=== PATIENT | female | born 1955 | race Caucasian/White ===

== ENCOUNTER 2016-09-29 22:37 | Emergency (ER) | payer BC ==
[~2016-09-29 22:37] MED LIST: ACYC1CAP8 PO; ALLE180T33 PO; ASPI81TA85 PO; BACTRIM PO; ESTR25TD TD; FLON1SPR; LOPE2CA PO; NAPR500T2 PO; PANT40TA2 PO; PENT10CA PO; PEPT262T2 PO; REST0.05 OU; TRAM50TA2 PO; VENL150C43 PO
[2016-09-29] MEDS ORDERED: ASPIRIN 81 MG CHEW TABLET As Ordered ONE (23:50)
[2016-09-29] MEDS ORDERED: NITROGLYCERIN 0.4 MG SUBL TABLET As Ordered ONE (23:50)
[2016-09-30 00:29] LABS: BASO % 1.1 % (0.0-1.0); EOS # 0.1 K/mm3 (0.0-0.50); LARGE UNSTAINED CELL # 0.1 K/mm3 (0.0-0.4); LARGE UNSTAINED CELL % 2.9 % (0.0-4.0); LYMPH # 1.6 K/mm3 (1.5-4.5); LYMPH % 34.3 % (24.0-44.0); MEAN CORPUSCULAR HEMOGLOBIN 30.3 pg (27.0-33.0); MEAN CORPUSCULAR HGB CONC 32.1 g/dl (32.0-36.5); MEAN CORPUSCULAR VOLUME 94.3 fl (80.0-96.0); MONO # 0.2 K/mm3 (0.0-0.8); MONO % 5.4 % (0.0-5.0); NEUTROPHILS # 2.3 K/mm3 (1.8-7.7); NEUTROPHILS % 53.3 % (36.0-66.0); PLATELET COUNT, AUTOMATED 149 k/mm3 (150-450); RED CELL DISTRIBUTION WIDTH 14.4 % (11.5-14.5); WHITE BLOOD COUNT 4.3 K/mm3 (4.0-10.0)
[2016-09-30 01:09] LABS: ANION GAP 10 MEQ/L (8-16); BLOOD UREA NITROGEN 16 MG/DL (7-18); CALCIUM LEVEL 8.7 MG/DL (8.8-10.2); CARBON DIOXIDE LEVEL 27 MEQ/L (21-32); CHLORIDE LEVEL 107 MEQ/L (98-107); CREATININE FOR GFR 1.31 MG/DL (0.55-1.02); GLOMERULAR FILTRATION RATE 44.1 (>45); GLUCOSE, FASTING 89 MG/DL (80-110); POTASSIUM SERUM 3.9 MEQ/L (3.5-5.1); SODIUM LEVEL 144 MEQ/L (136-145)
[2016-09-30] MEDS ORDERED: MORPHINE 2 MG/ML 1ML SYRINGE As Ordered ONE (03:41)
[2016-09-30] MEDS ORDERED: ONDANSETRON 4MG/2ML VIAL (J2405) As Ordered ONE (03:41)
[2016-09-30] MEDS ORDERED: GI COCKTAIL 50ML BTL(HYOSCYAMINE/MAALOX/LIDOCAINE VISCOUS)(1:3:1) As Ordered ONE (06:51)
--- NOTE | 2016-09-30 08:01 | EDDOCDS ---
Physician Documentation [facility] Name: Janie Field Age: 61 yrs Sex: Female : 1955 Arrival Date: 09/29/2016 Time: 22:37 Bed 17 Private MD: Disposition: 09/30/16 07:17 Discharged to Home/Self Care. Impression: Chest pain, unspecified. - Condition is Stable. - Discharge Instructions: Nonspecific Chest Pain, Gastroesophageal Reflux Disease, Adult, Nonspecific Chest Pain, [id number]. - Medication Reconciliation, Local Pharmacy Hours form. - Follow up: Ashley Menard; When: As previously arranged; Reason: Continuance of care. - Problem is an acute exacerbation. - Symptoms have improved. Historical: - Allergies: Dilaudid; Toradol; statins; metals; osteoprosis meds; - Home Meds: 1. aspirin 81 mg Oral chew 1 tab once daily 2. Elmiron 100 mg oral cap 1 cap 3 times per day 3. Dexilant 60 mg oral CpDB 1 cap once daily 4. Effexor XR 150 mg Oral cp24 1 cap once daily 5. pregabalin 25 mg Oral cap 1 caps nightly 6. Zofran (as hydrochloride) 4 mg Oral tab as needed 7. Bactrim DS Oral as needed 8. Pyridium 100 mg Oral tab as needed 9. Restasis 0.05 % ophthalmic dpet twice a day 10. Naprosyn 250 mg Oral tab 2 tabs daily 11. Fexofenadine HCl Oral once daily - PMHx: [place]; Stroke; sepsis; Chron's Disease; Interstitial Cystitis; Fibromyalgia; GERD; Hypertension; - PSHx: Ileostomy Construction; Hysterectomy; Carpal Tunnel Repair- Right; Carpal Tunnel Repair- Left; Cataract Surgery- Bilateral; - Social history: Smoking status: Patient states former smoker of tobacco. No barriers to communication noted, The patient speaks fluent Sudanese. - Family history: Not pertinent. - : The pt / caregiver states he / she is not on anticoagulants. Home medication list is obtained from the patient. - Exposure Risk Screening:: None identified. Vital Signs: 09/29 22:39 BP 155 / 80; Pulse 74; Resp 18; Temp 97.3(O); Pulse Ox 99% on R/A; Weight 64.86 kg / tadeo 142.99 lbs (R); Height 5 ft. 5 in. (165.10 cm) (R); Pain 4/10; 09/30 00:01 BP 152 / 98 (auto/); js15 00:01 Pulse 52 MON; Pulse Ox 97% ; js15 00:16 BP 141 / 78 (auto/); js15 00:16 Pulse 52 MON; Pulse Ox 96% ; js15 00:31 BP 131 / 65 (auto/); js15 00:31 Pulse 50 MON; Pulse Ox 97% ; js15 00:34 BP 141 / 78; Pain 4/10; kc3 00:35 BP 130 / 80; Pain 3/10; kc3 00:36 BP 131 / 65; Pain 2/10; kc3 01:01 Pulse 48 MON; Pulse Ox 98% ; js15 01:01 BP 109 / 57 (auto/); js15 01:31 BP 103 / 56 (auto/); js15 01:31 Pulse 50 MON; Pulse Ox 97% ; js15 02:01 Pulse 48 MON; Pulse Ox 97% ; js15 02:01 BP 112 / 56 (auto/); js15 02:31 BP 114 / 55 (auto/); js15 02:32 Pulse 50 MON; Pulse Ox 97% ; js15 03:01 BP 99 / 54 (auto/); js15 03:02 Pulse 46 MON; Pulse Ox 97% ; js15 04:43 Pulse 58 MON; Pulse Ox 96% ; js15 04:43 BP 123 / 73 (auto/); js15 04:58 BP 122 / 76 (auto/); js15 04:59 Pulse 50 MON; Pulse Ox 94% ; js15 05:13 BP 124 / 73 (auto/); js15 05:13 Pulse 50 MON; Pulse Ox 96% ; js15 05:28 BP 116 / 75 (auto/); js15 05:29 Pulse 58 MON; Pulse Ox 95% ; js15 05:42 Pulse 50 MON; Pulse Ox 96% ; js15 05:43 BP 124 / 61 (auto/); js15 05:57 Pulse 48 MON; Pulse Ox 96% ; js15 05:58 BP 120 / 75 (auto/); js15 06:13 BP 127 / 71 (auto/); js15 06:13 Pulse 46 MON; Pulse Ox 95% ; js15 06:43 BP 131 / 79 (auto/); bcj 06:43 Pulse 46 MON; Pulse Ox 96% ; bcj 06:58 BP 136 / 74 (auto/); bcj 06:58 Pulse 44 MON; Pulse Ox 95% ; bcj 09/29 22:39 Body Mass Index 23.80 (64.86 kg, 165.10 cm) tadeo MDM: 09/29 22:45 ECG WITH READING ER PHYS+CARDIAG ordered. EDMS 23:42 Aspirin Chewable Tablet 243 mg PO once ordered. mm11 23:42 Nitrostat 0.4 mg Sublingual every 5 minutes; hold if SBP<90mmHg.Document Pain Score mm11 Response to Each Dose x3 ordered. 23:42 Band Tumbler/Pulse Ox/q 30 min VS ordered. mm11 23:42 IV Saline Lock ordered. mm11 23:42 Rhythm Strip to chart ordered. mm11 23:42 Undress patient appropriately for examination ordered. mm11 23:43 Chest, 2 View (pa\E\lat) Ordered. EDMS 23:43 Basic Metabolic Profile Ordered. EDMS 23:43 CBC with Diff Ordered. EDMS 23:43 Cardiac Injury Profile Ordered. EDMS 23:43 Troponin Ordered. EDWY 09/30 00:23 Financial registration complete. [facility] 00:42 [facility] Agreement was scanned into [employer] and attached to record. [facility] 01:21 Basic Metabolic Profile Reviewed. 11 01:21 CBC with Diff Reviewed. mm11 01:21 Cardiac Injury Profile Reviewed. mm11 01:21 Troponin Reviewed. mm11 03:22 morphine 2 mg IVP once ordered. mm11 03:22 Ondansetron 4 mg IVP once ordered. mm11 04:10 Redraw CIP &Troponin (put time in details section) ordered. mm11 04:10 Repeat EKG (put time details section) ordered. mm11 04:13 Repeat EKG (put time details section) complete. kb5 04:13 Redraw CIP &Troponin (put time in details section) complete. kb5 04:14 CARDIAC INJURY PROFILE Ordered. EDMS 04:14 TROPONIN Ordered. EDMS 04:15 ELECTROCARDIOGRAM ADULT ordered. EDMS 06:42 CARDIAC INJURY PROFILE Reviewed. mm11 06:42 TROPONIN Reviewed. mm11 06:50 GI Cocktail - (Alum-Mag Hydroxide-Simeth 30 ml, Lidocaine 10 ml, Hyoscyamine 10 ml) PO mm11 once; Pre-mixed 50mL unit dose ordered. Administered Medications: 00:05 Drug: Aspirin 243 mg [aspirin 81 mg chewable tablet (3 tabs)] Route: PO; kc3 00:06 Drug: Nitrostat 0.4 mg [Nitrostat 0.4 mg sublingual tablet (1 tabs)] Route: Sublingual; kc3 00:17 Drug: Nitrostat 0.4 mg [Nitrostat 0.4 mg sublingual tablet (1 tabs)] Route: Sublingual; kc3 00:24 Drug: Nitrostat 0.4 mg [Nitrostat 0.4 mg sublingual tablet (1 tabs)] Route: Sublingual; kc3 00:34 Follow up: BP 141 / 78; Pain 4/10 Adult kc3 00:35 Follow up: BP 130 / 80; Pain 3/10 Adult; Pt's second dose delayed r/t pt c/o headache kc3 and wanted to delay time of second dose. 00:36 Follow up: BP 131 / 65; Pain 2/10 Adult kc3 03:48 Drug: morphine 2 mg [morphine 2 mg/mL intravenous cartridge (1 mL)] Route: IVP; Site: js15 left antecubital; 03:48 Drug: Ondansetron 4 mg [ondansetron HCl 2 mg/mL intravenous solution (2 mL)] Route: js15 IVP; Site: left antecubital; 06:54 Drug: GI Cocktail - (Alum-Mag Hydroxide-Simeth Suspension 225 mg-200 mg-25 mg/5 mL 30 js15 ml, Lidocaine Liquid 2 % 10 ml, Hyoscyamine Liquid 10 ml) Route: PO; Signatures: Dispatcher [employer] EDErasto Fields, RN RN Ranulfo Kuo, HORSE RACING MANAGER HORSE RACING MANAGER kb5 Cristóbal Rios DO DO mm11 Krista ShresthaRN RN ms18 Mesha Torres [facility] Alexandra Chu RN js15 Simona Chatterjee RN kc3 The chart was reviewed and I authenticate all verbal orders and agree with the evaluation and treatment provided.Attachments: 00:42 [facility] Payment Agreement [facility] MTDD
--- NOTE | 2016-09-30 08:01 | EDDOCDS ---
Nurse's Notes [facility] Name: Janie Field Age: 61 yrs Sex: Female : 1955 Arrival Date: 09/29/2016 Time: 22:37 Bed 17 Private MD: Diagnosis: Chest pain, unspecified Presentation: 09/29 22:45 Presenting complaint: Patient states: that all day long she has had chest pressure. Pt ms18 has had a nuclear stress test done in the past, showed angina. Pt reports being exhausted and have SOB, sleeping more, and worsening pressure this evening. Pt reports that the pain changed from pressure to stabbing. 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 pt took 1 81mg aspirin prior to coming to the ED. Adult Sepsis Screening: The patient does not have new or worsening altered mentation. Patient's respiratory rate is less than 22. Systolic blood pressure is greater than 100. Patient has a qSOFA score of 0- Negative Sepsis Screen. Suicide/Homicide risk assessment- the patient denies having any suicidal and/or homicidal ideations and does not present with any other emotional, behavioral or mental health complaints. Status: Patient is not a director of employer services or dependent. Transition of care: patient was not received from another setting of care. 22:45 Acuity: CHHAYA Level 2 ms18 22:45 Method Of Arrival: Walkin/Carried/Asstd ms18 Triage Assessment: 22:57 General: Appears in no apparent distress, comfortable, Behavior is appropriate for age, ms18 cooperative. Pain: Pain currently is 5 out of 10 on a pain scale. HIV screening NA for this visit Offered previously. Neurological: No deficits noted. Cardiovascular: Chest pain is described as mild, diffuse, quality is pressure, radiates Does not radiate. episodes are continuous began this morning. Respiratory: Airway is patent Respiratory effort is even, unlabored. Respiratory: Reports shortness of breath on exertion. Derm: Skin is pink, warm & dry. Historical: - Allergies: Dilaudid; Toradol; statins; metals; osteoprosis meds; - Home Meds: 1. aspirin 81 mg Oral chew 1 tab once daily 2. Elmiron 100 mg oral cap 1 cap 3 times per day 3. Dexilant 60 mg oral CpDB 1 cap once daily 4. Effexor XR 150 mg Oral cp24 1 cap once daily 5. pregabalin 25 mg Oral cap 1 caps nightly 6. Zofran (as hydrochloride) 4 mg Oral tab as needed 7. Bactrim DS Oral as needed 8. Pyridium 100 mg Oral tab as needed 9. Restasis 0.05 % ophthalmic dpet twice a day 10. Naprosyn 250 mg Oral tab 2 tabs daily 11. Fexofenadine HCl Oral once daily - PMHx: [place]; Stroke; sepsis; Chron's Disease; Interstitial Cystitis; Fibromyalgia; GERD; Hypertension; - PSHx: Ileostomy Construction; Hysterectomy; Carpal Tunnel Repair- Right; Carpal Tunnel Repair- Left; Cataract Surgery- Bilateral; - Social history: Smoking status: Patient states former smoker of tobacco. No barriers to communication noted, The patient speaks fluent Turkmen. - Family history: Not pertinent. - : The pt / caregiver states he / she is not on anticoagulants. Home medication list is obtained from the patient. - Exposure Risk Screening:: None identified. Screenin/30 00:21 Screening information is obtained from the patient. Fall risk: No risks identified. kc3 Assistance ADL's: requires no assistance with activities of daily living. Abuse/DV Screen: The patient / caregiver reports he/she is: not in a situation that causes fear, pain or injury. Nutritional screening: No deficits noted. home support is adequate. 07:39 Advance Directives: Currently, there is no health care proxy. [facility] Assessment: 09/29 23:30 General: Appears in no apparent distress, comfortable, Behavior is appropriate for age, kc3 cooperative. Pain: Location: chest Pain currently is 5 out of 10 on a pain scale. Neurological: Level of Consciousness is awake, alert, obeys commands, Oriented to person, place, time. Cardiovascular: Rhythm is sinus bradycardia Chest pain is described as Pain is 5 out of 10 on a pain scale. Respiratory: Airway is patent Respiratory effort is even, unlabored, Reports shortness of breath. Derm: Skin is pink, warm & dry. 09/30 00:21 General: Appears in no apparent distress, comfortable, Behavior is appropriate for age, kc3 cooperative. Pain: Location: chest. Neurological: Level of Consciousness is awake, alert, obeys commands, Oriented to person, place, time. Cardiovascular: Rhythm is sinus bradycardia Chest pain is described as Pain is 4 out of 10 on a pain scale. Respiratory: Airway is patent Respiratory effort is even, unlabored. Derm: Skin is pink, warm & dry. 01:21 General: Appears to be sleeping. Cardiovascular: Rhythm is sinus bradycardia. js15 Respiratory: Airway is patent Respiratory effort is even, unlabored, Respiratory pattern is regular, symmetrical. Derm: Skin is pink, warm & dry. 02:30 Reassessment: Patient appears in no apparent distress at this time. Pt appears to be js15 sleeping comfortably on stretcher with lights off; respirations even and unlabored; skin warm, dry; cardiac rhythm is regular, sinus lucretia; will continue to monitor. 03:45 Reassessment: Patient appears in no apparent distress at this time. Pt awake on js15 stretcher; reports chest pressure 4/10; respirations even and unlabored; cardiac rhythm is sinus lucretia; skin pink, warm, dry will continue to monitor. 05:00 General: Appears in no apparent distress, to be sleeping. Cardiovascular: Rhythm is js15 sinus bradycardia. Respiratory: Airway is patent Respiratory effort is even, unlabored, Respiratory pattern is regular, symmetrical. Derm: Skin is pink, warm & dry. 06:15 Reassessment: Patient appears in no apparent distress at this time. Pt resting on js15 stretcher with eyes closed; respirations even and unlabored; skin pink, warm, dry; cardiac rhythm is sinus lucretia; will continue to monitor. 07:37 General: Appears in no apparent distress, comfortable, Behavior is cooperative. Pain: bcj Location: chest Pain currently is 1 out of 10 on a pain scale. Cardiovascular: Rhythm is sinus bradycardia. Derm: Skin is pink, warm & dry. Vital Signs: 09/29 22:39 BP 155 / 80; Pulse 74; Resp 18; Temp 97.3(O); Pulse Ox 99% on R/A; Weight 64.86 kg (R); tadeo Height 5 ft. 5 in. (165.10 cm) (R); Pain 4/10; 09/30 00:01 BP 152 / 98 (auto/); js15 00:01 Pulse 52 MON; Pulse Ox 97% ; js15 00:16 BP 141 / 78 (auto/); js15 00:16 Pulse 52 MON; Pulse Ox 96% ; 15 00:31 BP 131 / 65 (auto/); 15 00:31 Pulse 50 MON; Pulse Ox 97% ; 15 00:34 BP 141 / 78; Pain 4/10; kc3 00:35 BP 130 / 80; Pain 3/10; kc3 00:36 BP 131 / 65; Pain 2/10; kc3 01:01 Pulse 48 MON; Pulse Ox 98% ; js15 01:01 BP 109 / 57 (auto/); js15 01:31 BP 103 / 56 (auto/); js15 01:31 Pulse 50 MON; Pulse Ox 97% ; js15 02:01 Pulse 48 MON; Pulse Ox 97% ; js15 02:01 BP 112 / 56 (auto/); js15 02:31 BP 114 / 55 (auto/); js15 02:32 Pulse 50 MON; Pulse Ox 97% ; js15 03:01 BP 99 / 54 (auto/); js15 03:02 Pulse 46 MON; Pulse Ox 97% ; js15 04:43 Pulse 58 MON; Pulse Ox 96% ; js15 04:43 BP 123 / 73 (auto/); js15 04:58 BP 122 / 76 (auto/); js15 04:59 Pulse 50 MON; Pulse Ox 94% ; js15 05:13 BP 124 / 73 (auto/); js15 05:13 Pulse 50 MON; Pulse Ox 96% ; js15 05:28 BP 116 / 75 (auto/); js15 05:29 Pulse 58 MON; Pulse Ox 95% ; js15 05:42 Pulse 50 MON; Pulse Ox 96% ; js15 05:43 BP 124 / 61 (auto/); js15 05:57 Pulse 48 MON; Pulse Ox 96% ; js15 05:58 BP 120 / 75 (auto/); js15 06:13 BP 127 / 71 (auto/); js15 06:13 Pulse 46 MON; Pulse Ox 95% ; js15 06:43 BP 131 / 79 (auto/); bcj 06:43 Pulse 46 MON; Pulse Ox 96% ; bcj 06:58 BP 136 / 74 (auto/); bcj 06:58 Pulse 44 MON; Pulse Ox 95% ; bcj 09/29 22:39 Body Mass Index 23.80 (64.86 kg, 165.10 cm) tadeo Vitals: 09/29 22:39 Log In Time: September 29, 2016 at 22:35. tadeo 22:40 RN notified that patient meets Red Flag criteria. tadeo ED Course: 22:39 Patient visited by Darlene Angela PCA. tadeo 22:39 Patient moved to Waiting tadeo 22:40 Patient visited by Darlene Angela PCA. tadeo 22:40 Patient moved to Pre RCE tadeo 22:41 Patient moved to 17 ms18 22:48 Triage Initiated ms18 22:59 Cristóbal Rios DO is Attending Physician. mm11 22:59 Patient visited by Cristóbal Rios DO. mm11 23:09 EKG done. (by ED staff). Reviewed by Cristóbal Rios DO. ms18 23:41 Patient visited by Cristóbal Rios DO. mm11 23:48 Patient moved to OBSERVATION mm11 23:55 Patient moved to Radiology ar 09/30 00:17 Patient moved to 17 kc3 00:21 Inserted saline lock: 20 gauge in left antecubital area and blood collected. The kc3 patient tolerated the procedure well. Labs drawn. (by ED staff). Sent per order to lab. 00:22 Basic Metabolic Profile Sent. kc3 00:22 CBC with Diff Sent. kc3 00:22 Cardiac Injury Profile Sent. kc3 00:22 Troponin Sent. kc3 00:23 Patient visited by Simona Chatterjee RN. kc3 00:42 [facility] Payment Agreement was scanned into [employer] and attached to record. slh 00:59 Patient visited by Alexandra Chu RN. js15 01:55 Patient visited by Cristóbal Rios DO. mm11 03:01 Patient visited by Darlene Angela PCA. tadeo 03:32 Patient visited by Cristóbal Rios DO. mm11 04:10 Patient visited by Cristóbal Rios DO. mm11 04:40 Patient visited by Cristóbal Rios DO. mm11 05:44 TROPONIN Sent. cln 05:44 CARDIAC INJURY PROFILE Sent. cln 05:44 EKG done. (by ED staff). Reviewed by Cristóbal Rios DO. cln 05:45 Patient visited by Paige Olivia PCA. cln 06:42 Patient visited by Alexandra Chu,ALIVIA. js15 07:17 Ashley Menard is Referral Physician. mm11 07:39 No apparent distress. Resting quietly. Awaiting disposition. bcj 07:39 The patient / caregiver is instructed regarding the plan of care and ED course. Cardiac bcj monitor on. Pulse ox on. NIBP on. 07:39 Discontinued lock intact. No procedures done that require assistance. [facility] 07:40 Patient visited by Erasto Ga RN. j Administered Medications: 00:05 Drug: Aspirin 243 mg [aspirin 81 mg chewable tablet (3 tabs)] Route: PO; kc3 00:06 Drug: Nitrostat 0.4 mg [Nitrostat 0.4 mg sublingual tablet (1 tabs)] Route: Sublingual; kc3 00:17 Drug: Nitrostat 0.4 mg [Nitrostat 0.4 mg sublingual tablet (1 tabs)] Route: Sublingual; kc3 00:24 Drug: Nitrostat 0.4 mg [Nitrostat 0.4 mg sublingual tablet (1 tabs)] Route: Sublingual; kc3 00:34 Follow up: BP 141 / 78; Pain 4/10 Adult kc3 00:35 Follow up: BP 130 / 80; Pain 3/10 Adult; Pt's second dose delayed r/t pt c/o headache kc3 and wanted to delay time of second dose. 00:36 Follow up: BP 131 / 65; Pain 2/10 Adult kc3 03:48 Drug: morphine 2 mg [morphine 2 mg/mL intravenous cartridge (1 mL)] Route: IVP; Site: js15 left antecubital; 03:48 Drug: Ondansetron 4 mg [ondansetron HCl 2 mg/mL intravenous solution (2 mL)] Route: js15 IVP; Site: left antecubital; 06:54 Drug: GI Cocktail - (Alum-Mag Hydroxide-Simeth Suspension 225 mg-200 mg-25 mg/5 mL 30 js15 ml, Lidocaine Liquid 2 % 10 ml, Hyoscyamine Liquid 10 ml) Route: PO; Intake: Order Results: Lab Order: Basic Metabolic Profile; SPEC09/30/16 00:17 Test: GLUCOSE, FASTING; Value: 89; Range: 80-110; Units: MG/DL; Status: F Test: BLOOD UREA NITROGEN; Value: 16; Range: 7-18; Units: MG/DL; Status: F Test: CREATININE FOR GFR; Value: 1.31; Range: 0.55-1.02; Abnormal: Above high normal; Units: MG/DL; Status: F Test: GLOMERULAR FILTRATION RATE; Value: 44.1; Range: >45; Abnormal: Below low normal; Status: F Test: SODIUM LEVEL; Value: 144; Range: 136-145; Units: MEQ/L; Status: F Test: POTASSIUM SERUM; Value: 3.9; Range: 3.5-5.1; Units: MEQ/L; Status: F Test: CHLORIDE LEVEL; Value: 107; Range: 98-107; Units: MEQ/L; Status: F Test: CARBON DIOXIDE LEVEL; Value: 27; Range: 21-32; Units: MEQ/L; Status: F Test: ANION GAP; Value: 10; Range: 8-16; Units: MEQ/L; Status: F Test: CALCIUM LEVEL; Value: 8.7; Range: 8.8-10.2; Abnormal: Below low normal; Units: MG/DL; Status: F Test Note: ; Units are mL/min/1.73 m2 Chronic Kidney Disease Staging per NKF: Stage I & II GFR >=60 Normal to Mildly Decreased Stage III GFR 30-59 Moderately Decreased Stage IV GFR 15-29 Severely Decreased Stage V GFR <15 Very Little GFR Left ESRD GFR <15 on BATTERY PARTS ASSEMBLER Lab Order: CBC with Diff; SPEC'M 09/30/16 00:17 Test: WHITE BLOOD COUNT; Value: 4.3; Range: 4.0-10.0; Units: K/mm3; Status: F Test: RED BLOOD COUNT; Value: 3.99; Range: 4.00-5.40; Abnormal: Below low normal; Units: M/mm3; Status: F Test: HEMOGLOBIN; Value: 12.1; Range: 12.0-16.0; Units: g/dl; Status: F Test: HEMATOCRIT; Value: 37.6; Range: 36.0-47.0; Units: %; Status: F Test: MEAN CORPUSCULAR VOLUME; Value: 94.3; Range: 80.0-96.0; Units: fl; Status: F Test: MEAN CORPUSCULAR HEMOGLOBIN; Value: 30.3; Range: 27.0-33.0; Units: pg; Status: F Test: MEAN CORPUSCULAR HGB CONC; Value: 32.1; Range: 32.0-36.5; Units: g/dl; Status: F Test: RED CELL DISTRIBUTION WIDTH; Value: 14.4; Range: 11.5-14.5; Units: %; Status: F Test: PLATELET COUNT, AUTOMATED; Value: 149; Range: 150-450; Abnormal: Below low normal; Units: k/mm3; Status: F Test: NEUTROPHILS %; Value: 53.3; Range: 36.0-66.0; Units: %; Status: F Test: LYMPH %; Value: 34.3; Range: 24.0-44.0; Units: %; Status: F Test: MONO %; Value: 5.4; Range: 0.0-5.0; Abnormal: Above high normal; Units: %; Status: F Test: EOS %; Value: 3.0; Range: 0.0-3.0; Units: %; Status: F Test: BASO %; Value: 1.1; Range: 0.0-1.0; Abnormal: Above high normal; Units: %; Status: F Test: LARGE UNSTAINED CELL %; Value: 2.9; Range: 0.0-4.0; Units: %; Status: F Test: NEUTROPHILS #; Value: 2.3; Range: 1.8-7.7; Units: K/mm3; Status: F Test: LYMPH #; Value: 1.6; Range: 1.5-4.5; Units: K/mm3; Status: F Test: MONO #; Value: 0.2; Range: 0.0-0.8; Units: K/mm3; Status: F Test: EOS #; Value: 0.1; Range: 0.0-0.50; Units: K/mm3; Status: F Test: BASO #; Value: 0.0; Range: 0.0-0.2; Units: K/mm3; Status: F Test: LARGE UNSTAINED CELL #; Value: 0.1; Range: 0.0-0.4; Units: K/mm3; Status: F Lab Order: Cardiac Injury Profile; SPEC'M 09/30/16 00:17 Test: CPK CREATINE PHOSPHOKINASE; Value: 96; Range: 26-192; Units: U/L; Status: F Test: CK-MB VALUE MASS; Value: 1.4; Range: 0.0-3.6; Units: NG/ML; Status: F Test: MB/CK RELATIVE INDEX; Value: 1.45; Range: < OR =4; Status: F Test Note: ; DIAGNOSIS CRITERIA MMB ng/ml Relative Index (RI) NON-AMI < or = 5 N/A CARMONA ZONE > 5 < or = 4 AMI > 5 > 4 Lab Order: Troponin; SPEC'M 09/30/16 00:17 Test: TROPONIN I; Value: < 0.02; Range: < 0.10; Units: NG/ML; Status: F Test Note: ; Troponin I Reference Interval for [employer]: 99th Percentile= 0.00-0.045 ng/ml Risk Stratification: <= 0.10 ng/ml Decreased Risk for Adverse Clinical Events. 0.10-1.50 ng/ml Increased Risk for Adverse Clinical Events. Evaluation of additional criterion and/or repeat testing in 2-6 hours is suggested to rule out myocardial damage. >= 1.50 ng/ml Indicative of Myocardial Injury. Lab Order: CARDIAC INJURY PROFILE; SPEC'M 09/30/16 05:39 Test: CPK CREATINE PHOSPHOKINASE; Value: 84; Range: 26-192; Units: U/L; Status: F Test: CK-MB VALUE MASS; Value: 1.6; Range: 0.0-3.6; Units: NG/ML; Status: F Test: MB/CK RELATIVE INDEX; Value: 1.90; Range: < OR =4; Status: F Test Note: ; DIAGNOSIS CRITERIA MMB ng/ml Relative Index (RI) NON-AMI < or = 5 N/A CARMONA ZONE > 5 < or = 4 AMI > 5 > 4 Lab Order: TROPONIN; SPEC'M 09/30/16 05:39 Test: TROPONIN I; Value: < 0.02; Range: < 0.10; Units: NG/ML; Status: F Test Note: ; Troponin I Reference Interval for [employer]: 99th Percentile= 0.00-0.045 ng/ml Risk Stratification: <= 0.10 ng/ml Decreased Risk for Adverse Clinical Events. 0.10-1.50 ng/ml Increased Risk for Adverse Clinical Events. Evaluation of additional criterion and/or repeat testing in 2-6 hours is suggested to rule out myocardial damage. >= 1.50 ng/ml Indicative of Myocardial Injury. Outcome: 07:17 Discharge ordered by Provider. mm11 07:39 Discharge Assessment: patient administered narcotics - no. The following High Risk [facility] Discharge criteria are identified: None. Discharged to home ambulatory, with family. Condition: stable. Discharge instructions given to patient, Instructed on discharge instructions, follow up and referral plans. medication usage. No special radiology studies were completed. Property :Personal belongings accompany Pt. 08:00 Patient left the ED. [facility] Signatures: Erasto Ga, RN RN bcJosh Kennedy Matthew, DO mm11 Darlene Angela, SURVEY RESEARCH TEACHER SURVEY RESEARCH TEACHER tadeo Krista Shrestha,RN RN ms18 Mesha Torres Julia,ALIVIA RN js15 Simona Chatterjee,RN RN kc3 Paige Olivia, SURVEY RESEARCH TEACHER SURVEY RESEARCH TEACHER cln MTDD
--- NOTE | 2016-09-30 11:24 | REP ---
Clinical: Acute chest pain . Comparison: None . Technique: PA and lateral. Findings: The mediastinum and cardiac silhouette are normal. The lung porter are clear and without acute consolidation, effusion, or pneumothorax. The skeletal structures are intact and normal. Impression: 1. No acute cardiopulmonary process. Signed by Neal Swain MD 09/30/2016 01:22 A
--- NOTE | 2016-09-30 19:21 | ECGEPIP ---
Stationary ECG Study 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
--- NOTE | 2016-09-30 20:52 | ECGEPIP ---
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
--- NOTE | 2016-10-02 09:01 | EDDOCDS ---
Nurse's Notes [facility] Name: Janie Bernstein Age: 61 yrs Sex: Female : 1955 Arrival Date: 09/29/2016 Time: 22:37 Bed 17 Private MD: Diagnosis: Chest pain, unspecified Presentation: 09/29 22:45 Presenting complaint: Patient states: that all day long she has had chest pressure. Pt ms18 has had a nuclear stress test done in the past, showed angina. Pt reports being exhausted and have SOB, sleeping more, and worsening pressure this evening. Pt reports that the pain changed from pressure to stabbing. 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 pt took 1 81mg aspirin prior to coming to the ED. Adult Sepsis Screening: The patient does not have new or worsening altered mentation. Patient's respiratory rate is less than 22. Systolic blood pressure is greater than 100. Patient has a qSOFA score of 0- Negative Sepsis Screen. Suicide/Homicide risk assessment- the patient denies having any suicidal and/or homicidal ideations and does not present with any other emotional, behavioral or mental health complaints. Status: Patient is not a client service representative or dependent. Transition of care: patient was not received from another setting of care. 22:45 Acuity: CHHAYA Level 2 ms18 22:45 Method Of Arrival: Walkin/Carried/Asstd ms18 Triage Assessment: 22:57 General: Appears in no apparent distress, comfortable, Behavior is appropriate for age, ms18 cooperative. Pain: Pain currently is 5 out of 10 on a pain scale. HIV screening NA for this visit Offered previously. Neurological: No deficits noted. Cardiovascular: Chest pain is described as mild, diffuse, quality is pressure, radiates Does not radiate. episodes are continuous began this morning. Respiratory: Airway is patent Respiratory effort is even, unlabored. Respiratory: Reports shortness of breath on exertion. Derm: Skin is pink, warm & dry. Historical: - Allergies: Dilaudid; Toradol; statins; metals; osteoprosis meds; - Home Meds: 1. aspirin 81 mg Oral chew 1 tab once daily 2. Elmiron 100 mg oral cap 1 cap 3 times per day 3. Dexilant 60 mg oral CpDB 1 cap once daily 4. Effexor XR 150 mg Oral cp24 1 cap once daily 5. pregabalin 25 mg Oral cap 1 caps nightly 6. Zofran (as hydrochloride) 4 mg Oral tab as needed 7. Bactrim DS Oral as needed 8. Pyridium 100 mg Oral tab as needed 9. Restasis 0.05 % ophthalmic dpet twice a day 10. Naprosyn 250 mg Oral tab 2 tabs daily 11. Fexofenadine HCl Oral once daily - PMHx: [place]; Stroke; sepsis; Chron's Disease; Interstitial Cystitis; Fibromyalgia; GERD; Hypertension; - PSHx: Ileostomy Construction; Hysterectomy; Carpal Tunnel Repair- Right; Carpal Tunnel Repair- Left; Cataract Surgery- Bilateral; - Social history: Smoking status: Patient states former smoker of tobacco. No barriers to communication noted, The patient speaks fluent [place]serratian. - Family history: Not pertinent. - : The pt / caregiver states he / she is not on anticoagulants. Home medication list is obtained from the patient. - Exposure Risk Screening:: None identified. Screenin/30 00:21 Screening information is obtained from the patient. Fall risk: No risks identified. kc3 Assistance ADL's: requires no assistance with activities of daily living. Abuse/DV Screen: The patient / caregiver reports he/she is: not in a situation that causes fear, pain or injury. Nutritional screening: No deficits noted. home support is adequate. 07:39 Advance Directives: Currently, there is no health care proxy. [facility] Assessment: 09/29 23:30 General: Appears in no apparent distress, comfortable, Behavior is appropriate for age, kc3 cooperative. Pain: Location: chest Pain currently is 5 out of 10 on a pain scale. Neurological: Level of Consciousness is awake, alert, obeys commands, Oriented to person, place, time. Cardiovascular: Rhythm is sinus bradycardia Chest pain is described as Pain is 5 out of 10 on a pain scale. Respiratory: Airway is patent Respiratory effort is even, unlabored, Reports shortness of breath. Derm: Skin is pink, warm & dry. 09/30 00:21 General: Appears in no apparent distress, comfortable, Behavior is appropriate for age, kc3 cooperative. Pain: Location: chest. Neurological: Level of Consciousness is awake, alert, obeys commands, Oriented to person, place, time. Cardiovascular: Rhythm is sinus bradycardia Chest pain is described as Pain is 4 out of 10 on a pain scale. Respiratory: Airway is patent Respiratory effort is even, unlabored. Derm: Skin is pink, warm & dry. 01:21 General: Appears to be sleeping. Cardiovascular: Rhythm is sinus bradycardia. js15 Respiratory: Airway is patent Respiratory effort is even, unlabored, Respiratory pattern is regular, symmetrical. Derm: Skin is pink, warm & dry. 02:30 Reassessment: Patient appears in no apparent distress at this time. Pt appears to be js15 sleeping comfortably on stretcher with lights off; respirations even and unlabored; skin warm, dry; cardiac rhythm is regular, sinus lucretia; will continue to monitor. 03:45 Reassessment: Patient appears in no apparent distress at this time. Pt awake on js15 stretcher; reports chest pressure 4/10; respirations even and unlabored; cardiac rhythm is sinus lucretia; skin pink, warm, dry will continue to monitor. 05:00 General: Appears in no apparent distress, to be sleeping. Cardiovascular: Rhythm is js15 sinus bradycardia. Respiratory: Airway is patent Respiratory effort is even, unlabored, Respiratory pattern is regular, symmetrical. Derm: Skin is pink, warm & dry. 06:15 Reassessment: Patient appears in no apparent distress at this time. Pt resting on js15 stretcher with eyes closed; respirations even and unlabored; skin pink, warm, dry; cardiac rhythm is sinus lucretia; will continue to monitor. 07:37 General: Appears in no apparent distress, comfortable, Behavior is cooperative. Pain: bcj Location: chest Pain currently is 1 out of 10 on a pain scale. Cardiovascular: Rhythm is sinus bradycardia. Derm: Skin is pink, warm & dry. Vital Signs: 09/29 22:39 BP 155 / 80; Pulse 74; Resp 18; Temp 97.3(O); Pulse Ox 99% on R/A; Weight 64.86 kg (R); tadeo Height 5 ft. 5 in. (165.10 cm) (R); Pain 4/10; 09/30 00:01 BP 152 / 98 (auto/); js15 00:01 Pulse 52 MON; Pulse Ox 97% ; js15 00:16 BP 141 / 78 (auto/); js15 00:16 Pulse 52 MON; Pulse Ox 96% ; 15 00:31 BP 131 / 65 (auto/); 15 00:31 Pulse 50 MON; Pulse Ox 97% ; 15 00:34 BP 141 / 78; Pain 4/10; kc3 00:35 BP 130 / 80; Pain 3/10; kc3 00:36 BP 131 / 65; Pain 2/10; kc3 01:01 Pulse 48 MON; Pulse Ox 98% ; js15 01:01 BP 109 / 57 (auto/); js15 01:31 BP 103 / 56 (auto/); js15 01:31 Pulse 50 MON; Pulse Ox 97% ; js15 02:01 Pulse 48 MON; Pulse Ox 97% ; js15 02:01 BP 112 / 56 (auto/); js15 02:31 BP 114 / 55 (auto/); js15 02:32 Pulse 50 MON; Pulse Ox 97% ; js15 03:01 BP 99 / 54 (auto/); js15 03:02 Pulse 46 MON; Pulse Ox 97% ; js15 04:43 Pulse 58 MON; Pulse Ox 96% ; js15 04:43 BP 123 / 73 (auto/); js15 04:58 BP 122 / 76 (auto/); js15 04:59 Pulse 50 MON; Pulse Ox 94% ; js15 05:13 BP 124 / 73 (auto/); js15 05:13 Pulse 50 MON; Pulse Ox 96% ; js15 05:28 BP 116 / 75 (auto/); js15 05:29 Pulse 58 MON; Pulse Ox 95% ; js15 05:42 Pulse 50 MON; Pulse Ox 96% ; js15 05:43 BP 124 / 61 (auto/); js15 05:57 Pulse 48 MON; Pulse Ox 96% ; js15 05:58 BP 120 / 75 (auto/); js15 06:13 BP 127 / 71 (auto/); js15 06:13 Pulse 46 MON; Pulse Ox 95% ; js15 06:43 BP 131 / 79 (auto/); bcj 06:43 Pulse 46 MON; Pulse Ox 96% ; bcj 06:58 BP 136 / 74 (auto/); bcj 06:58 Pulse 44 MON; Pulse Ox 95% ; bcj 09/29 22:39 Body Mass Index 23.80 (64.86 kg, 165.10 cm) tadeo Vitals: 09/29 22:39 Log In Time: September 29, 2016 at 22:35. tadeo 22:40 RN notified that patient meets Red Flag criteria. tadeo ED Course: 22:39 Patient visited by Darlene Angela PCA. tadeo 22:39 Patient moved to Waiting tadeo 22:40 Patient visited by Darlene Angela PCA. tadeo 22:40 Patient moved to Pre RCE tadeo 22:41 Patient moved to 17 ms18 22:48 Triage Initiated ms18 22:59 Janice Rios DO is Attending Physician. mm11 22:59 Patient visited by Janice Rios DO. mm11 23:09 EKG done. (by ED staff). Reviewed by Janice Rios DO. ms18 23:41 Patient visited by Janice Rios DO. mm11 23:48 Patient moved to OBSERVATION mm11 23:55 Patient moved to Radiology ar 09/30 00:17 Patient moved to 17 kc3 00:21 Inserted saline lock: 20 gauge in left antecubital area and blood collected. The kc3 patient tolerated the procedure well. Labs drawn. (by ED staff). Sent per order to lab. 00:22 Basic Metabolic Profile Sent. kc3 00:22 CBC with Diff Sent. kc3 00:22 Cardiac Injury Profile Sent. kc3 00:22 Troponin Sent. kc3 00:23 Patient visited by Simona Chatterjee RN. kc3 00:42 [facility] Payment Agreement was scanned into [employer] and attached to record. slh 00:59 Patient visited by Alexandra Chu RN. js15 01:55 Patient visited by Janice Rios DO. mm11 03:01 Patient visited by Darlene Angela PCA. tadeo 03:32 Patient visited by Janice Rios DO. mm11 04:10 Patient visited by Janice Rios DO. mm11 04:40 Patient visited by Janice Rios DO. mm11 05:44 TROPONIN Sent. cln 05:44 CARDIAC INJURY PROFILE Sent. cln 05:44 EKG done. (by ED staff). Reviewed by Janice Rios DO. cln 05:45 Patient visited by Paige Olivia PCA. cln 06:42 Patient visited by Alexandra Chu,ALIVIA. js15 07:17 Ashley Menard is Referral Physician. mm11 07:39 No apparent distress. Resting quietly. Awaiting disposition. bcj 07:39 The patient / caregiver is instructed regarding the plan of care and ED course. Cardiac bcj monitor on. Pulse ox on. NIBP on. 07:39 Discontinued lock intact. No procedures done that require assistance. j 07:40 Patient visited by Erasto Ga RN. j 11:53 Chest, 2 View (pa\E\lat) Returned. EDMS 15:02 T-Sheet-- Draft Copy was scanned into [employer] and attached to record. gb 15:02 ECG/EKG was scanned into [employer] and attached to record. gb 20:00 ELECTROCARDIOGRAM ADULT Returned. EDMS 21:37 EKG-ADULT Returned. EDMS Administered Medications: 00:05 Drug: Aspirin 243 mg [aspirin 81 mg chewable tablet (3 tabs)] Route: PO; kc3 00:06 Drug: Nitrostat 0.4 mg [Nitrostat 0.4 mg sublingual tablet (1 tabs)] Route: Sublingual; kc3 00:17 Drug: Nitrostat 0.4 mg [Nitrostat 0.4 mg sublingual tablet (1 tabs)] Route: Sublingual; kc3 00:24 Drug: Nitrostat 0.4 mg [Nitrostat 0.4 mg sublingual tablet (1 tabs)] Route: Sublingual; kc3 00:34 Follow up: BP 141 / 78; Pain 4/10 Adult kc3 00:35 Follow up: BP 130 / 80; Pain 3/10 Adult; Pt's second dose delayed r/t pt c/o headache kc3 and wanted to delay time of second dose. 00:36 Follow up: BP 131 / 65; Pain 2/10 Adult kc3 03:48 Drug: morphine 2 mg [morphine 2 mg/mL intravenous cartridge (1 mL)] Route: IVP; Site: js15 left antecubital; 03:48 Drug: Ondansetron 4 mg [ondansetron HCl 2 mg/mL intravenous solution (2 mL)] Route: js15 IVP; Site: left antecubital; 06:54 Drug: GI Cocktail - (Alum-Mag Hydroxide-Simeth Suspension 225 mg-200 mg-25 mg/5 mL 30 js15 ml, Lidocaine Liquid 2 % 10 ml, Hyoscyamine Liquid 10 ml) Route: PO; Intake: Order Results: Lab Order: Basic Metabolic Profile; SPEC'M 09/30/16 00:17 Test: GLUCOSE, FASTING; Value: 89; Range: 80-110; Units: MG/DL; Status: F Test: BLOOD UREA NITROGEN; Value: 16; Range: 7-18; Units: MG/DL; Status: F Test: CREATININE FOR GFR; Value: 1.31; Range: 0.55-1.02; Abnormal: Above high normal; Units: MG/DL; Status: F Test: GLOMERULAR FILTRATION RATE; Value: 44.1; Range: >45; Abnormal: Below low normal; Status: F Test: SODIUM LEVEL; Value: 144; Range: 136-145; Units: MEQ/L; Status: F Test: POTASSIUM SERUM; Value: 3.9; Range: 3.5-5.1; Units: MEQ/L; Status: F Test: CHLORIDE LEVEL; Value: 107; Range: 98-107; Units: MEQ/L; Status: F Test: CARBON DIOXIDE LEVEL; Value: 27; Range: 21-32; Units: MEQ/L; Status: F Test: ANION GAP; Value: 10; Range: 8-16; Units: MEQ/L; Status: F Test: CALCIUM LEVEL; Value: 8.7; Range: 8.8-10.2; Abnormal: Below low normal; Units: MG/DL; Status: F Test Note: ; Units are mL/min/1.73 m2 Chronic Kidney Disease Staging per NKF: Stage I & II GFR >=60 Normal to Mildly Decreased Stage III GFR 30-59 Moderately Decreased Stage IV GFR 15-29 Severely Decreased Stage V GFR <15 Very Little GFR Left ESRD GFR <15 on PHYSICAL METALLURGIST Lab Order: CBC with Diff; SPEC'M 09/30/16 00:17 Test: WHITE BLOOD COUNT; Value: 4.3; Range: 4.0-10.0; Units: K/mm3; Status: F Test: RED BLOOD COUNT; Value: 3.99; Range: 4.00-5.40; Abnormal: Below low normal; Units: M/mm3; Status: F Test: HEMOGLOBIN; Value: 12.1; Range: 12.0-16.0; Units: g/dl; Status: F Test: HEMATOCRIT; Value: 37.6; Range: 36.0-47.0; Units: %; Status: F Test: MEAN CORPUSCULAR VOLUME; Value: 94.3; Range: 80.0-96.0; Units: fl; Status: F Test: MEAN CORPUSCULAR HEMOGLOBIN; Value: 30.3; Range: 27.0-33.0; Units: pg; Status: F Test: MEAN CORPUSCULAR HGB CONC; Value: 32.1; Range: 32.0-36.5; Units: g/dl; Status: F Test: RED CELL DISTRIBUTION WIDTH; Value: 14.4; Range: 11.5-14.5; Units: %; Status: F Test: PLATELET COUNT, AUTOMATED; Value: 149; Range: 150-450; Abnormal: Below low normal; Units: k/mm3; Status: F Test: NEUTROPHILS %; Value: 53.3; Range: 36.0-66.0; Units: %; Status: F Test: LYMPH %; Value: 34.3; Range: 24.0-44.0; Units: %; Status: F Test: MONO %; Value: 5.4; Range: 0.0-5.0; Abnormal: Above high normal; Units: %; Status: F Test: EOS %; Value: 3.0; Range: 0.0-3.0; Units: %; Status: F Test: BASO %; Value: 1.1; Range: 0.0-1.0; Abnormal: Above high normal; Units: %; Status: F Test: LARGE UNSTAINED CELL %; Value: 2.9; Range: 0.0-4.0; Units: %; Status: F Test: NEUTROPHILS #; Value: 2.3; Range: 1.8-7.7; Units: K/mm3; Status: F Test: LYMPH #; Value: 1.6; Range: 1.5-4.5; Units: K/mm3; Status: F Test: MONO #; Value: 0.2; Range: 0.0-0.8; Units: K/mm3; Status: F Test: EOS #; Value: 0.1; Range: 0.0-0.50; Units: K/mm3; Status: F Test: BASO #; Value: 0.0; Range: 0.0-0.2; Units: K/mm3; Status: F Test: LARGE UNSTAINED CELL #; Value: 0.1; Range: 0.0-0.4; Units: K/mm3; Status: F Lab Order: Cardiac Injury Profile; [facility] 09/30/16 00:17 Test: CPK CREATINE PHOSPHOKINASE; Value: 96; Range: 26-192; Units: U/L; Status: F Test: CK-MB VALUE MASS; Value: 1.4; Range: 0.0-3.6; Units: NG/ML; Status: F Test: MB/CK RELATIVE INDEX; Value: 1.45; Range: < OR =4; Status: F Test Note: ; DIAGNOSIS CRITERIA MMB ng/ml Relative Index (RI) NON-AMI < or = 5 N/A [place]ONE > 5 < or = 4 AMI > 5 > 4 Lab Order: Troponin; [facility] 09/30/16 00:17 Test: TROPONIN I; Value: < 0.02; Range: < 0.10; Units: NG/ML; Status: F Test Note: ; Troponin I Reference Interval for [place] LOCI: 99th Percentile= 0.00-0.045 ng/ml Risk Stratification: <= 0.10 ng/ml Decreased Risk for Adverse Clinical Events. 0.10-1.50 ng/ml Increased Risk for Adverse Clinical Events. Evaluation of additional criterion and/or repeat testing in 2-6 hours is suggested to rule out myocardial damage. >= 1.50 ng/ml Indicative of Myocardial Injury. Lab Order: CARDIAC INJURY PROFILE; [facility] 09/30/16 05:39 Test: CPK CREATINE PHOSPHOKINASE; Value: 84; Range: 26-192; Units: U/L; Status: F Test: CK-MB VALUE MASS; Value: 1.6; Range: 0.0-3.6; Units: NG/ML; Status: F Test: MB/CK RELATIVE INDEX; Value: 1.90; Range: < OR =4; Status: F Test Note: ; DIAGNOSIS CRITERIA MMB ng/ml Relative Index (RI) NON-AMI < or = 5 N/A [place]MON[place] ZONE > 5 < or = 4 AMI > 5 > 4 Lab Order: TROPONIN; SPEC' 09/30/16 05:39 Test: TROPONIN I; Value: < 0.02; Range: < 0.10; Units: NG/ML; Status: F Test Note: ; Troponin I Reference Interval for [employer] [place] LOCI: 99th Percentile= 0.00-0.045 ng/ml Risk Stratification: <= 0.10 ng/ml Decreased Risk for Adverse Clinical Events. 0.10-1.50 ng/ml Increased Risk for Adverse Clinical Events. Evaluation of additional criterion and/or repeat testing in 2-6 hours is suggested to rule out myocardial damage. >= 1.50 ng/ml Indicative of Myocardial Injury. 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; : 1955 Requested By: JANICE York; Order Number: [id number] Reading MD: Jamila Yan; Measurements; Intervals [place]; Rate: 56 P: 64; [place]: 154 QRS: 2; QRSD: 102 T: 40; QT: 450; QTc: 435; Interpretive Statements; SINUS BRADYCARDIA WITH MARKED SINUS ARRHYTHMIA; POSSIBLE LEFT ATRIAL ENLARGEMENT; POSSIBLE RIGHT VENTRICULAR CONDUCTION DELAY; NO PRIOR FOR COMPARISON; Electronically Signed On 09-30-2016 20:51:52 EST by Jamila Yan; Radiology Order: Chest, 2 View (pa\E\lat) Test: Chest, 2 View (pa\E\lat) REASON FOR EXAMINATION: Chest Pain; Clinical: Acute chest pain .; ; Comparison: None .; ; Technique: PA and lateral.; ; Findings:; The mediastinum and cardiac silhouette are normal. The lung porter are clear and; without acute consolidation, effusion, or pneumothorax. The skeletal structures; are intact and normal.; ; Impression:; 1. 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 mm11 07:39 Discharge Assessment: patient administered narcotics - no. The following High Risk [facility] Discharge criteria are identified: None. Discharged to home ambulatory, with family. Condition: stable. Discharge instructions given to patient, Instructed on discharge instructions, follow up and referral plans. medication usage. No special radiology studies were completed. Property :Personal belongings accompany Pt. 08:00 Patient left the ED. [facility] Signatures: Dispatcher [employer] EDMS Erasto Ga, RN RN bcJosh Kennedy Gloria, Reg Reg gb Janice Rios, DO DO mm11 Darlene Angela, VISUAL EFFECTS EDITOR VISUAL EFFECTS EDITOR tadeo Krista Shrestha,RN RN ms18 Mesha Torres Julia,RN RN js15 Simona Chatterjee,ALIVIA RN kc3 Paige Olivia, VISUAL EFFECTS EDITOR VISUAL EFFECTS EDITOR cln Chart Complete MTDD
--- NOTE | 2016-10-02 09:01 | EDDOCDS ---
Physician Documentation [facility] Name: Janie Field Age: 61 yrs Sex: Female : 1955 Arrival Date: 09/29/2016 Time: 22:37 Bed 17 Private MD: Disposition: 09/30/16 07:17 Discharged to Home/Self Care. Impression: Chest pain, unspecified. - Condition is Stable. - Discharge Instructions: Nonspecific Chest Pain, Gastroesophageal Reflux Disease, Adult, Nonspecific Chest Pain, [id number]. - Medication Reconciliation, Local Pharmacy Hours form. - Follow up: Ashley Menard; When: As previously arranged; Reason: Continuance of care. - Problem is an acute exacerbation. - Symptoms have improved. Historical: - Allergies: Dilaudid; Toradol; statins; metals; osteoprosis meds; - Home Meds: 1. aspirin 81 mg Oral chew 1 tab once daily 2. Elmiron 100 mg oral cap 1 cap 3 times per day 3. Dexilant 60 mg oral CpDB 1 cap once daily 4. Effexor XR 150 mg Oral cp24 1 cap once daily 5. pregabalin 25 mg Oral cap 1 caps nightly 6. Zofran (as hydrochloride) 4 mg Oral tab as needed 7. Bactrim DS Oral as needed 8. Pyridium 100 mg Oral tab as needed 9. Restasis 0.05 % ophthalmic dpet twice a day 10. Naprosyn 250 mg Oral tab 2 tabs daily 11. Fexofenadine HCl Oral once daily - PMHx: [place]; Stroke; sepsis; Chron's Disease; Interstitial Cystitis; Fibromyalgia; GERD; Hypertension; - PSHx: Ileostomy Construction; Hysterectomy; Carpal Tunnel Repair- Right; Carpal Tunnel Repair- Left; Cataract Surgery- Bilateral; - Social history: Smoking status: Patient states former smoker of tobacco. No barriers to communication noted, The patient speaks fluent Niuean. - Family history: Not pertinent. - : The pt / caregiver states he / she is not on anticoagulants. Home medication list is obtained from the patient. - Exposure Risk Screening:: None identified. Vital Signs: 09/29 22:39 BP 155 / 80; Pulse 74; Resp 18; Temp 97.3(O); Pulse Ox 99% on R/A; Weight 64.86 kg / tadeo 142.99 lbs (R); Height 5 ft. 5 in. (165.10 cm) (R); Pain 4/10; 09/30 00:01 BP 152 / 98 (auto/); js15 00:01 Pulse 52 MON; Pulse Ox 97% ; js15 00:16 BP 141 / 78 (auto/); js15 00:16 Pulse 52 MON; Pulse Ox 96% ; js15 00:31 BP 131 / 65 (auto/); js15 00:31 Pulse 50 MON; Pulse Ox 97% ; js15 00:34 BP 141 / 78; Pain 4/10; kc3 00:35 BP 130 / 80; Pain 3/10; kc3 00:36 BP 131 / 65; Pain 2/10; kc3 01:01 Pulse 48 MON; Pulse Ox 98% ; js15 01:01 BP 109 / 57 (auto/); js15 01:31 BP 103 / 56 (auto/); js15 01:31 Pulse 50 MON; Pulse Ox 97% ; js15 02:01 Pulse 48 MON; Pulse Ox 97% ; js15 02:01 BP 112 / 56 (auto/); js15 02:31 BP 114 / 55 (auto/); js15 02:32 Pulse 50 MON; Pulse Ox 97% ; js15 03:01 BP 99 / 54 (auto/); js15 03:02 Pulse 46 MON; Pulse Ox 97% ; js15 04:43 Pulse 58 MON; Pulse Ox 96% ; js15 04:43 BP 123 / 73 (auto/); js15 04:58 BP 122 / 76 (auto/); js15 04:59 Pulse 50 MON; Pulse Ox 94% ; js15 05:13 BP 124 / 73 (auto/); js15 05:13 Pulse 50 MON; Pulse Ox 96% ; js15 05:28 BP 116 / 75 (auto/); js15 05:29 Pulse 58 MON; Pulse Ox 95% ; js15 05:42 Pulse 50 MON; Pulse Ox 96% ; js15 05:43 BP 124 / 61 (auto/); js15 05:57 Pulse 48 MON; Pulse Ox 96% ; js15 05:58 BP 120 / 75 (auto/); js15 06:13 BP 127 / 71 (auto/); js15 06:13 Pulse 46 MON; Pulse Ox 95% ; js15 06:43 BP 131 / 79 (auto/); bcj 06:43 Pulse 46 MON; Pulse Ox 96% ; bcj 06:58 BP 136 / 74 (auto/); bcj 06:58 Pulse 44 MON; Pulse Ox 95% ; bcj 09/29 22:39 Body Mass Index 23.80 (64.86 kg, 165.10 cm) tadeo MDM: 09/29 22:45 ECG WITH READING ER PHYS+CARDIAG ordered. EDMS 23:42 Aspirin Chewable Tablet 243 mg PO once ordered. mm11 23:42 Nitrostat 0.4 mg Sublingual every 5 minutes; hold if SBP<90mmHg.Document Pain Score mm11 Response to Each Dose x3 ordered. 23:42 Camp Boss/Pulse Ox/q 30 min VS ordered. mm11 23:42 IV Saline Lock ordered. mm11 23:42 Rhythm Strip to chart ordered. mm11 23:42 Undress patient appropriately for examination ordered. mm11 23:43 Chest, 2 View (pa\E\lat) Ordered. EDMS 23:43 Basic Metabolic Profile Ordered. EDMS 23:43 CBC with Diff Ordered. EDMS 23:43 Cardiac Injury Profile Ordered. EDMS 23:43 Troponin Ordered. EDHI 09/30 00:23 Financial registration complete. [facility] 00:42 [facility] Payment Agreement was scanned into [employer] and attached to record. [facility] 01:21 Basic Metabolic Profile Reviewed. 11 01:21 CBC with Diff Reviewed. mm11 01:21 Cardiac Injury Profile Reviewed. mm11 01:21 Troponin Reviewed. mm11 03:22 morphine 2 mg IVP once ordered. mm11 03:22 Ondansetron 4 mg IVP once ordered. mm11 04:10 Redraw CIP &Troponin (put time in details section) ordered. mm11 04:10 Repeat EKG (put time details section) ordered. mm11 04:13 Repeat EKG (put time details section) complete. kb5 04:13 Redraw CIP &Troponin (put time in details section) complete. kb5 04:14 CARDIAC INJURY PROFILE Ordered. EDMS 04:14 TROPONIN Ordered. EDMS 04:15 ELECTROCARDIOGRAM ADULT ordered. EDMS 06:42 CARDIAC INJURY PROFILE Reviewed. mm11 06:42 TROPONIN Reviewed. mm11 06:50 GI Cocktail - (Alum-Mag Hydroxide-Simeth 30 ml, Lidocaine 10 ml, Hyoscyamine 10 ml) PO mm11 once; Pre-mixed 50mL unit dose ordered. 15:02 T-Sheet-- Draft Copy was scanned into [employer] and attached to record. gb 15:02 ECG/EKG was scanned into [employer] and attached to record. gb Administered Medications: 00:05 Drug: Aspirin 243 mg [aspirin 81 mg chewable tablet (3 tabs)] Route: PO; kc3 00:06 Drug: Nitrostat 0.4 mg [Nitrostat 0.4 mg sublingual tablet (1 tabs)] Route: Sublingual; kc3 00:17 Drug: Nitrostat 0.4 mg [Nitrostat 0.4 mg sublingual tablet (1 tabs)] Route: Sublingual; kc3 00:24 Drug: Nitrostat 0.4 mg [Nitrostat 0.4 mg sublingual tablet (1 tabs)] Route: Sublingual; kc3 00:34 Follow up: BP 141 / 78; Pain 4/10 Adult kc3 00:35 Follow up: BP 130 / 80; Pain 3/10 Adult; Pt's second dose delayed r/t pt c/o headache kc3 and wanted to delay time of second dose. 00:36 Follow up: BP 131 / 65; Pain 2/10 Adult kc3 03:48 Drug: morphine 2 mg [morphine 2 mg/mL intravenous cartridge (1 mL)] Route: IVP; Site: js15 left antecubital; 03:48 Drug: Ondansetron 4 mg [ondansetron HCl 2 mg/mL intravenous solution (2 mL)] Route: js15 IVP; Site: left antecubital; 06:54 Drug: GI Cocktail - (Alum-Mag Hydroxide-Simeth Suspension 225 mg-200 mg-25 mg/5 mL 30 js15 ml, Lidocaine Liquid 2 % 10 ml, Hyoscyamine Liquid 10 ml) Route: PO; Signatures: Dispatcher [employer] EDErasto Fields RN RN Lanny Liu, Reg Reg Ranulfo Alejo, REMOTE PILOT OPERATOR REMOTE PILOT OPERATOR kb5 Cristóbal Rios DO DO mm11 Krista Shrestha RN RN ms18 Mesha Torres Julia RN js15 Simona Chatterjee RN kc3 The chart was reviewed and I authenticate all verbal orders and agree with the evaluation and treatment provided.Attachments: 00:42 [facility] Payment Agreement [facility] 15:02 T-Sheet-- Draft Copy gb 15:02 ECG/EKG gb Chart Complete MTDD
--- NOTE | 2016-10-02 09:01 | EDDOCDS ---
Physician Documentation [facility] Name: Janie Field Age: 61 yrs Sex: Female : 1955 Arrival Date: 09/29/2016 Time: 22:37 Bed 17 Private MD: Disposition: 09/30/16 07:17 Discharged to Home/Self Care. Impression: Chest pain, unspecified. - Condition is Stable. - Discharge Instructions: Nonspecific Chest Pain, Gastroesophageal Reflux Disease, Adult, Nonspecific Chest Pain, [id number]. - Medication Reconciliation, Local Pharmacy Hours form. - Follow up: Ashley Menard; When: As previously arranged; Reason: Continuance of care. - Problem is an acute exacerbation. - Symptoms have improved. Historical: - Allergies: Dilaudid; Toradol; statins; metals; osteoprosis meds; - Home Meds: 1. aspirin 81 mg Oral chew 1 tab once daily 2. Elmiron 100 mg oral cap 1 cap 3 times per day 3. Dexilant 60 mg oral CpDB 1 cap once daily 4. Effexor XR 150 mg Oral cp24 1 cap once daily 5. pregabalin 25 mg Oral cap 1 caps nightly 6. Zofran (as hydrochloride) 4 mg Oral tab as needed 7. Bactrim DS Oral as needed 8. Pyridium 100 mg Oral tab as needed 9. Restasis 0.05 % ophthalmic dpet twice a day 10. Naprosyn 250 mg Oral tab 2 tabs daily 11. Fexofenadine HCl Oral once daily - PMHx: [place]; Stroke; sepsis; Chron's Disease; Interstitial Cystitis; Fibromyalgia; GERD; Hypertension; - PSHx: Ileostomy Construction; Hysterectomy; Carpal Tunnel Repair- Right; Carpal Tunnel Repair- Left; Cataract Surgery- Bilateral; - Social history: Smoking status: Patient states former smoker of tobacco. No barriers to communication noted, The patient speaks fluent Tristanian. - Family history: Not pertinent. - : The pt / caregiver states he / she is not on anticoagulants. Home medication list is obtained from the patient. - Exposure Risk Screening:: None identified. Vital Signs: 09/29 22:39 BP 155 / 80; Pulse 74; Resp 18; Temp 97.3(O); Pulse Ox 99% on R/A; Weight 64.86 kg / tadeo 142.99 lbs (R); Height 5 ft. 5 in. (165.10 cm) (R); Pain 4/10; 09/30 00:01 BP 152 / 98 (auto/); js15 00:01 Pulse 52 MON; Pulse Ox 97% ; js15 00:16 BP 141 / 78 (auto/); js15 00:16 Pulse 52 MON; Pulse Ox 96% ; js15 00:31 BP 131 / 65 (auto/); js15 00:31 Pulse 50 MON; Pulse Ox 97% ; js15 00:34 BP 141 / 78; Pain 4/10; kc3 00:35 BP 130 / 80; Pain 3/10; kc3 00:36 BP 131 / 65; Pain 2/10; kc3 01:01 Pulse 48 MON; Pulse Ox 98% ; js15 01:01 BP 109 / 57 (auto/); js15 01:31 BP 103 / 56 (auto/); js15 01:31 Pulse 50 MON; Pulse Ox 97% ; js15 02:01 Pulse 48 MON; Pulse Ox 97% ; js15 02:01 BP 112 / 56 (auto/); js15 02:31 BP 114 / 55 (auto/); js15 02:32 Pulse 50 MON; Pulse Ox 97% ; js15 03:01 BP 99 / 54 (auto/); js15 03:02 Pulse 46 MON; Pulse Ox 97% ; js15 04:43 Pulse 58 MON; Pulse Ox 96% ; js15 04:43 BP 123 / 73 (auto/); js15 04:58 BP 122 / 76 (auto/); js15 04:59 Pulse 50 MON; Pulse Ox 94% ; js15 05:13 BP 124 / 73 (auto/); js15 05:13 Pulse 50 MON; Pulse Ox 96% ; js15 05:28 BP 116 / 75 (auto/); js15 05:29 Pulse 58 MON; Pulse Ox 95% ; js15 05:42 Pulse 50 MON; Pulse Ox 96% ; js15 05:43 BP 124 / 61 (auto/); js15 05:57 Pulse 48 MON; Pulse Ox 96% ; js15 05:58 BP 120 / 75 (auto/); js15 06:13 BP 127 / 71 (auto/); js15 06:13 Pulse 46 MON; Pulse Ox 95% ; js15 06:43 BP 131 / 79 (auto/); bcj 06:43 Pulse 46 MON; Pulse Ox 96% ; bcj 06:58 BP 136 / 74 (auto/); bcj 06:58 Pulse 44 MON; Pulse Ox 95% ; bcj 09/29 22:39 Body Mass Index 23.80 (64.86 kg, 165.10 cm) tadeo MDM: 09/29 22:45 ECG WITH READING ER PHYS+CARDIAG ordered. EDMS 23:42 Aspirin Chewable Tablet 243 mg PO once ordered. mm11 23:42 Nitrostat 0.4 mg Sublingual every 5 minutes; hold if SBP<90mmHg.Document Pain Score mm11 Response to Each Dose x3 ordered. 23:42 Geothermal Heat Pump Machinist/Pulse Ox/q 30 min VS ordered. mm11 23:42 IV Saline Lock ordered. mm11 23:42 Rhythm Strip to chart ordered. mm11 23:42 Undress patient appropriately for examination ordered. mm11 23:43 Chest, 2 View (pa\E\lat) Ordered. EDMS 23:43 Basic Metabolic Profile Ordered. EDMS 23:43 CBC with Diff Ordered. EDMS 23:43 Cardiac Injury Profile Ordered. EDMS 23:43 Troponin Ordered. EDKY 09/30 00:23 Financial registration complete. [facility] 00:42 [facility] Payment Agreement was scanned into [employer] and attached to record. [facility] 01:21 Basic Metabolic Profile Reviewed. 11 01:21 CBC with Diff Reviewed. mm11 01:21 Cardiac Injury Profile Reviewed. mm11 01:21 Troponin Reviewed. mm11 03:22 morphine 2 mg IVP once ordered. mm11 03:22 Ondansetron 4 mg IVP once ordered. mm11 04:10 Redraw CIP &Troponin (put time in details section) ordered. mm11 04:10 Repeat EKG (put time details section) ordered. mm11 04:13 Repeat EKG (put time details section) complete. kb5 04:13 Redraw CIP &Troponin (put time in details section) complete. kb5 04:14 CARDIAC INJURY PROFILE Ordered. EDMS 04:14 TROPONIN Ordered. EDMS 04:15 ELECTROCARDIOGRAM ADULT ordered. EDMS 06:42 CARDIAC INJURY PROFILE Reviewed. mm11 06:42 TROPONIN Reviewed. mm11 06:50 GI Cocktail - (Alum-Mag Hydroxide-Simeth 30 ml, Lidocaine 10 ml, Hyoscyamine 10 ml) PO mm11 once; Pre-mixed 50mL unit dose ordered. 15:02 T-Sheet-- Draft Copy was scanned into [employer] and attached to record. gb 15:02 ECG/EKG was scanned into [employer] and attached to record. gb Administered Medications: 00:05 Drug: Aspirin 243 mg [aspirin 81 mg chewable tablet (3 tabs)] Route: PO; kc3 00:06 Drug: Nitrostat 0.4 mg [Nitrostat 0.4 mg sublingual tablet (1 tabs)] Route: Sublingual; kc3 00:17 Drug: Nitrostat 0.4 mg [Nitrostat 0.4 mg sublingual tablet (1 tabs)] Route: Sublingual; kc3 00:24 Drug: Nitrostat 0.4 mg [Nitrostat 0.4 mg sublingual tablet (1 tabs)] Route: Sublingual; kc3 00:34 Follow up: BP 141 / 78; Pain 4/10 Adult kc3 00:35 Follow up: BP 130 / 80; Pain 3/10 Adult; Pt's second dose delayed r/t pt c/o headache kc3 and wanted to delay time of second dose. 00:36 Follow up: BP 131 / 65; Pain 2/10 Adult kc3 03:48 Drug: morphine 2 mg [morphine 2 mg/mL intravenous cartridge (1 mL)] Route: IVP; Site: js15 left antecubital; 03:48 Drug: Ondansetron 4 mg [ondansetron HCl 2 mg/mL intravenous solution (2 mL)] Route: js15 IVP; Site: left antecubital; 06:54 Drug: GI Cocktail - (Alum-Mag Hydroxide-Simeth Suspension 225 mg-200 mg-25 mg/5 mL 30 js15 ml, Lidocaine Liquid 2 % 10 ml, Hyoscyamine Liquid 10 ml) Route: PO; Signatures: Dispatcher [employer] EDErasto Fields RN RN Lanny Liu, Reg Reg Ranulfo Alejo, AUTOCLAVE OPERATOR AUTOCLAVE OPERATOR kb5 Cristóbal Rios DO DO mm11 Krista Shrestha RN RN ms18 Mesha Torres Julia RN js15 Simona Chatterjee RN kc3 The chart was reviewed and I authenticate all verbal orders and agree with the evaluation and treatment provided.Attachments: 00:42 [facility] Payment Agreement [facility] 15:02 T-Sheet-- Draft Copy gb 15:02 ECG/EKG gb Chart Complete MTDD
== END 2016-09-30 08:00 | disposition home or self-care (01) ==
LOC: M ED 22:37
DX: R07.9 Chest pain, unspecified (principal); R06.02 Shortness of breath; I10 Essential (primary) hypertension; I25.10 Atherosclerotic heart disease of native coronary artery without angina pectoris; I25.2 Old myocardial infarction; K21.9 Gastro-esophageal reflux disease without esophagitis; Z86.73 Personal history of transient ischemic attack (TIA), and cerebral infarction without residual deficits; K50.90 Crohn's disease, unspecified, without complications; M79.7 Fibromyalgia; Z79.899 Other long term (current) drug therapy; Z79.82 Long term (current) use of aspirin; Z79.1 Long term (current) use of non-steroidal anti-inflammatories (NSAID); Z88.5 Allergy status to narcotic agent; Z88.8 Allergy status to other drugs, medicaments and biological substances; Z91.09 Other allergy status, other than to drugs and biological substances
CPT/HCPCS: 36415; 71020; 80048; 82550; 82553; 85025; 93005; 93041; 96374; 96375; 99285; J2405

== ENCOUNTER → 2016-10-04 | Outpatient (REF) | payer BC ==
[2016-10-04 20:53] LABS: CALCIUM LEVEL 9.4 MG/DL (8.8-10.2); CREATININE FOR GFR 1.07 MG/DL (0.55-1.02); GLOMERULAR FILTRATION RATE 55.7 (>45); POTASSIUM SERUM 4.9 MEQ/L (3.5-5.1)
== END ==
LOC: M LABWUC 20:19
PROVIDERS: ATTEND Internal Medicine Cardiovascular Disease
DX: I25.10 Atherosclerotic heart disease of native coronary artery without angina pectoris (principal); I10 Essential (primary) hypertension; N28.9 Disorder of kidney and ureter, unspecified

== ENCOUNTER → 2016-10-09 | Outpatient (CLI) | payer BC ==
--- NOTE | 2016-10-09 14:41 | REPMRS ---
Patient History The patient states she had a clinical breast exam in 09/2016. Patient is postmenopausal and had first child at age 33. Benign US guided breast biopsy of the right breast, 2008. Taking estrogen for 11 years. Digital Woman Screen Mammo: October 09, 2016 - Exam #: [id number] Bilateral CC and MLO view(s) were taken. Technologist: Rossi Garza, Technologist Prior study comparison: September 28, 2015, bilateral digital mammo screening bilat, performed at [facility]. 2014, digital bilateral screening mammo, performed at [facility]. April 16, 2013, digital bilateral screening mammo, performed at [facility]. FINDINGS: There are scattered fibroglandular densities. There has been no change in the appearance of the mammogram from the prior studies. There is a needle biopsy marker clip in the right breast. There is a mild amount of scattered fibroglandular density which is fairly symmetric. There is no interval development of dominant mass, architectural distortion, or clustered microcalcification suggestive of malignancy. ASSESSMENT: BI-RADS/ACR category 2 mammogram. Benign finding(s). Recommendation Routine screening mammogram in 1 year (for women over age 40). This mammogram was interpreted with the aid of an FDA-approved computer-aided dectection system. Electronically Signed By: Naren Archer MD 10/09/16 [id number]
--- NOTE | 2016-10-11 08:11 | DEXA ---
AP SPINE L1 - L4 0.999 -1.6 -0.4 LT FEMUR TOTAL 0.743 -2.1 -1.2 RT FEMUR TOTAL 0.746 -2.1 -1.2 TOTAL BODY TOTAL OTHER DUAL FEMUR FRAX* ASSESSMENT Risk factors: None. 10 year probability of fracture Major osteoporotic fracture 12.2 % Hip fracture 2.5 % COMMENTS: There is low bone density of the spine. There is low bone density of the left hip. There is osteoporosis of the right hip. The density of the spine has increased 4.3% since 04/19/2014. The density of the left hip has decreased 3.5% since 04/19/2014. FOLLOW-UP: Recommendation for the next bone density exam: 2 years. GARRY
== END ==
LOC: M WHC 13:17
PROVIDERS: ATTEND Obstetrics & Gynecology
DX: M81.0 Age-related osteoporosis without current pathological fracture (principal); Z12.31 Encounter for screening mammogram for malignant neoplasm of breast
CPT/HCPCS: 77080; G0202

== ENCOUNTER → 2017-02-06 | Outpatient (CLI) | payer BC ==
--- NOTE | 2017-02-06 17:02 | REP ---
Lumbar spine series: Five views: History: Low back pain. Findings: An enterostomy device is visible projecting in the right lower quadrant. Lumbar vertebral body heights are preserved. Pedicles and posterior elements are intact. There is no evidence of spondylolysis or spondylolisthesis. Disc spaces are maintained. There is mild facet hypertrophy and joint space narrowing at L5-S1. Sacrum and SI joints are unremarkable. Impression: Mild osteoarthritic facet disease at L5-S1 bilaterally. Otherwise negative lumbar spine series.. Signed by Bradley Archer MD 02/07/2017 09:36 A
== END ==
LOC: M ADAMS 16:22
PROVIDERS: ATTEND Physician Assistant
DX: M54.5 Low back pain (principal)

== ENCOUNTER → 2017-04-02 | Outpatient (CLI) | payer BC ==
[~2017-04-02] MED LIST changes: -ACYC1CAP8 PO; +ACYC200C8 PO; -NAPR500T2 PO; +NAPR500T3 PO
--- NOTE | 2017-04-10 07:20 | SLEEPMSLT ---
DATE OF STUDY: 04/02/2017 REFERRING PHYSICIAN: Octavio Nazario MD INTERPRETATION: An overnight polysomnography was performed for evaluation of excessive daytime sleepiness and documentation of appropriate sleep time before multiple sleep latency test. A total of 8 hours and 11 minutes of data was reviewed with total sleep time 334.5 minutes and reduced sleep efficiency with prolonged sleep onset latency. EEG remained normal throughout. EKG revealed sinus bradycardia. Oxygen saturation remained 88% and above throughout the study. Moderate snoring was observed. There were no significant respiratory arousals, respiratory events or periodic limb movements of sleep during this study. CONCLUSION: Primary snoring, no polysomnographic evidence of obstructive sleep apnea or periodic limb movements of sleep. MULTIPLE SLEEP LATENCY TEST DATE OF STUDY: 04/03/2017 INTERPRETATION: After overnight polysomnography, a multiple sleep latency test was performed. The patient was given five nap opportunities. The patient achieved sleep in only 3 of the naps. Sleep onset latencies were 8.5, 16.5, 20, 4.5, 20 minutes. The mean sleep latency was 12.4 minutes. The patient achieved REM sleep in two of these naps. INTERPRETATION: Borderline multiple sleep latency test. Even though two sleep onset REM periods are suspicious for narcolepsy, mean sleep latency of 12.4 minutes, is less likely to be consistent with narcolepsy. Clinical correlation is recommended. MTDD
[2017-04-14 09:13] LABS: SUMMARY SEE SEPARATE REPORT
== END ==
LOC: M SLEEP 19:52
PROVIDERS: ATTEND Psychiatry & Neurology Neurology
DX: G47.10 Hypersomnia, unspecified (principal); G47.411 Narcolepsy with cataplexy

== ENCOUNTER → 2017-05-01 | Outpatient (REF) | payer BC | LOC: M LAB REF 13:56 | PROVIDERS: ATTEND Nurse Practitioner Family | DX: M79.643 Pain in unspecified hand (principal) ==

== ENCOUNTER → 2017-08-29 | Outpatient (REF) | payer BC ==
[2017-08-29 20:23] LABS: ERYTHROCYTE SEDIMENTATION RATE 30 mm/hr (0-30)
== END ==
LOC: M LABDRWAD 14:43
DX: M35.9 Systemic involvement of connective tissue, unspecified (principal)
CPT/HCPCS: 86140

== ENCOUNTER 2017-09-26 07:57 | Day surgery (SDC) | payer BC ==
[2017-09-26] MEDS: NS 1,000 ML IV (08:26)
[2017-09-26] MEDS ORDERED: fentaNYL 100 MCG/2 ML INJECTION (J3010) As Ordered (09:39)
[2017-09-26] MEDS ORDERED: LIDOCAINE 2% INJ 100 MG/5 ML SDV (FOR ANES.) As Ordered (09:40)
[2017-09-26] MEDS ORDERED: PROPOFOL 200 MG/20 ML VIAL As Ordered (09:40)
[2017-09-26] MEDS ORDERED: ONDANSETRON 4MG/2ML VIAL (J2405) As Ordered (09:48)
== END 2017-09-26 10:53 | disposition home or self-care (01) ==
LOC: M OPP 07:57
DX: R13.12 Dysphagia, oropharyngeal phase (principal); K31.89 Other diseases of stomach and duodenum; K29.70 Gastritis, unspecified, without bleeding; I10 Essential (primary) hypertension; I25.2 Old myocardial infarction; I25.10 Atherosclerotic heart disease of native coronary artery without angina pectoris; R07.89 Other chest pain; K50.90 Crohn's disease, unspecified, without complications; R12 Heartburn; K21.9 Gastro-esophageal reflux disease without esophagitis; Z86.718 Personal history of other venous thrombosis and embolism; Z87.19 Personal history of other diseases of the digestive system; Z87.01 Personal history of pneumonia (recurrent); R06.02 Shortness of breath; M19.90 Unspecified osteoarthritis, unspecified site; M79.7 Fibromyalgia; I63.9 Cerebral infarction, unspecified; Z78.0 Asymptomatic menopausal state; G47.8 Other sleep disorders; G47.419 Narcolepsy without cataplexy; N30.10 Interstitial cystitis (chronic) without hematuria; H40.9 Unspecified glaucoma; H35.30 Unspecified macular degeneration; Z88.0 Allergy status to penicillin; Z88.3 Allergy status to other anti-infective agents; Z88.8 Allergy status to other drugs, medicaments and biological substances; Z88.5 Allergy status to narcotic agent; Z91.048 Other nonmedicinal substance allergy status; Z79.82 Long term (current) use of aspirin; Z79.899 Other long term (current) drug therapy; Z79.52 Long term (current) use of systemic steroids
CPT/HCPCS: 43249

== ENCOUNTER → 2017-10-10 | Outpatient (CLI) | payer BC | LOC: M WHC 08:23 | DX: Z12.31 Encounter for screening mammogram for malignant neoplasm of breast (principal); Z78.0 Asymptomatic menopausal state; Z92.23 Personal history of estrogen therapy ==

== ENCOUNTER 2017-10-24 17:57 | Emergency (ER) | payer OTHER, BC ==
[2017-10-24] MEDS: traMADol 50 MG TAB PO (19:45)
== END 2017-10-24 21:45 | disposition home or self-care (01) ==
LOC: M ED 17:57
DX: S30.0XXA Contusion of lower back and pelvis, initial encounter (principal); W19.XXXA Unspecified fall, initial encounter; Y92.89 Other specified places as the place of occurrence of the external cause; M79.7 Fibromyalgia; K21.9 Gastro-esophageal reflux disease without esophagitis; M32.9 Systemic lupus erythematosus, unspecified; Z87.891 Personal history of nicotine dependence; Z88.8 Allergy status to other drugs, medicaments and biological substances; Z88.0 Allergy status to penicillin; Z88.5 Allergy status to narcotic agent; Z91.048 Other nonmedicinal substance allergy status; Z79.899 Other long term (current) drug therapy; Z79.82 Long term (current) use of aspirin; Z79.52 Long term (current) use of systemic steroids; Z79.2 Long term (current) use of antibiotics
CPT/HCPCS: 72110

== ENCOUNTER → 2017-10-28 | Outpatient (REF) | payer BC ==
[2017-10-28 20:52] LABS: C REACTIVE PROTEIN QUANTITATIV 0.45 MG/DL (0.00-0.30)
== END ==
LOC: M LAB REF 18:08
DX: M35.9 Systemic involvement of connective tissue, unspecified (principal)
CPT/HCPCS: 86140

== ENCOUNTER → 2018-01-30 | Outpatient (CLI) | payer BC ==
[~2018-01-30] MED LIST changes: -ACYC200C8 PO; -ALLE180T33 PO; -ASPI81TA85 PO; -BACTRIM PO; -ESTR25TD TD; -FLON1SPR; +GLUCAGON FOR INJ 1 MG VIAL (J1610) As Ordered; +ISOVUE-370 76% 100ML VIAL (Q9967) As Ordered; -LOPE2CA PO; -NAPR500T3 PO; -PANT40TA2 PO; -PENT10CA PO; -PEPT262T2 PO; -REST0.05 OU; -TRAM50TA2 PO; -VENL150C43 PO; +VoLumen 0.1% SUSPENSION 450ML BOTTLE As Ordered
== END ==
LOC: M RAD 14:47
DX: K50.90 Crohn's disease, unspecified, without complications (principal)

== ENCOUNTER → 2018-05-15 | Outpatient (REF) | payer BC ==
[2018-05-15 18:40] LABS: ANION GAP 9 MEQ/L (8-16); BLOOD UREA NITROGEN 19 MG/DL (7-18); CALCIUM LEVEL 8.8 MG/DL (8.8-10.2); CARBON DIOXIDE LEVEL 23 MEQ/L (21-32); CHLORIDE LEVEL 108 MEQ/L (98-107); CREATININE FOR GFR 1.03 MG/DL (0.55-1.30); GLOMERULAR FILTRATION RATE 57.8 (>45); GLUCOSE, FASTING 86 MG/DL (70-100); POTASSIUM SERUM 4.3 MEQ/L (3.5-5.1); SODIUM LEVEL 140 MEQ/L (136-145)
== END ==
LOC: M LABDRWAD 18:01
DX: R91.8 Other nonspecific abnormal finding of lung field (principal)
CPT/HCPCS: 80048

== ENCOUNTER → 2018-07-30 | Outpatient (CLI) | payer BC | LOC: M RAD 14:20 | DX: Z79.52 Long term (current) use of systemic steroids (principal); I51.7 Cardiomegaly | CPT/HCPCS: 71250 ==

== ENCOUNTER → 2018-08-05 | Outpatient (REF) | payer BC ==
[2018-08-05 19:11] LABS: ANION GAP 12 MEQ/L (8-16); BLOOD UREA NITROGEN 22 MG/DL (7-18); CALCIUM LEVEL 9.1 MG/DL (8.8-10.2); CARBON DIOXIDE LEVEL 26 MEQ/L (21-32); CHLORIDE LEVEL 103 MEQ/L (98-107); CREATININE FOR GFR 1.27 MG/DL (0.55-1.30); GLOMERULAR FILTRATION RATE 45.4 (>45); GLUCOSE, FASTING 95 MG/DL (70-100); POTASSIUM SERUM 4.6 MEQ/L (3.5-5.1); SODIUM LEVEL 141 MEQ/L (136-145)
== END ==
LOC: M LAB REF 17:15
DX: R91.8 Other nonspecific abnormal finding of lung field (principal)
CPT/HCPCS: 80048

== ENCOUNTER → 2018-12-01 | Outpatient (REF) | payer BC ==
[~2018-12-01] MED LIST changes: +ACYC200C8 PO; +ACYC5OIN EX; +ADDE1TAB14 PO; +ALLE180T33 PO; +ASPI81TA85 PO; +BACTRIM PO; +CALC500T21 PO; +CLEO300C2 PO; +DEXI60CA2 PO; +ESTR25TD TD; +FISH1CHW2 PO; +FISH500C PO; +FLON1SPR; -GLUCAGON FOR INJ 1 MG VIAL (J1610) As Ordered; -ISOVUE-370 76% 100ML VIAL (Q9967) As Ordered; +LOPE2CA PO; +LOSA25TA14 PO; +LYRI150C PO; +NAPR-885 PO; +PANT40TA3 PO; +PENT10CA PO; +PEPT262T2 PO; +PRED1TABL PO; +PROV100T25 PO; +RANI1TAB38 PO; +REST0.05 OU; +RETA0.5E OU; +TRAM1CAP15 PO; +TRAM50TA2 PO; +ULTR50TA8 PO; +VENL150C43 PO; +VENTAER IN; -VoLumen 0.1% SUSPENSION 450ML BOTTLE As Ordered; +ZOFR4TAB16 PO; +areds 2 PO
== END ==
LOC: M LAB REF 17:04
PROVIDERS: ATTEND Internal Medicine Pulmonary Disease
DX: R05 Cough (principal)

== ENCOUNTER → 2018-12-04 | Outpatient (CLI) | payer BC ==
--- NOTE | 2018-12-04 12:43 | REP ---
Chest x-ray: Two views. History: Acute bronchitis. Comparison study: November 11. Findings: The lungs are slightly hyperinflated as before but clear. Pleural angles are sharp. Heart is not enlarged. Pulmonary vasculature is not increased. No significant bony abnormality is seen. Impression: No active disease. Electronically Signed by Bradley Archer MD 12/04/2018 12:34 P
== END ==
LOC: M ADAMS 10:22
PROVIDERS: ATTEND Physician Assistant Medical
DX: Z87.09 Personal history of other diseases of the respiratory system (principal)

== ENCOUNTER → 2018-12-08 | Outpatient (CLI) | payer BC | LOC: M LAB 13:57 | PROVIDERS: ATTEND Internal Medicine Endocrinology, Diabetes & Metabolism | DX: M81.0 Age-related osteoporosis without current pathological fracture (principal) ==

== ENCOUNTER → 2019-01-07 | Outpatient (CLI) | payer BC ==
--- NOTE | 2019-01-08 04:07 | REP ---
Clinical: Dyspnea. Technique: Axial high-resolution inspiration and expiration noncontrast images from the thoracic inlet to the upper abdomen with coronal and sagittal re-formations. Comparison: 07/30/2018, 11/11/2017. Findings: Mild/moderate right middle lobe, lingular, and bibasilar fibroatelectatic changes are noted on both inspiration and expiration sequences. Current examination demonstrates a small focal area of opacity in the subpleural posterior right lower lobe (images 178 - 185) which may represent focal atelectasis. No further areas of acute consolidation, significant interstitial disease or air trapping/ground-glass opacities appreciated. Previously noted 6 mm round nodule in the deep left sulcus has essentially resolved. No effusion. No pneumothorax. Tracheobronchial tree is patent. No obvious adenopathy. The mediastinum demonstrates normal thoracic aorta and pulmonary vasculature. Atherosclerotic changes to the coronary arteries noted with mild cardiomegaly. No pericardial effusion. Musculoskeletal structures intact. Old healed left rib fractures noted. Impression: 1. Mild/moderate chronic appearing fibroatelectatic changes. 2. Previously noted 6 mm noncalcified density in the deep posterior left sulcus resolved. 3. Small area of opacity in the subpleural right lower lobe likely transient atelectasis. Consider follow-up examination in 3-6 months. Electronically Signed by Neal Swain MD 01/08/2019 04:00 A
== END ==
LOC: M RAD 13:56
PROVIDERS: ATTEND Internal Medicine Pulmonary Disease
DX: R06.00 Dyspnea, unspecified (principal); M36.8 Systemic disorders of connective tissue in other diseases classified elsewhere; R94.2 Abnormal results of pulmonary function studies

== ENCOUNTER → 2019-02-24 | Outpatient (REF) | payer BC ==
[2019-02-24 18:10] LABS: PERCENT SATURATION 6.2 % (13.2-45.0)
== END ==
LOC: M LAB REF 17:08
PROVIDERS: ATTEND Nurse Practitioner Adult Health
DX: D50.9 Iron deficiency anemia, unspecified (principal)

== ENCOUNTER 2019-03-11 09:58 | Outpatient (CLI) | payer BC ==
[~2019-03-11] VITALS: Ht 165.1 cm; Wt 69.0 kg
[2019-03-11 10:30] VITALS: BP 114/58
[2019-03-11] MEDS ORDERED: IRON SUCROSE 475 MG in NS 250 ML IV ONE (11:00)
[2019-03-11] MEDS ORDERED: IRON SUCROSE 25 MG in NS 50 ML IV ONE (11:00)
[2019-03-11 11:15] VITALS: BP 121/60
[2019-03-11 12:00] VITALS: BP 113/63
[2019-03-11 13:09] VITALS: BP 132/83
[2019-03-11 14:11] VITALS: BP 121/70
[2019-03-11 15:40] VITALS: BP 119/83
== END 2019-03-11 16:00 | disposition home or self-care (01) ==
LOC: M INFU 09:58
PROVIDERS: ATTEND Nurse Practitioner Adult Health
DX: D50.9 Iron deficiency anemia, unspecified (principal)
CPT/HCPCS: 96365; 96366; 96376; J1756

== ENCOUNTER → 2019-03-17 | Outpatient (REF) | payer BC ==
[2019-03-17 18:00] LABS: TOTAL PROTEIN,RANDOM URINE 42.2 MG/DL (0.0-12.0)
[2019-03-17 18:06] LABS: TOTAL PROTEIN 7.2 GM/DL (6.4-8.2)
[2019-03-23 11:43] LABS: ALBUMIN 4.41 GM/DL (3.29-5.55); ALBUMIN % 61.3 % (55.8-66.1); ALPHA-1-GLOBULIN % 6.9 % (2.9-4.9); ALPHA-2-GLOBULINS 1.03 GM/DL (0.42-0.99); ALPHA-2-GLOBULINS % 14.3 % (7.1-11.8); BETA-1-GLOBULINS 0.51 GM/DL (0.28-0.60); BETA-1-GLOBULINS % 7.1 % (4.7-7.2); BETA-2-GLOBULINS 0.34 GM/DL (0.19-0.55); BETA-2-GLOBULINS % 4.7 % (3.2-6.5); GAMMA GLOBULIN % 5.7 % (11.1-18.8); GAMMA GLOBULINS 0.41 GM/DL (0.65-1.58)
== END ==
LOC: M LAB REF 16:52
PROVIDERS: ATTEND Nurse Practitioner Adult Health
DX: S22.42XA Multiple fractures of ribs, left side, initial encounter for closed fracture (principal)

== ENCOUNTER → 2019-04-26 | Outpatient (CLI) | payer BC ==
[~2019-04-26] MED LIST changes: +CALC600T3 PO; +OLOP0.2S OP
--- NOTE | 2019-04-27 04:03 | REP ---
Clinical: Possible metastatic disease. Technique: Adult bone survey (14 total views). Findings: Generalized osteopenia is appreciated along with age-related degenerative changes. Lateral view of the thoracic spine demonstrates vertebra plan at T5 along with anterior wedge compression deformity at T6 with associated exaggerated kyphosis centered at the T5-6 level. These findings require further investigation but appear essentially nonacute. No lytic, blastic, or sclerotic lesions are appreciated to suggest osseous malignancy or metastatic disease by current radiographic evaluation. Rib fractures are suggested based on the AP view of the cervical spine and bilateral shoulders including displaced posterolateral right fifth and sixth rib fractures. Right superior and inferior pubic rami fractures along with left inferior pubic ramus fracture are identified on the AP views of the right and left hip respectively. Impression: 1. Rib fractures and pelvic fractures as noted above suggest both old and acute injuries requiring correlation and follow up. No prior examinations available for comparison. 2. Findings involving the T5 and T6 vertebral bodies as noted above appear relatively new when compared to chest x-ray dated 12/04/2018 and require correlation to exclude acute/subacute injuries. 3. Generalized age-related osteopenia and degenerative changes. No evidence for osseous malignancy or metastatic disease. Electronically Signed by Neal Swain MD 04/27/2019 03:54 A
== END ==
LOC: M ADAMS 08:25
PROVIDERS: ATTEND Internal Medicine
DX: D50.9 Iron deficiency anemia, unspecified (principal); M81.0 Age-related osteoporosis without current pathological fracture

== ENCOUNTER → 2019-04-26 | Outpatient (REF) | payer BC ==
[2019-04-26 13:28] LABS: BASO % 0.3 % (0.0-1.0); EOS # 0.1 10^3/uL (0.0-0.50); EOS % 0.8 % (0.0-3.0); HEMATOCRIT 39.6 % (36.0-47.0); HEMOGLOBIN 11.9 g/dl (12.0-15.5); LYMPH # 0.4 10^3/uL (1.5-4.5); LYMPH % 4.8 % (24.0-44.0); MEAN CORPUSCULAR HEMOGLOBIN 28.2 pg (27.0-33.0); MEAN CORPUSCULAR HGB CONC 30.1 g/dl (32.0-36.5); MEAN CORPUSCULAR VOLUME 93.8 fl (80.0-96.0); MONO # 0.7 10^3/uL (0.0-0.8); MONO % 7.9 % (0.0-5.0); NEUTROPHILS # 7.3 10^3/uL (1.8-7.7); NEUTROPHILS % 84.4 % (36.0-66.0); PLATELET COUNT, AUTOMATED 249 10^3/uL (150-450); RED BLOOD COUNT 4.22 10^6/uL (4.00-5.40); WHITE BLOOD COUNT 8.7 10^3/uL (4.0-10.0)
[2019-04-26 13:35] LABS: ALBUMIN 4.5 GM/DL (3.2-5.2); ALT/SGPT 53 U/L (12-78); BILIRUBIN,TOTAL 0.6 MG/DL (0.2-1.0); BLOOD UREA NITROGEN 21 MG/DL (7-18); CALCIUM LEVEL 9.4 MG/DL (8.8-10.2); CARBON DIOXIDE LEVEL 31 MEQ/L (21-32); CHLORIDE LEVEL 103 MEQ/L (98-107); CREATININE FOR GFR 0.97 MG/DL (0.55-1.30); FERRITIN 116 NG/ML (8-252); GLOMERULAR FILTRATION RATE > 60.0 (>45); GLUCOSE, FASTING 95 MG/DL (70-100); IRON (FE) 87 UG/DL (50-170); LDH LACTATE DEHYDROGENASE 703 U/L (84-246); SODIUM LEVEL 143 MEQ/L (136-145); TOTAL IRON BINDING CAPACITY 434 UG/DL (250-450); TOTAL PROTEIN 7.1 GM/DL (6.4-8.2)
[2019-04-27 13:46] LABS: ALBUMIN 4.53 GM/DL (3.29-5.55); ALBUMIN % 63.8 % (55.8-66.1); ALPHA-1-GLOBULIN % 5.7 % (2.9-4.9); ALPHA-2-GLOBULINS 0.93 GM/DL (0.42-0.99); ALPHA-2-GLOBULINS % 13.1 % (7.1-11.8); BETA-1-GLOBULINS 0.46 GM/DL (0.28-0.60); BETA-1-GLOBULINS % 6.5 % (4.7-7.2); BETA-2-GLOBULINS 0.34 GM/DL (0.19-0.55); BETA-2-GLOBULINS % 4.8 % (3.2-6.5); GAMMA GLOBULIN % 6.1 % (11.1-18.8); GAMMA GLOBULINS 0.43 GM/DL (0.65-1.58)
[2019-04-28 00:06] LABS: BETA 2 MICROGLOBULIN 1.6 mg/L (0.6-2.4); FREE LAMBDA LIGHT CHAINS SERUM 11.5 mg/L (5.7-26.3); KAPPA/LAMBDA RATIO SERUM 0.87 (0.26-1.65)
== END ==
LOC: M LAB REF 12:08 → M LABDRWAD 12:08
PROVIDERS: ATTEND Internal Medicine
DX: D50.9 Iron deficiency anemia, unspecified (principal)

== ENCOUNTER → 2019-04-29 | Outpatient (REF) | payer BC ==
[~2019-04-29] MED LIST changes: +BENL200I SC; +BIOT1CAP2 PO; +CELL500T PO; +D-101000 PO; +HM V5000 PO; +NO ITAB PO; +PLAQ200T4 PO; +TORS10TA3 PO; +TUMETAB PO
[2019-04-29 12:29] LABS: BASO % 0.3 % (0.0-1.0); EOS % 0.6 % (0.0-3.0); HEMOGLOBIN 12.7 g/dl (12.0-15.5); LYMPH # 0.4 10^3/uL (1.5-4.5); LYMPH % 6.2 % (24.0-44.0); MEAN CORPUSCULAR HEMOGLOBIN 28.9 pg (27.0-33.0); MEAN CORPUSCULAR VOLUME 93.2 fl (80.0-96.0); MONO # 0.5 10^3/uL (0.0-0.8); MONO % 7.9 % (0.0-5.0); NEUTROPHILS # 5.4 10^3/uL (1.8-7.7); NEUTROPHILS % 83.4 % (36.0-66.0); PLATELET COUNT, AUTOMATED 266 10^3/uL (150-450); WHITE BLOOD COUNT 6.4 10^3/uL (4.0-10.0)
== END ==
LOC: M LABDRWAD 12:01
PROVIDERS: ATTEND Internal Medicine
DX: D50.9 Iron deficiency anemia, unspecified (principal)

== ENCOUNTER → 2019-04-30 | Outpatient (REF) | payer BC ==
[2019-04-30 13:19] LABS: TOTAL VOLUME, URINE 1525 ML
[2019-04-30 13:26] LABS: APPEARANCE, URINE CLEAR (CLEAR); BACTERIA, URINE AUTO NEGATIVE (NEGATIVE); BILIRUBIN, URINE AUTO NEGATIVE (NEGATIVE); BLOOD, URINE BLOOD NEGATIVE (NEGATIVE); COLOR, URINE YELLOW (YELLOW); GLUCOSE, URINE (UA) AUTO NEGATIVE (NEGATIVE); KETONE, URINE AUTO NEGATIVE (NEGATIVE); LEUKOCYTE ESTERASE, URINE AUTO 2+ (NEGATIVE); MUCUS, URINE SMALL (NEGATIVE); NITRITE, URINE AUTO NEGATIVE (NEGATIVE); PROTEIN, URINE AUTO NEGATIVE (NEGATIVE); RBC, URINE AUTO 2 /HPF (0-3); SPECIFIC GRAVITY URINE AUTO 1.012 (1.002-1.035); SQUAMOUS EPITHELIAL CELL UR AU 1 /HPF (0-6); UROBILINOGEN, URINE AUTO 0.2 mg/dL (0.0-2.0); WBC, URINE AUTO 19 /HPF (0-3)
[2019-04-30 13:42] LABS: TOTAL PROTEIN 24 HOUR URINE 240.9 MG/24HR (50-150); TOTAL PROTEIN,RANDOM URINE 15.8 MG/DL (0.0-12.0); URINE TOTAL PROTEIN 15.8 MG/DL (0-12)
[2019-05-05 10:05] LABS: URINE VOLUME 1525 ML
[2019-05-05 10:10] LABS: URINE TOTAL PROTEIN 15.8 MG/DL (0-12)
[2019-05-06 15:02] LABS: UPEP INTERPRETATION NO M-SPIKE NOTED
== END ==
LOC: M LAB REF 12:01
PROVIDERS: ATTEND Internal Medicine
DX: D50.9 Iron deficiency anemia, unspecified (principal)

== ENCOUNTER 2019-05-07 12:59 | Day surgery (SDC) | payer BC ==
[~2019-05-07] VITALS: Ht 165.1 cm; Wt 74.8 kg
[~2019-05-07 12:59] MED LIST changes: +LIDOCAINE 2% INJ 100 MG/5 ML SDV (FOR ANES.) As Ordered ONE; +PROPOFOL 200 MG/20 ML VIAL As Ordered ONE
[2019-05-07] MEDS ORDERED: ONDANSETRON 4MG/2ML VIAL (J2405) As Ordered ONE (13:47)
[2019-05-07] MEDS ORDERED: NS 1,000 ML IV ONE (14:00)
--- NOTE | 2019-05-07 14:03 | ROOR ---
Patient Name: Janie Field Procedure Date: 05/07/2019 1:45 PM Date of : 1955 Age: 64 Room: [facility] Gender: Female Note Status: Finalized Procedure: Upper GI endoscopy Indications: Dysphagia, Odynophagia Providers: Chris CARLSON MD Referring MD: Aria Rosenberg NP Requesting Provider: Medicines: Monitored Anesthesia Care Complications: No immediate complications. Procedure: Pre-Anesthesia Assessment: - The heart rate, respiratory rate, oxygen saturations, blood pressure, adequacy of pulmonary ventilation, and response to care were monitored throughout the procedure. The Endoscope was introduced through the mouth, and advanced to the second part of duodenum. The upper GI endoscopy was accomplished without difficulty. The patient tolerated the procedure well. Findings: Mildly severe esophagitis was found in the mid esophagus. Biopsies were taken with a cold forceps for histology. The exam of the esophagus was otherwise normal. A small amount of food (residue) was found in the gastric body. The entire examined stomach was normal. The examined duodenum was normal. Impression: - Mildly severe esophagitis (two small areas of esophagitis in mid esophagus only). Biopsied. - Esophagus is otherwise normal. - Normal stomach. A small amount of food (residue) in the stomach, suggestive of delayed emptying/gastroparesis - Normal examined duodenum. Recommendation: - Await pathology results. Telephone endoscopist for pathology results in 2 weeks. - Use sucralfate suspension 1 gram PO QID for 2 weeks. (script sent to pharmacy) - Gastroparesis diet: - Eat smaller, more frequent meals throughout the day. - Low fat diet. - Liquid/soft foods are tolerated better than solid foods. - Low fiber/well cooked vegetables are tolerated better than high fiber/fibrous foods/raw vegetables. - Avoid medications that inhibit gastric/intestinal motility such as narcotic medications. Chris Carlson MD Chris CARLSON MD 05/07/2019 2:02:37 PM Electronically signed by Chris CARLSON MD Number of Addenda: 0 Note Initiated On: 05/07/2019 1:45 PM Estimated Blood Loss: Estimated blood loss: none.
[2019-05-07 14:25] VITALS: BP 160/92
== END 2019-05-07 14:37 | disposition home or self-care (01) ==
LOC: M OPP 12:59
PROVIDERS: ATTEND Internal Medicine Gastroenterology
DX: K20.9 Esophagitis, unspecified (principal); R13.10 Dysphagia, unspecified; Z79.82 Long term (current) use of aspirin; Z88.0 Allergy status to penicillin; Z88.8 Allergy status to other drugs, medicaments and biological substances; Z88.5 Allergy status to narcotic agent; Z91.048 Other nonmedicinal substance allergy status
CPT/HCPCS: 43239; 88305; J2405

== ENCOUNTER → 2019-06-21 | Outpatient (CLI) | payer BC ==
[~2019-06-21] MED LIST changes: -LIDOCAINE 2% INJ 100 MG/5 ML SDV (FOR ANES.) As Ordered ONE; -PROPOFOL 200 MG/20 ML VIAL As Ordered ONE
--- NOTE | 2019-06-21 20:05 | REP ---
Clinical: Dyspnea. Technique: Axial noncontrast images from the thoracic inlet to the upper abdomen with coronal and sagittal re-formations. Comparison: 01/07/2019. Findings: Diffuse scattered chronic fibroatelectatic changes are again appreciated and similar to prior examination. Superimposed scattered mild/moderate bibasilar atelectasis (right greater than left) currently identified. No focal consolidation, nodule or mass. No effusion. No pneumothorax. Tracheobronchial tree is patent. Mediastinum demonstrates stable appearance to the thoracic aorta, pulmonary vasculature and heart/pericardium. No pericardial effusion. Limited upper abdomen demonstrates normal bilateral adrenal glands. Impression: Bibasilar mild/moderate atelectasis. Electronically Signed by Neal Swain MD 06/21/2019 07:57 P
== END ==
LOC: M RAD 12:26
PROVIDERS: ATTEND Physician Assistant
DX: R06.00 Dyspnea, unspecified (principal); J98.11 Atelectasis

== ENCOUNTER → 2019-10-07 | Outpatient (REF) | payer BC ==
[2019-10-07 12:35] LABS: BASO % 0.9 % (0.0-1.0); EOS # 0.1 10^3/uL (0.0-0.5); EOS % 2.7 % (0.0-3.0); HEMATOCRIT 32.4 % (36.0-47.0); HEMOGLOBIN 9.4 g/dl (12.0-15.5); LYMPH # 0.3 10^3/uL (1.5-5.0); LYMPH % 12.9 % (24.0-44.0); MEAN CORPUSCULAR HEMOGLOBIN 29.9 pg (27.0-33.0); MEAN CORPUSCULAR VOLUME 103.2 fl (80.0-96.0); MONO # 0.4 10^3/uL (0.0-0.8); MONO % 18.3 % (0.0-5.0); NEUTROPHILS # 1.4 10^3/uL (1.5-8.5); NEUTROPHILS % 63.9 % (36.0-66.0); PLATELET COUNT, AUTOMATED 222 10^3/uL (150-450); RED BLOOD COUNT 3.14 10^6/uL (4.00-5.40); WHITE BLOOD COUNT 2.2 10^3/uL (4.0-10.0)
[2019-10-07 12:59] LABS: ALBUMIN 3.3 GM/DL (3.2-5.2); BILIRUBIN,TOTAL 0.4 MG/DL (0.2-1.0); CREATININE FOR GFR 1.91 MG/DL (0.55-1.30); GLOMERULAR FILTRATION RATE 28.3 (>45); POTASSIUM SERUM 4.3 MEQ/L (3.5-5.1); TOTAL PROTEIN 5.7 GM/DL (6.4-8.2)
== END ==
LOC: M SHH 11:40
PROVIDERS: ATTEND Internal Medicine
DX: B45.9 Cryptococcosis, unspecified (principal); Z79.2 Long term (current) use of antibiotics

== ENCOUNTER → 2019-10-11 | Outpatient (REF) | payer BC ==
[2019-10-11 14:33] LABS: BASO % 2.2 % (0.0-1.0); EOS % 2.2 % (0.0-3.0); HEMATOCRIT 32.2 % (36.0-47.0); HEMOGLOBIN 9.7 g/dl (12.0-15.5); LYMPH % 11.2 % (24.0-44.0); MEAN CORPUSCULAR HEMOGLOBIN 29.8 pg (27.0-33.0); MEAN CORPUSCULAR HGB CONC 30.1 g/dl (32.0-36.5); MEAN CORPUSCULAR VOLUME 99.1 fl (80.0-96.0); MONO # 0.5 10^3/uL (0.0-0.8); MONO % 33.6 % (0.0-5.0); NEUTROPHILS % 44.8 % (36.0-66.0); PLATELET COUNT, AUTOMATED 276 10^3/uL (150-450); RED BLOOD COUNT 3.25 10^6/uL (4.00-5.40)
[2019-10-11 14:51] LABS: ALBUMIN 3.6 GM/DL (3.2-5.2); BILIRUBIN,TOTAL 0.4 MG/DL (0.2-1.0); CALCIUM LEVEL 9.8 MG/DL (8.8-10.2); CREATININE FOR GFR 1.54 MG/DL (0.55-1.30); GLOMERULAR FILTRATION RATE 36.2 (>45); MAGNESIUM LEVEL 3.1 MG/DL (1.8-2.4); POTASSIUM SERUM 3.1 MEQ/L (3.5-5.1); TOTAL PROTEIN 6.4 GM/DL (6.4-8.2)
[2019-10-11 15:31] LABS: LYMPH # 0.2 10^3/uL (1.5-5.0); NEUTROPHILS # 0.6 10^3/uL (1.5-8.5); WHITE BLOOD COUNT 1.3 10^3/uL (4.0-10.0)
== END ==
LOC: M SHH 13:14
PROVIDERS: ATTEND Internal Medicine
DX: Z79.2 Long term (current) use of antibiotics (principal)

== ENCOUNTER 2019-10-16 08:46 | Inpatient (IN) | payer BC ==
[~2019-10-16] VITALS: Ht 165.1 cm; Wt 63.6 kg
[~2019-10-16 08:46] MED LIST changes: -ACYC5OIN EX; +ACYC5OIN TOP
[2019-10-16] MEDS ORDERED: [UNRECOGNIZED DRUG - CODE] PO (09:10)
[2019-10-16] MEDS ORDERED: PENT10CA PO (09:10)
[2019-10-16] MEDS ORDERED: AMLO10TA5 PO (09:10)
[2019-10-16] MEDS ORDERED: MEPR750S PO (09:10)
[2019-10-16] MEDS ORDERED: RITU10VLL IV (09:10)
[2019-10-16] MEDS ORDERED: POLYOPD OU (09:10)
[2019-10-16] MEDS ORDERED: DIFL200T PO (09:10)
[2019-10-16] MEDS ORDERED: LIDO1PAD TD (09:10)
[2019-10-16] MEDS ORDERED: TIZA4TAB4 PO (09:10)
[2019-10-16] MEDS ORDERED: FAMO1TAB25 PO (09:10)
[2019-10-16] MEDS ORDERED: VIMP100T PO (09:10)
[2019-10-16] MEDS ORDERED: TRAZ-252 PO (09:10)
[2019-10-16] MEDS ORDERED: NS 1,000 ML IV ONE (09:30)
[2019-10-16] MEDS ORDERED: PRED20TA PO (10:15)
[2019-10-16] MEDS ORDERED: TUMS750C22 PO (10:15)
[2019-10-16] MEDS ORDERED: FAMO1TAB11 PO (10:15)
[2019-10-16] MEDS ORDERED: CALCCHW4 PO (10:15)
[2019-10-16] MEDS ORDERED: TORS20TA2 PO (10:15)
[2019-10-16] MEDS ORDERED: ICAPCAP3 PO (10:15)
[2019-10-16] MEDS ORDERED: [UNRECOGNIZED DRUG - CODE] SL (10:15)
[2019-10-16 10:57] LABS: HEMATOCRIT 32.3 % (36.0-47.0); HEMOGLOBIN 9.9 g/dl (12.0-15.5); MEAN CORPUSCULAR HEMOGLOBIN 29.6 pg (27.0-33.0); MEAN CORPUSCULAR HGB CONC 30.7 g/dl (32.0-36.5); MEAN CORPUSCULAR VOLUME 96.7 fl (80.0-96.0); PLATELET COUNT, AUTOMATED 244 10^3/uL (150-450); RED BLOOD COUNT 3.34 10^6/uL (4.00-5.40); VENOUS BASE EXCESS -2.4 (-2.0-2.0); VENOUS HCO3 22.1 MEQ/L (23.0-27.0); VENOUS PARTIAL PRESSURE O2 93.2 mmHg (30.0-50.0); VENOUS PH 7.394 UNITS (7.330-7.430); VENOUS STANDARD HCO3 22.4 MEQ/L; VENOUS TOTAL CO2 23.2 MEQ/L (24.0-28.0); WHITE BLOOD COUNT 4.5 10^3/uL (4.0-10.0)
[2019-10-16 11:29] LABS: CALCIUM LEVEL 7.9 MG/DL (8.8-10.2); CREATININE FOR GFR 2.41 MG/DL (0.55-1.30); GLOMERULAR FILTRATION RATE 21.6 (>45); POTASSIUM SERUM 3.9 MEQ/L (3.5-5.1)
[2019-10-16 11:40] LABS: ANISOCYTOSIS 1+; EOSINOPHILS 3 % (0-3); LYMPHOCYTES 3 % (16-44); METAMYELOCYTES 2 % (0-0); MONOCYTES 10 % (0-5); MYELOCYTES 2 % (0-0); NEUTROPHILS 79 % (28-66); PLATELET ESTIMATE NORMAL (NORMAL)
[2019-10-16 11:41] LABS: POLYCHROMASIA 1+
[2019-10-16] MEDS ORDERED: traMADol 50 MG TAB PO PRN (13:00)
[2019-10-16] MEDS ORDERED: CALCIUM CARBONATE 500 MG CHEW U/D PO PRN (13:30)
[2019-10-16] MEDS: NS 1,000 ML IV SCH ×2 (13:31→21:05)
--- NOTE | 2019-10-16 14:48 | HPEPDOC ---
General Date of Admission Oct 16, 2019 at 12:51 Date of Service: Oct 16, 2019 Chief Complaint The patient is a 64-year-old female admitted with a reason for visit of Acute Kidney Injury Sle Exacerbation. Source: Patient, Family, RN/MD, Old records History of Present Illness 64 year old female with complicated PMH most significant for Crohns's disease treatment resistant needing total colectomy in [address], SLE with lupus nephritis and ckd 3, most recently had a severe Lupus flare in jul 2019 presenting with acute neuropyschiatric symptoms and signs and seizure precipitated by decreasing of immunosuppresants in june 2019 when she had a viral infection with echo virus and possible pneumonia. 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 Hospital Course was complicated by pancytopenia due to SLE worsened due to rapid tapering of steroids improved with increase in steroid dose, seizures, psychiatric manifestations. She was discharged to rehab on aug 31. She was doing weel in rehab when she developed skin ulcers in her legs whch came back as crytococcosis. She was readmitted to [facility] for disseminated crytococcosis and treated with amphotericin B. As per ID Dr Fan there was no UX RESEARCH ASSOCIATE or lung involvement. She was discharged home on 10/04/19 with PICC line to finish the course of amphotericin. Last dose was on 10/06/19 which was not completed as patient was called to stop the treatment due to worsening renal function ad hypokalemia from blood work done on 10/05/19. Patient was started on fluconazole, PICC line was taken out. Patient comes in to the ED today at the advice of Dr Fan whom they saw yesterday and blood work was done at his office. They were called yesterday night and instructed to come to ED as her creatinine had worsened and she need IVF. As per Dr Field patient has been very weak and tired since friday10/11/19, with decreasing oral intake, increased sleepiness, no interest in anything. It seemed that her depression has worsened. He had also noticed decreased urine output. Work up in the ED showed a creatinine of 2.4, lactate of 2.8, hb 9.9. She was admitted for JUSTO. Home Medications Scheduled Amlodipine Besylate (Amlodipine Besylate) 10 Mg Tablet, 10 MG PO DAILY, (Reported) Antiox.mv No.10/Omeg3s/Lut/Dixie (I-Caps with Lutein-Dike 3 Sfg) 1 Each Capsule, 2 CAP PO DAILY, (Reported) Aspirin (Aspir 81) 81 Mg Tab, 81 MG PO DAILY, (Reported) Atovaquone (Mepron) 750 Mg/5 Ml Oral.susp, 1,500 MG PO DAILY, (Reported) Biotin (Biotin) 1 Mg Capsule, 1 MG PO DAILY, (Reported) Calcium Carbonate/Vitamin D3 (Calcium 600 with Vit D Chew Tb) 1 Each Tab.chew, 1 CHW PO DAILY, (Reported) Cyanocobalamin (Vitamin B-12) (B-12) 500 Mcg Tab.rapdis, 500 MCG SL DAILY, (Reported) Famotidine (Famotidine) 20 Mg Tablet, 20 MG PO DAILY, (Reported) Fluconazole (Diflucan) 200 Mg Tablet, 400 MG PO DAILY, (Reported) Lacosamide (Vimpat) 100 Mg Tablet, 100 MG PO BID, (Reported) Multivitamin with Minerals (Multiple Vitamin) 1 Each Tablet, 1 TAB PO DAILY, (Reported) Dike-3/Dha/Epa/Fish Oil (Fish Oil Gummies) 1 Chw Chw, 2 CHW PO DAILY, (Reported) Pentosan Polysulfate Sodium (Elmiron) 100 Mg Capsule, 200 MG PO BID, (Reported) Prednisone (Prednisone) 20 Mg Tablet, 20 MG PO DAILY, (Reported) Rituximab (Rituxan) 10 Mg/1 Ml Vial, 100 MG IV ASDIRECTED, (Reported) Every 6 months Thiothixene (Thiothixene) 2 Mg Capsule, 2 MG PO TID, (Reported) Torsemide (Torsemide) 20 Mg Tablet, 10 MG PO DAILY, (Reported) Trazodone HCl (Trazodone HCl) 50 Mg Tablet, 50 MG PO QHS, (Reported) Scheduled PRN Acyclovir (Acyclovir) 5 % Oin, 1 APLCT TOP BID PRN for vulvar lesions, (Reported) Bismuth Subsalicylate (Pepto-Bismol) 262 Mg Tab, 262 MG PO for INDIGESTION, (Reported) Calcium Carbonate (Tums) 300 Mg Tab.chew, 750 MG PO DAILY PRN for INDIGESTION, (Reported) Lidocaine (Lidocaine) 5% Adh..patch, 1 PATCH TD DAILY PRN for PAIN, (Reported) On 12 hours, off 12 hours Ondansetron HCl (Zofran) 4 Mg Tab, 4 MG PO PRN PRN for NAUSEA, (Reported) Polyvinyl Alcohol (Artificial Tears) 15 Ml Drops, 1 DROP OU QID PRN for DRY EYES, (Reported) Tizanidine HCl (Tizanidine HCl) 4 Mg Tablet, 4 MG PO Q6H PRN for MUSCLE SPASMS, (Reported) Tramadol HCl (Tramadol HCl) 50 Mg Tab, 50 MG PO DAILY PRN for PAIN, (Reported) Allergies Coded Allergies: Echinacea (Verified Allergy, Intermediate, RASH, 05/06/19) amoxicillin (Verified Allergy, Intermediate, WHEEZING, 05/06/19) clavulanic acid (Verified Allergy, Intermediate, WHEEZING, 05/06/19) hydromorphone (Verified Allergy, Intermediate, HIVES, 05/06/19) methotrexate (Verified Allergy, Intermediate, PNEUMONIA, 05/06/19) METALS (Verified Allergy, Unknown, RASH, 09/18/17) SEASONAL ALLERGIES (Verified Allergy, Unknown, 09/18/17) infliximab (Verified Allergy, Unknown, SYSTEMIC LUPUS, 05/06/19) ketorolac (Verified Adverse Reaction, Intermediate, BURNING, 05/06/19) Bnbyftp-Mvm-Xvu Reductase Inhibitor (Verified Adverse Reaction, Mild, MUSCLE PAIN, 10/16/19) Uncoded Allergies: LYSINE (Allergy, Intermediate, RASH, 05/06/19) Past Medical History Medical History Inflammatory bowel disease--Crohn's disease from 1999 s/p colectomy now with ileostomy since 2007, SLE diagnosed in 2017, ? 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, Lupus nephritis, osteoporosis, pubic rami fractures ont he right in 2018, multiple rib fractures, Serositis from Lupus, Recent SLE flare in Jul 2019 in the form of UX RESEARCH ASSOCIATE lupus treated with methyl pred, plasmapharesis x 5 and rituximab x 4 doses from Jul to august2019 at [facility], disseminated cryptococcal infection with skin ulceration ( sparing of lungs and UX RESEARCH ASSOCIATE) in Sep 2019 treated with Amphotericin B last dose was on 10/06/19, developed complications --JUSTO and hypokalemia, depression, Seizures due to UX RESEARCH ASSOCIATE lupus started in jul 2019, h/o dysphagia s/p esophageal dilatation in 2019, esophageal ulcer in 2019 , esophagitis, Sjogren's disease, Blood clots, Herpes simplex 2, Best syndrome including macular degeneration, glaucoma Surgical History Hysterectomy. total colectomy due to intractable crohns disease Surgical insertion of feeding tube and removal of large intestine. Internal hernia around the stoma Bilateral carpal tunnel surgery. Bilateral cataract removal. Wrist and right thumb CMP joint removal Family History Patient was adapted at so does not know about any family history. Social History * Smoker: non-smoker Alcohol: Denies Drugs: denies A-FIB/CHADSVASC A-FIB History Current/History of A-Fib/PAF?: No Review of Systems Constitutional: Reports: Malaise, Weakness, Fatigue, Lethargy; Denies: Chills, Fever, Night Sweats Eyes: Denies: Pain, Vision change ENT: Denies: Head Aches, Ear Pain, Dysphagia Skin: Reports: Rash, Breakdown; Denies: Lesions Pulmonary: Denies: Dyspnea, Cough Cardiovascular: Denies: Chest Pain, Palpitations, Orthopnea, Paroxysmal Noc. Dyspnea, Lt Headedness Gastrointestinal: Denies: Nausea, Vomiting, Abdominal Pain, Diarrhea Genitourinary: Denies: Dysuria, Frequency, Incontinence, Retention Hematologic: Denies: Bruising, Bleeding Excessively Musculoskeletal: Reports: Neck Pain, Back Pain, Joint Pain, Muscle Pain Physical Examination General Exam: Positive: Cooperative, No Acute Distress, Other (somnolent but easily arousable) Eye Exam: Positive: PERRLA, Conjunctiva & lids normal, EOMI; Negative: Sclera icteric ENT Exam: Positive: Atraumatic, Mucous membr. moist/pink, Pharynx Normal Neck Exam: Positive: Supple; Negative: JVD, thyromegaly Chest Exam: Positive: Clear to auscultation, Normal air movement Heart Exam: Positive: Rate Normal, Regular Rhythm, Normal S1, Normal S2; Negative: Murmurs, Rubs Abdomen Exam: Positive: Normal bowel sounds, Soft, Other (stoma present); Negative: Tenderness, Hepatospenomegaly Extremity Exam: Negative: Clubbing, Cyanosis, Edema Skin Exam: Positive: Other skin issue (skin ulcers on amgdi inner aspect of left thigh, outer aspect of right thigh and left popliteal fossa) Psych Exam: Positive: Memory Intact, Oriented x 3 Vital Signs Vital Signs Date Time Temp Pulse Resp B/P (MAP) Pulse Ox O2 Delivery O2 Flow Rate FiO2 10/16/19 13:16 66 98 Room Air 10/16/19 13:15 105/63 (77) 10/16/19 11:45 16 10/16/19 08:46 96.9 Laboratory Data Labs 24H Laboratory Tests 2 10/16/19 10:45: Anion Gap 11, Glomerular Filtration Rate 21.6L, Calcium Level 7.9L 10/16/19 10:46: Immature Granulocyte % (Auto) , Lymphocytes # (Auto) , Nucleated Red Blood Cells % (auto) 2.0H, Neutrophils 79H, Band Neutrophils 1, Lymphocytes (Manual) 3L, M onocytes (Manual) 10H, Eosinophils (Manual) 3, Metamyelocytes 2H, Myelocytes 2H, Polychromasia 1+, Anisocytosis 1+, Macrocytosis 1+, Platelet Estimate NORMAL, Blood Gas Bicarbonate Standard 22.4, Venous Blood pH 7.394, Venous Blood Partial Pressure CO2 37.0L, Venous Blood Partial Pressure O2 93.2H, Venous Blood Total Carbon Dioxide 23.2L, Venous Blood HCO3 22.1L, Venous Blood Oxygen Saturation 97.0H, Venous Blood Base Excess -2.4L, Lactic Acid Level 2.8*H CBC/BMP Laboratory Tests 10/16/19 10:45 10/16/19 10:46 Assessment/Plan 64 year old female with complicated PMH most significant for Crohns's disease treatment resistant needing total colectomy in [address], SLE with lupus nephritis and ckd 3, most recently had a severe Lupus flare in jul 2019 presenting with acute neuropyschiatric symptoms and signs and seizure precipitated by decreasing of immunosuppresants in june 2019 when she had a viral infection with echo virus and possible pneumonia. 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 Hospital Course was complicated by pancytopenia due to SLE worsened due to rapid tapering of steroids improved with increase in steroid dose, seizures, psychiatric manifestations. She was discharged to rehab on aug 31. She was doing weel in rehab when she developed skin ulcers in her legs whch came back as cry tococcosis. She was readmitted to [facility] for disseminated crytococcosis and treated with amphotericin B. As per ID Dr Fan there was no UX RESEARCH ASSOCIATE or lung involvement. She was discharged home on 10/04/19 with PICC line to finish the course of amphotericin. Last dose was on 10/06/19 which was not completed as patient was called to stop the treatment due to worsening renal function ad hypokalemia from blood work done on 10/05/19. Patient was started on fluconazole, PICC line was taken out. Patient comes in to the ED today at the advice of Dr Fan whom they saw yesterday and blood work was done at his office. They were called yesterday night and instructed to come to ED as her creatinine had worsened and she need IVF. As per Dr Field patient has been very weak and tired since friday10/11/19, with decreasing oral intake, increased sleepiness, no interest in anything. It seemed that her depression has worsened. He had also noticed decreased urine output. Work up in the ED showed a creatinine of 2.4, lactate of 2.8, hb 99. She was admitted for JUSTO. JUSTO on CKD 3 due to nephrotoxicity from amphotericin and dehydration from poor oral intake. 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 will give NS. Check Mag and phos monitor K Lethargy and weakness due to dehydration, depression, medications will hold trazodone, tizanidine SLE continue home medications. prednisone, atovaquone also on rituximab every 6 months Cryptococca infection continue fluconazole daily dressing of skin ulcers. Seizures due to UX RESEARCH ASSOCIATE Lupus continue vimpat Code status: discussed with patient wants to be DNR/DNI. Plan / VTE VTE Prophylaxis Ordered?: Yes THA SANCHES MD Oct 16, 2019 14:47
[2019-10-16] MEDS: THIOTHIXENE 2 MG PO SCH (16:00)
[2019-10-16 16:03] LABS: ALBUMIN 3.3 GM/DL (3.2-5.2); BILIRUBIN,DIRECT 0.2 MG/DL (0.0-0.2); BILIRUBIN,TOTAL 0.3 MG/DL (0.2-1.0); MAGNESIUM LEVEL 2.2 MG/DL (1.8-2.4); PHOSPHORUS LEVEL 4.3 MG/DL (2.5-4.9); TOTAL PROTEIN 5.9 GM/DL (6.4-8.2)
[2019-10-16] MEDS ORDERED: diphenhydrAMINE 25 MG CAP PO PRN (20:15)
[2019-10-16] MEDS: traZODone 50 MG TAB PO SCH (20:57)
[2019-10-16] MEDS: LACOSAMIDE 50 MG TAB (VIMPAT) PO SCH (20:58)
[2019-10-16] MEDS: ACETAMINOPHEN TAB 650MG DOSE (2X325MG) PO PRN (20:58)
[2019-10-16] MEDS: PENTOSAN POLYSULFATE SODIUM 100 MG CAP (ELMIRON) PO SCH (20:58)
[2019-10-16] MEDS: HEPARIN SOD (PORCINE) 5000 UNITS/ML VIAL (J1644 PER 1000UNITS) SQ SCH (20:59)
[2019-10-16 22:00] VITALS: BP 108/66
--- NOTE | 2019-10-17 05:36 | ECGEPIP ---
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
[2019-10-17 06:00] VITALS: BP 102/58
[2019-10-17 06:17] LABS: HEMATOCRIT 29.7 % (36.0-47.0); MEAN CORPUSCULAR HEMOGLOBIN 29.7 pg (27.0-33.0); MEAN CORPUSCULAR HGB CONC 30.3 g/dl (32.0-36.5); PLATELET COUNT, AUTOMATED 193 10^3/uL (150-450); RED BLOOD COUNT 3.03 10^6/uL (4.00-5.40); WHITE BLOOD COUNT 3.3 10^3/uL (4.0-10.0)
[2019-10-17 06:47] LABS: CREATININE FOR GFR 1.43 MG/DL (0.55-1.30); GLOMERULAR FILTRATION RATE 39.5 (>45); MAGNESIUM LEVEL 2.1 MG/DL (1.8-2.4); POTASSIUM SERUM 2.8 MEQ/L (3.5-5.1)
[2019-10-17 06:58] LABS: EOSINOPHILS 1 % (0-3); LYMPHOCYTES 8 % (16-44); METAMYELOCYTES 2 % (0-0); MONOCYTES 10 % (0-5); NEUTROPHILS 78 % (28-66)
[2019-10-17 06:59] LABS: ANISOCYTOSIS 1+; PLATELET ESTIMATE NORMAL (NORMAL)
[2019-10-17] MEDS ORDERED: POTASSIUM CHLORIDE 10 MEQ SR TABLET PO ONE ×2 (07:00→10:00)
[2019-10-17] MEDS: ASPIRIN 81 MG ENTERIC TAB PO SCH (09:41)
[2019-10-17] MEDS: predniSONE 20 MG TAB PO SCH (09:42)
[2019-10-17] MEDS: LACOSAMIDE 50 MG TAB (VIMPAT) PO SCH ×2 (09:42→20:36)
[2019-10-17] MEDS: CALCIUM/VITAMIN D 500 MG TAB PO SCH (09:42)
[2019-10-17] MEDS: CYANOCOBALAMIN 500 MCG TAB PO SCH (09:42)
[2019-10-17] MEDS: MULTIVITAMINS/MINERALS THERAP 1 TAB PO SCH (09:42)
[2019-10-17] MEDS: FAMOTIDINE 20 MG TAB PO SCH (09:42)
[2019-10-17] MEDS: PENTOSAN POLYSULFATE SODIUM 100 MG CAP (ELMIRON) PO SCH ×2 (09:42→20:35)
[2019-10-17] MEDS: FLUCONAZOLE 100 MG TAB PO SCH (09:43)
[2019-10-17] MEDS: ATOVAQUONE SUSP 750MG/5ML 210 ML BTL PO SCH (09:44)
[2019-10-17] MEDS: HEPARIN SOD (PORCINE) 5000 UNITS/ML VIAL (J1644 PER 1000UNITS) SQ SCH ×2 (09:44→20:35)
[2019-10-17] MEDS: NS 1,000 ML IV SCH (09:44)
--- NOTE | 2019-10-17 10:02 | IPNPDOC ---
Text Note Date of Service The patient was seen on 10/17/19. NOTE Subjective: Patient laying down in bed. says feelig same as yesterday. Does not have any appetite and says she will try to eat something. No fever or chills, Less somnolent this morning. Physical Exam: Vitals:As below General Exam: Positive: Cooperative, No Acute Distress, Other (somnolent but easily arousable) Eye Exam: Positive: PERRLA, Conjunctiva & lids normal, EOMI; Negative: Sclera icteric ENT Exam: Positive: Atraumatic, Mucous membr. moist/pink, Pharynx Normal Neck Exam: Positive: Supple; Negative: JVD, thyromegaly Chest Exam: Positive: Clear to auscultation, Normal air movement Heart Exam: Positive: Rate Normal, Regular Rhythm, Normal S1, Normal S2; Negative: Murmurs, Rubs Abdomen Exam: Positive: Normal bowel sounds, Soft, Other (stoma present); Negative: Tenderness, Hepatospenomegaly Extremity Exam: Negative: Clubbing, Cyanosis, Edema Skin Exam: Positive: Other skin issue (skin ulcers on magdi inner aspect of left thigh, outer aspect of right thigh and left popliteal fossa) Psych Exam: Positive: Memory Intact, Oriented x 3 Labs and radiology: reviewed. 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 Hospital Course was complicated by pancytopenia due to SLE worsened due to rapid tapering of steroids improved with increase in steroid dose, seizures, psychi atric manifestations. She was discharged to rehab on aug 31. She was doing weel in rehab when she developed skin ulcers in her legs whch came back as crytococcosis. She was readmitted to [facility] for disseminated crytococcosis and treated with amphotericin B. As per ID Dr Fan there was no INSTRUMENT ENGINEER or lung involvement. She was discharged home on 10/04/19 with PICC line to finish the course of amphotericin. Last dose was on 10/06/19 which was not completed as patient was called to stop the treatment due to worsening renal function ad hypokalemia from blood work done on 10/05/19. Patient was started on fluconazole, PICC line was taken out. Patient comes in to the ED today at the advice of Dr Fan whom they saw yesterday and blood work was done at his office. They were called yesterday night and instructed to come to ED as her creatinine had worsened and she need IVF. As per Dr Field patient has been very weak and tired since friday10/11/19, with decreasing oral intake, increased sleepiness, no interest in anything. It seemed that her depression has worsened. He had also noticed decreased urine output. Work up in the ED showed a creatinine of 2.4, lactate of 2.8, hb 99. She was admitted for JUSTO. JUSTO on CKD 3 due to nephrotoxicity from amphotericin and dehydration from poor oral intake. 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 will give NS. Check Mag and phos monitor K hypokalemia replaced. Lethargy and weakness due to dehydration, depression, medications will hold trazodone, tizanidine more awake and responsive this am. SLE continue home medications. prednisone, atovaquone also on rituximab every 6 months Cryptococcus infection continue fluconazole daily dressing of skin ulcers. 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 VS,Diptie, I+O VS, Fishbone, I+O Laboratory Tests 10/16/19 10:45 10/16/19 10:46 10/17/19 05:55 Vital Signs Date Time Temp Pulse Resp B/P (MAP) Pulse Ox O2 Delivery O2 Flow Rate FiO2 10/17/19 06:00 98.2 75 17 102/58 (73) 92 Room Air I&O- Last 24 Hours up to 6 AM 10/17/19 06:00 Intake Total 2300 ml Balance 2300 ml THA SANCHES MD Oct 17, 2019 10:02
[2019-10-17 14:00] VITALS: BP 119/68
[2019-10-17] MEDS: [UNRECOGNIZED DRUG - OTHER] PO SCH (20:34)
[2019-10-17] MEDS: traZODone 50 MG TAB PO SCH (20:35)
[2019-10-17 22:00] VITALS: BP 130/75
[2019-10-17] MEDS: ACETAMINOPHEN TAB 650MG DOSE (2X325MG) PO PRN (22:43)
[2019-10-18 06:00] VITALS: BP 107/64
[2019-10-18 06:34] LABS: HEMATOCRIT 30.2 % (36.0-47.0); HEMOGLOBIN 9.2 g/dl (12.0-15.5); MEAN CORPUSCULAR HEMOGLOBIN 29.9 pg (27.0-33.0); MEAN CORPUSCULAR HGB CONC 30.5 g/dl (32.0-36.5); MEAN CORPUSCULAR VOLUME 98.1 fl (80.0-96.0); PLATELET COUNT, AUTOMATED 184 10^3/uL (150-450); RED BLOOD COUNT 3.08 10^6/uL (4.00-5.40); WHITE BLOOD COUNT 3.2 10^3/uL (4.0-10.0)
[2019-10-18 06:48] LABS: CALCIUM LEVEL 7.9 MG/DL (8.8-10.2); CREATININE FOR GFR 1.08 MG/DL (0.55-1.30); GLOMERULAR FILTRATION RATE 54.5 (>45); POTASSIUM SERUM 3.2 MEQ/L (3.5-5.1)
[2019-10-18 06:57] LABS: BASOPHILS 1 % (0-1); EOSINOPHILS 3 % (0-3); LYMPHOCYTES 10 % (16-44); MONOCYTES 3 % (0-5); NEUTROPHILS 83 % (28-66); PLATELET ESTIMATE NORMAL (NORMAL)
[2019-10-18] MEDS ORDERED: POTASSIUM CHLORIDE 10 MEQ SR TABLET PO ONE ×3 (08:00→11:00)
--- NOTE | 2019-10-18 09:54 | IPN ---
DATE OF SERVICE: 10/18/2019 This is an acute care note. I was asked by nursing staff to come and see the patient. She has a psychiatric history. She has a history of depression. Her depression has worsened this evening and tonight she was upset. She was stating to the nurse and then subsequently as well to myself that she was having numerous jumbled thoughts, she could not straighten them out, they were trying to tell her to harm herself, not anyone else. She did not exactly say how she would, she said it was too jumbled, but she was having numerous thoughts of harming herself. I discussed with Dr. Real, psychiatrist. Have placed a consultation and he will see the patient in the morning. We will put a sitter in place until that time. The patient is otherwise medically unchanged. We will continue all her other current medications and treatments.
[2019-10-18] MEDS: POTASSIUM CHLORIDE 10 MEQ SR TABLET PO SCH (09:59)
[2019-10-18] MEDS: CYANOCOBALAMIN 500 MCG TAB PO SCH (09:59)
[2019-10-18] MEDS: MULTIVITAMINS/MINERALS THERAP 1 TAB PO SCH (09:59)
[2019-10-18] MEDS: predniSONE 20 MG TAB PO SCH (09:59)
[2019-10-18] MEDS: ATOVAQUONE SUSP 750MG/5ML 210 ML BTL PO SCH (09:59)
[2019-10-18] MEDS: FAMOTIDINE 20 MG TAB PO SCH (09:59)
[2019-10-18] MEDS: PENTOSAN POLYSULFATE SODIUM 100 MG CAP (ELMIRON) PO SCH ×2 (09:59→20:19)
[2019-10-18] MEDS: CALCIUM/VITAMIN D 500 MG TAB PO SCH (09:59)
[2019-10-18] MEDS: ASPIRIN 81 MG ENTERIC TAB PO SCH (10:00)
[2019-10-18] MEDS: FLUCONAZOLE 100 MG TAB PO SCH (10:00)
[2019-10-18] MEDS: [UNRECOGNIZED DRUG - OTHER] PO SCH ×3 (10:00→20:19)
[2019-10-18] MEDS: LACOSAMIDE 50 MG TAB (VIMPAT) PO SCH ×2 (10:00→20:19)
[2019-10-18] MEDS: HEPARIN SOD (PORCINE) 5000 UNITS/ML VIAL (J1644 PER 1000UNITS) SQ SCH ×2 (10:01→20:20)
[2019-10-18] MEDS: ACETAMINOPHEN TAB 650MG DOSE (2X325MG) PO PRN (10:52)
--- NOTE | 2019-10-18 11:29 | MHCRPDOC ---
[facility] Consultation Consultation Consult Janie Patten MRN: N/A Date of : N/A Date of Service: 10/18/2019 Chief Complaint Consultation for safety. 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 During a moment of confusion she had reportedly stated that she had thoughts of self-harm where I was called in the middle of the evening. I had seen her the next day where she had made some improvement, and stated that she was unsure about the events that transpired. 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 He reports that she has become more depressed recently and has demonstrated some symptoms, although has no access to any means and that he has avoided having any opportunity for the patient to harm herself, although she has reportedly not made that prior to the reported event above. When I met the patient, she reported that she had had some depression, but reported that the situation is quite hard for her to deal with, that she spends a majority of time in hospitals. Review Of Systems Depression: As above. Anxiety: The patient denies any excessive worry associated with physical symptoms. They deny any experience of discreet panic in the past. Sirena: The patient denies any episodes of euphoria/dysphoria associated with decreased need for sleep, hedonism, talkatively or impulsivity lasting longer than 5 days. Psychotic: The patient denies any experiences of auditory or visual hallucinations. They deny any episodes of paranoia or delusional thinking in the past Trauma: The patient denies any traumatic events associated with nightmares or intrusive thoughts. Borderline: Not screened. Past Psychiatric History Has no history of admissions. Had been previously tried on some psychiatric medications for various problems with delirium. Will be following up with a lupus sales development specialist at [facility] later this week. Family Psychiatric History The patient denies/is unaware any history of mental health history including addictions and suicide. Social History Patient currently lives with her and is well supported. 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 She reported no legal problems. 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 Allergies See below Mental Status Examination General: Well dressed with good hygiene Speech: Slowed Thought processes: Linear MSK: Smooth and coordinated gait, no signs of tremors or involuntary orofacial movements Thought content: Some hopelessness Abstract reasoning, and computation: Intact Description of associations: Intact Description of abnormal or psychotic thoughts: Denies any suicidal or homicidal ideation. Denies any auditory or visual hallucinations. Does not appear to be responding to internal stimuli. Does not appear to be endorsing any bizarre or paranoid ideation. Judgment: fair Insight: fair Orientation: Alert and orientated 3 Cognition: Slowed mildly Recent and remote memory: Intact Attention span and concentration: Slowing Fund of knowledge: Adequate Mood: "fine" Affect: Flat with little reactivity Diagnoses Unspecified depressive disorder. MDD versus depression due to a medical condition versus hypoactive delirium. Assessment and Plan Unspecified depression: Discussed with family and patient that patient will need to be transferred to [facility] due to the subspecialty need for neurology as well as conflict of interest as her is a local psychiatric provider that has professional dealings with our unit on a voluntary stasis as the patient does not meet involentary criteria as she is not currently suicidal, although has depression. Disposition Will search for potential bed transfer. Time Spent 30 minutes. Friday Vital Signs Vital Signs Date Time Temp Pulse Resp B/P (MAP) Pulse Ox O2 Delivery O2 Flow Rate FiO2 10/18/19 06:00 97.1 71 20 107/64 (78) 91 Room Air Laboratory Data 24H Labs Laboratory Tests 2 10/18/19 06:02: Immature Granulocyte % (Auto) , Neutrophils (%) (Auto) , Nucleated Red Blood Cells % (auto) 2.5H, Neutrophils 83H, Lymphocytes (Manual) 10L, Monocytes (Manual) 3, Eosinophils (Manual) 3, Basophils (Manual) 1, Red Blood Cell Morphology NORMAL, Platelet Estimate NORMAL, Anion Gap 8, Glomerular Filtration Rate 54.5, Calcium Level 7.9L Home Medications Current Medications Current Medications Medications (Trade) Dose Ordered Sig/Jennifer Route PRN Reason Start Time Stop Time Status Last Admin Dose Admin Acetaminophen (Tylenol Tab) 650 mg Q6HP PRN PO PAIN / FEVER 10/16/19 20:15 10/18/19 10:52 Aspirin (Ecotrin) 81 mg DAILY PO 10/17/19 09:00 10/18/19 10:00 Atovaquone (Mepron 750mg/ 5ml Suspension) 1,500 mg DAILY PO 10/17/19 09:00 10/18/19 09:59 Calcium Carbonate (Tums) 1,000 mg Q4HP PRN PO HEARTBURN 10/16/19 13:30 Calcium/Vitamin D (Oscal D) 1 mg DAILY PO 10/17/19 09:00 10/18/19 09:59 Cyanocobalamin (Vitamin B12) 500 mcg DAILY PO 10/17/19 09:00 10/18/19 09:59 Diphenhydramine HCl (Benadryl) 25 mg QHSP PRN PO INSOMNIA 10/16/19 20:15 10/16/19 22:44 Famotidine (Pepcid) 20 mg DAILY PO 10/17/19 09:00 10/18/19 09:59 Fluconazole (Diflucan) 400 mg DAILY PO 10/17/19 09:00 10/18/19 10:00 Heparin Sodium (Porcine) (Heparin) 5,000 units BID SQ 10/16/19 21:00 10/18/19 10:01 Home Med (Med Rec Complete!) ASDIRECTED XX 10/16/19 10:30 10/16/19 10:17 DC Lacosamide (Vimpat) 100 mg BID PO 10/16/19 21:00 10/18/19 10:00 Miscellaneous (Unresolved Patient Own Med Order) SEE LABEL COMMENTS DAILY XX 10/16/19 09:00 10/17/19 18:31 DC Multivitamins (Theragram-M) 1 tab DAILY PO 10/17/19 09:00 10/18/19 09:59 Patient Own Medication (Patient'S Own Med) 1 CAP TID PO 10/17/19 21:00 10/18/19 10:00 Patient Own Medication (Patient'S Own Med) Thiothexene 2 mg tid. TID PO 10/16/19 16:00 10/17/19 19:50 DC Pentosan Polysulfate Sodium (Elmiron) 200 mg BID PO 10/16/19 21:00 10/18/19 09:59 Potassium Chloride (Micro-K Extencaps) 40 meq DAILY PO 10/18/19 09:00 10/18/19 09:59 Prednisone (Deltasone) 20 mg DAILY PO 10/17/19 09:00 10/18/19 09:59 Sodium Chloride 1,000 ml @ 75 mls/hr [id number] IV 10/16/19 13:00 10/17/19 21:18 DC 10/17/19 09:44 Tramadol HCl (Ultram) 50 mg DAILY PRN PO PAIN 10/16/19 13:00 10/16/19 22:45 Trazodone HCl (Desyrel) 50 mg QHS PO 10/16/19 21:00 10/17/19 20:35 Scheduled Antiox.mv No.10/Omeg3s/Lut/Dixie (I-Caps with Lutein-Selma 3 Sfg) 1 Each Capsule, 2 CAP PO DAILY, (Reported) Aspirin (Aspir 81) 81 Mg Tab, 81 MG PO DAILY, (Reported) Atovaquone (Mepron) 750 Mg/5 Ml Oral.susp, 1,500 MG PO DAILY, (Reported) Biotin (Biotin) 1 Mg Capsule, 1 MG PO DAILY, (Reported) Calcium Carbonate/Vitamin D3 (Calcium 600 with Vit D Chew Tb) 1 Each Tab.chew, 1 CHW PO DAILY, (Reported) Cyanocobalamin (Vitamin B-12) (B-12) 500 Mcg Tab.rapdis, 500 MCG SL DAILY, (Reported) Famotidine (Famotidine) 20 Mg Tablet, 20 MG PO DAILY, (Reported) Fluconazole (Diflucan) 200 Mg Tablet, 400 MG PO DAILY, (Reported) Lacosamide (Vimpat) 100 Mg Tablet, 100 MG PO BID, (Reported) Multivitamin with Minerals (Multiple Vitamin) 1 Each Tablet, 1 TAB PO DAILY, (Reported) Selma-3/Dha/Epa/Fish Oil (Fish Oil Gummies) 1 Chw Chw, 2 CHW PO DAILY, (Reported) Pentosan Polysulfate Sodium (Elmiron) 100 Mg Capsule, 200 MG PO BID, (Reported) Prednisone (Prednisone) 20 Mg Tablet, 20 MG PO DAILY, (Reported) Rituximab (Rituxan) 10 Mg/1 Ml Vial, 100 MG IV ASDIRECTED, (Reported) Every 6 months Thiothixene (Thiothixene) 2 Mg Capsule, 2 MG PO TID, (Reported) Trazodone HCl (Trazodone HCl) 50 Mg Tablet, 50 MG PO QHS, (Reported) Scheduled PRN Acyclovir (Acyclovir) 5 % Oin, 1 APLCT TOP BID PRN for vulvar lesions, (Reported) Bismuth Subsalicylate (Pepto-Bismol) 262 Mg Tab, 262 MG PO for INDIGESTION, (Reported) Calcium Carbonate (Tums) 300 Mg Tab.chew, 750 MG PO DAILY PRN for INDIGESTION, (Reported) Lidocaine (Lidocaine) 5% Adh..patch, 1 PATCH TD DAILY PRN for PAIN, (Reported) On 12 hours, off 12 hours Ondansetron HCl (Zofran) 4 Mg Tab, 4 MG PO PRN PRN for NAUSEA, (Reported) Polyvinyl Alcohol (Artificial Tears) 15 Ml Drops, 1 DROP OU QID PRN for DRY EYES, (Reported) Tizanidine HCl (Tizanidine HCl) 4 Mg Tablet, 4 MG PO Q6H PRN for MUSCLE SPASMS, (Reported) Tramadol HCl (Tramadol HCl) 50 Mg Tab, 50 MG PO DAILY PRN for PAIN, (Reported) Allergies Coded Allergies: Echinacea (Verified Allergy, Intermediate, RASH, 05/06/19) amoxicillin (Verified Allergy, Intermediate, WHEEZING, 05/06/19) clavulanic acid (Verified Allergy, Intermediate, WHEEZING, 05/06/19) hydromorphone (Verified Allergy, Intermediate, HIVES, 05/06/19) methotrexate (Verified Allergy, Intermediate, PNEUMONIA, 05/06/19) METALS (Verified Allergy, Unknown, RASH, 09/18/17) SEASONAL ALLERGIES (Verified Allergy, Unknown, 09/18/17) infliximab (Verified Allergy, Unknown, SYSTEMIC LUPUS, 05/06/19) ketorolac (Verified Adverse Reaction, Intermediate, BURNING, 05/06/19) Qpgeumf-Mkc-Kpo Reductase Inhibitor (Verified Adverse Reaction, Mild, MUSCLE PAIN, 10/16/19) Uncoded Allergies: LYSINE (Allergy, Intermediate, RASH, 05/06/19) KHALIDA SALINAS DO Oct 18, 2019 11:29
[2019-10-18 14:00] VITALS: BP 134/83
[2019-10-18] MEDS: traZODone 50 MG TAB PO SCH (20:19)
[2019-10-18 22:00] VITALS: BP 116/74
[2019-10-19 06:00] VITALS: BP 117/74
[2019-10-19 06:16] LABS: HEMATOCRIT 29.3 % (36.0-47.0); HEMOGLOBIN 8.9 g/dl (12.0-15.5); MEAN CORPUSCULAR HEMOGLOBIN 29.6 pg (27.0-33.0); MEAN CORPUSCULAR HGB CONC 30.4 g/dl (32.0-36.5); MEAN CORPUSCULAR VOLUME 97.3 fl (80.0-96.0); PLATELET COUNT, AUTOMATED 175 10^3/uL (150-450); RED BLOOD COUNT 3.01 10^6/uL (4.00-5.40); WHITE BLOOD COUNT 4.7 10^3/uL (4.0-10.0)
[2019-10-19 06:31] LABS: CALCIUM LEVEL 8.8 MG/DL (8.8-10.2); CREATININE FOR GFR 1.1 MG/DL (0.55-1.30); GLOMERULAR FILTRATION RATE 53.4 (>45); POTASSIUM SERUM 3.8 MEQ/L (3.5-5.1)
[2019-10-19 06:50] LABS: LYMPHOCYTES 8 % (16-44); METAMYELOCYTES 3 % (0-0); NEUTROPHILS 86 % (28-66); PLATELET ESTIMATE NORMAL (NORMAL)
[2019-10-19 06:51] LABS: ANISOCYTOSIS 1+; POLYCHROMASIA 1+
--- NOTE | 2019-10-19 06:59 | IPNPDOC ---
Text Note Date of Service The patient was seen on 10/18/19. NOTE Subjective: Patient laying down in bed. says feeling same as yesterday. Does not have any appetite and says she will try to eat something. No fever or chills, Less somnolent this morning. Overnight she had expressed suicidal ideas and said she is very depressed and with jumbled thoughts. Does not know what to think about. Has a sitter in the room . Psychiatry has been consulted. Physical Exam: Vitals:As below General Exam: Positive: Cooperative, No Acute Distress, Other (somnolent but easily arousable) Eye Exam: Positive: PERRLA, Conjunctiva & lids normal, EOMI; Negative: Sclera icteric ENT Exam: Positive: Atraumatic, Mucous membr. moist/pink, Pharynx Normal Neck Exam: Positive: Supple; Negative: JVD, thyromegaly Chest Exam: Positive: Clear to auscultation, Normal air movement Heart Exam: Positive: Rate Normal, Regular Rhythm, Normal S1, Normal S2; Negative: Murmurs, Rubs Abdomen Exam: Positive: Normal bowel sounds, Soft, Other (stoma present); Negative: Tenderness, Hepatospenomegaly Extremity Exam: Negative: Clubbing, Cyanosis, Edema Skin Exam: Positive: Other skin issue (skin ulcers on the inner aspect of left thigh, outer aspect of right thigh and left popliteal fossa) Psych Exam: Positive: Memory Intact, Oriented x 3 Labs and radiology: reviewed. 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 She was hospitalized in [facility] from Jul 2019 to aug 31 when she was treated for ADMITTING OFFICE ESCORT Lupus with high dose methyl pred, rituximab weekly x 4 doses, plasmapharesis x 5. Hospital Course was complicated by pancytopenia due to SLE worsened due to rapid tapering of steroids improved with increase in steroid dose, seizures, psychiatric manifestations. She was discharged to rehab on aug 31. She was doing weel in rehab when she developed skin ulcers in her legs whch came back as crytococcosis. 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 As per ID Dr Fan there was no ADMITTING OFFICE ESCORT or lung involvement. She was discharged home on 10/04/19 with PICC line to finish the course of amphotericin. Last dose was on 10/06/19 which was not completed as patient was called to stop the treatment due to worsening renal function ad hypokalemia from blood work done on 10/05/19. Patient was started on fluconazole, PICC line was taken out. Patient comes in to the ED today at the advice of Dr Fan whom they saw yesterday and blood work was done at his office. They were called yesterday night and instructed to come to ED as her creatinine had worsened and she need IVF. As per Dr Field patient has been very weak and tired since friday10/11/19, with decreasing oral intake, increased slee piness, no interest in anything. It seemed that her depression has worsened. He had also noticed decreased urine output. Work up in the ED showed a creatinine of 2.4, lactate of 2.8, hb 99. She was admitted for JUSTO. Depression with suicidal ideas seen by psychiatry advised inpatient transfer to [facility]. PFS and psychiatry to coordinate this transfer. JUSTO on CKD 3 due to nephrotoxicity from amphotericin and dehydration from poor oral intake. 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 resolved. hypokalemia replaced. Lethargy and weakness due to dehydration, depression, medications now resolved. restarted trazodone. SLE with recent flare in jul 2019 in magdi form of ADMITTING OFFICE ESCORT involvement with neuropsychiatric features and seizures. continue home medications. prednisone, atovaquone also on rituximab every 6 months Cryptococcus infection continue fluconazole daily dressing of skin ulcers. wound culture has been sent as thinks one of them may be secondarily infected. Seizures due to ADMITTING OFFICE ESCORT Lupus continue vimpat Code status: discussed with patient wants to be DNR/DNI. VS,Devontebone, I+O VS, Fishbone, I+O Laboratory Tests 10/19/19 05:32 Vital Signs Date Time Temp Pulse Resp B/P (MAP) Pulse Ox O2 Delivery O2 Flow Rate FiO2 10/18/19 22:00 98.1 75 18 116/74 (88) 91 Room Air I&O- Last 24 Hours up to 6 AM 10/19/19 06:00 Intake Total 1200 ml Output Total 575 ml Balance 625 ml THA SANCHES MD Oct 19, 2019 06:59
[2019-10-19] MEDS: predniSONE 20 MG TAB PO SCH (09:30)
[2019-10-19] MEDS: PENTOSAN POLYSULFATE SODIUM 100 MG CAP (ELMIRON) PO SCH ×2 (09:30→21:25)
[2019-10-19] MEDS: ASPIRIN 81 MG ENTERIC TAB PO SCH (09:30)
[2019-10-19] MEDS: FLUCONAZOLE 100 MG TAB PO SCH (09:30)
[2019-10-19] MEDS: POTASSIUM CHLORIDE 10 MEQ SR TABLET PO SCH (09:31)
[2019-10-19] MEDS: ATOVAQUONE SUSP 750MG/5ML 210 ML BTL PO SCH (09:31)
[2019-10-19] MEDS: [UNRECOGNIZED DRUG - OTHER] PO SCH ×3 (09:32→21:24)
[2019-10-19] MEDS: CALCIUM/VITAMIN D 500 MG TAB PO SCH (09:32)
[2019-10-19] MEDS: MULTIVITAMINS/MINERALS THERAP 1 TAB PO SCH (09:33)
[2019-10-19] MEDS: CYANOCOBALAMIN 500 MCG TAB PO SCH (09:33)
[2019-10-19] MEDS: FAMOTIDINE 20 MG TAB PO SCH (09:33)
[2019-10-19] MEDS: HEPARIN SOD (PORCINE) 5000 UNITS/ML VIAL (J1644 PER 1000UNITS) SQ SCH ×2 (09:33→21:24)
[2019-10-19] MEDS: LACOSAMIDE 50 MG TAB (VIMPAT) PO SCH ×2 (09:33→21:25)
[2019-10-19] MEDS: ACETAMINOPHEN TAB 650MG DOSE (2X325MG) PO PRN (10:09)
--- NOTE | 2019-10-19 11:37 | IPNPDOC ---
Subjective Date Seen The patient was seen on 10/19/19. Subjective Chief Complaint/HPI Seen and examined, at bedside. Awake and alert, speaking coherently, discussing possibility of transfer to psych facility and how its making her feel anxious. General: Reports: Normal Appetite; Denies: Chills, Night Sweats, Fatigue, Malaise Constitutional: Denies: Chills, Fever, Night Sweats Eyes: Denies: Pain, Vision change ENT: Denies: Head Aches, Ear Pain, Dysphagia Skin: Denies: Rash, Lesions, Breakdown Pulmonary: Denies: Dyspnea, Cough Cardiovascular: Denies: Chest Pain, Palpitations, Orthopnea, Paroxysmal Noc. Dyspnea, Lt Headedness Gastrointestinal: Denies: Nausea, Vomiting, Abdominal Pain, Diarrhea, Constipation Genitourinary: Denies: Dysuria, Frequency, Incontinence, Retention Hematologic: Denies: Bruising, Bleeding Excessively Musculoskeletal: Denies: Neck Pain, Back Pain, Joint Pain, Muscle Pain, Spasms Neurological: Denies: Weakness, Numbness, Change in speech, Confusion Psych: Reports: Mood Normal; Denies: Depression, Memory Issues Objective Physical Examination General Exam: Positive: Cooperative, No Acute Distress, Other (somnolent but easily arousable) Eye Exam: Positive: PERRLA, Conjunctiva & lids normal, EOMI; Negative: Sclera icteric ENT Exam: Positive: Atraumatic, Mucous membr. moist/pink, Pharynx Normal Neck Exam: Positive: Supple; Negative: JVD, thyromegaly Chest Exam: Positive: Clear to auscultation, Normal air movement Heart Exam: Positive: Rate Normal, Regular Rhythm, Normal S1, Normal S2; Negative: Murmurs, Rubs Telemetry: Positive: No significant arrhythmia Abdomen Exam: Positive: Normal bowel sounds, Soft, Other (stoma present); Negative: Tenderness, Hepatospenomegaly Female Exam: Positive: Nl Ext Genitalia; Negative: Lesions, Discharge, Odor, Tenderness Extremity Exam: Negative: Clubbing, Cyanosis, Edema Skin Exam: Positive: Other skin issue (skin ulcers on magdi inner aspect of left thigh, outer aspect of right thigh and left popliteal fossa) Neuro Exam: Positive: Normal Gait, Normal Speech, Cranial Nerves 3-12 NL, Reflexes 2+ Psych Exam: Positive: Memory Intact, Oriented x 3 Assessment /Plan Assessment 1. depression with suicidal thoughts - psychiatry following, recommending transfer to inpatient psychiatry at [facility], voluntary admission. - 1:1 sitter. 2. JUSTO on CKD (seconadry to lupus nephritis) - resolved. - secondary to nephrotoxicity from amphotericin and poor oral intake. - encouraged to continue with PO liquids. 3. SLE - continue prednisone, atovaquone. - rituximab every 6 months. 4. cryptococcus infection - continue fluconazole. - daily dressing changes. - superficial ulcer noted on inner aspect of R thigh, wound cultures sent, consult to wound care nurse. 5. seizures - continue vimpat. Code status: discussed with patient wants to be DNR/DNI. Plan/VTE VTE Prophylaxis Ordered?: Yes VS, I&O, 24H, Fishbone Vital Signs/I&O Vital Signs Date Time Temp Pulse Resp B/P (MAP) Pulse Ox O2 Delivery O2 Flow Rate FiO2 10/19/19 06:00 98.2 78 20 117/74 (88) 99 Room Air I&O- Last 24 Hours up to 6 AM 10/19/19 06:00 Intake Total 1350 ml Output Total 575 ml Balance 775 ml Laboratory Data 24H LABS Laboratory Tests 2 10/19/19 05:32: Immature Granulocyte % (Auto) , Neutrophils (%) (Auto) , Nucleated Red Blood Cells % (auto) 1.7H, Neutrophils 86H, Band Neutrophils 3, Lymphocytes (Manual) 8L, Metamyelocytes 3H, Polychromasia 1+, Anisocytosis 1+, Platelet Estimate NORMAL, Anion Gap 7L, Glomerular Filtration Rate 53.4, Calcium Level 8.8 CBC/BMP Laboratory Tests 10/19/19 05:32 Microbiology Microbiology 10/18/19 Gram Stain - Final, Resulted 10/18/19 Wound Culture, Resulted Pending DEMETRIO TAYLOR MD Oct 19, 2019 11:37
[2019-10-19 14:00] VITALS: BP 113/73
--- NOTE | 2019-10-19 16:19 | MHIPNPDOC ---
[facility] Progress Note Progress Note Inpatient Progress Note Janie Patten MRN: N/A Date of : N/A Date of Service: 10/19/2019 History of Present Illness The patient, a 64-year-old woman with an extensive history of COLOR STRAINER lupus, is brought in for dehydration where she is treated. During a moment of confusion she had reportedly stated that she had thoughts of self-harm where I was called in the middle of the evening. I had seen her the next day where she had made some improvement, and stated that she was unsure about the events that transpired. The patient's is a local psychiatric provider of which he prevents collateral information, supporting that the patient has no significant history of depression or psychiatric problems prior to her COLOR STRAINER lupus. He reports that she has become more depressed recently and has demonstrated some symptoms, although has no access to any means and that he has avoided having any opportunity for the patient to harm herself, although she has reportedly not made that prior to the reported event above. When I met the patient, she reported that she had had some depression, but reported that the situation is quite hard for her to deal with, that she spends a majority of time in hospitals. Interval History Patient met with today. She reports she is doing much better after being rehydrated. reports that she has returned to near normal mental status. She, due to needing enhanced rehab, is ineligible for [facility]. The elementary school social worker talked about [place], however the patient and are uninterested in the long drive. They have an appointment on Friday with Dr. Fair who is a world specialist in psychiatric phenomenon in lupus, and they report that they would rather go to her for treatment as the patient is not interested in inpatient , her engages in safety planning, reports that she has no access and she is uninterested in psych. Review Of Systems Reports improved depression, more ability to focus since rehydrated. Psychotherapy None on this visit. Vital Signs Reviewed. Mental Status Examination General: Well dressed with good hygiene Speech: Slowed Thought processes: Linear MSK: Smooth and coordinated gait, no signs of tremors or involuntary orofacial movements Thought content: Some hopelessness Abstract reasoning, and computation: Intact Description of associations: Intact Description of abnormal or psychotic thoughts: Denies any suicidal or homicidal ideation. Denies any auditory or visual hallucinations. Does not appear to be responding to internal stimuli. Does not appear to be endorsing any bizarre or paranoid ideation. Judgment: fair Insight: fair Orientation: Alert and orientated 3 Cognition: Improved Recent and remote memory: Intact Attention span and concentration: Improved Fund of knowledge: Adequate Mood: "fine" Affect: Euthymic Diagnoses Hypoactive delirium. Assessment and Plan The patient at this time appears to have made some improvements after being rehydrated, likely she has an hypoactive delirium secondary to her dehydration. She has improved well with less slowing. She has been restarted on medication. She has been on outpatient and reports having an appointment with a specialist in her condition on Friday. The patient at the time of discharge did not meet criteria for involuntary admission/extension due to having a normal mental status exam, fair insight into the situation, They are engaged in the discharge process, as well as being friendly and amenable in behavioral control and havent been engaging in any observed concerning behavior or ideation recently. They decline voluntary extension/admission at this time and must be discharged in good kareen, as Im unable to make a case for holding the patient against their will. They may have historical risk factors of admissions and other interactions with psychiatry however, those are not modifiable from a clinical perspective. The patient will need to be discharged in good kareen. Disposition No need for psychiatric care at this time. Psychiatry will sign off for now. Time Spent 30 minutes. Friday Vital Signs Vital Signs Date Time Temp Pulse Resp B/P (MAP) Pulse Ox O2 Delivery O2 Flow Rate FiO2 10/19/19 14:00 98.0 85 20 113/73 (86) 92 Room Air Laboratory Data 24H Labs Laboratory Tests 2 10/19/19 05:32: Immature Granulocyte % (Auto) , Neutrophils (%) (Auto) , Nucleated Red Blood Cells % (auto) 1.7H, Neutrophils 86H, Band Neutrophils 3, Lymphocytes (Manual) 8L, Metamyelocytes 3H, Polychromasia 1+, Anisocytosis 1+, Platelet Estimate NORMAL, Anion Gap 7L, Glomerular Filtration Rate 53.4, Calcium Level 8.8 CBC/BMP Laboratory Tests 10/19/19 05:32 Current Medications Current Medications Medications (Trade) Dose Ordered Sig/Jennifer Route PRN Reason Start Time Stop Time Status Last Admin Dose Admin Acetaminophen (Tylenol Tab) 650 mg Q6HP PRN PO PAIN / FEVER 10/16/19 20:15 10/19/19 10:09 Aspirin (Ecotrin) 81 mg DAILY PO 2/16/20 09:00 10/19/19 09:30 Atovaquone (Mepron 750mg/ 5ml Suspension) 1,500 mg DAILY PO 10/17/19 09:00 10/19/19 09:31 Calcium Carbonate (Tums) 1,000 mg Q4HP PRN PO HEARTBURN 10/16/19 13:30 Calcium/Vitamin D (Oscal D) 1 mg DAILY PO 10/17/19 09:00 10/19/19 09:32 Cyanocobalamin (Vitamin B12) 500 mcg DAILY PO 10/17/19 09:00 10/19/19 09:33 Diphenhydramine HCl (Benadryl) 25 mg QHSP PRN PO INSOMNIA 10/16/19 20:15 10/16/19 22:44 Famotidine (Pepcid) 20 mg DAILY PO 10/17/19 09:00 10/19/19 09:33 Fluconazole (Diflucan) 400 mg DAILY PO 10/17/19 09:00 10/19/19 09:30 Heparin Sodium (Porcine) (Heparin) 5,000 units BID SQ 10/16/19 21:00 10/19/19 09:33 Home Med (Med Rec Complete!) ASDIRECTED XX 10/16/19 10:30 10/16/19 10:17 DC Lacosamide (Vimpat) 100 mg BID PO 10/16/19 21:00 10/19/19 09:33 Miscellaneous (Unresolved Patient Own Med Order) SEE LABEL COMMENTS DAILY XX 10/16/19 09:00 10/17/19 18:31 DC Multivitamins (Theragram-M) 1 tab DAILY PO 10/17/19 09:00 10/19/19 09:33 Patient Own Medication (Patient'S Own Med) 1 CAP TID PO 10/17/19 21:00 10/19/19 09:32 Patient Own Medication (Patient'S Own Med) Thiothexene 2 mg tid. TID PO 10/16/19 16:00 10/17/19 19:50 DC Pentosan Polysulfate Sodium (Elmiron) 200 mg BID PO 10/16/19 21:00 10/19/19 09:30 Potassium Chloride (Micro-K Extencaps) 40 meq DAILY PO 10/18/19 09:00 10/19/19 09:31 Prednisone (Deltasone) 20 mg DAILY PO 10/17/19 09:00 10/19/19 09:30 Sodium Chloride 1,000 ml @ 75 mls/hr [id number] IV 10/16/19 13:00 10/17/19 21:18 DC 10/17/19 09:44 Tramadol HCl (Ultram) 50 mg DAILY PRN PO PAIN 10/16/19 13:00 10/16/19 22:45 Trazodone HCl (Desyrel) 50 mg QHS PO 10/16/19 21:00 10/18/19 20:19 Allergies Coded Allergies: Echinacea (Verified Allergy, Intermediate, RASH, 05/06/19) amoxicillin (Verified Allergy, Intermediate, WHEEZING, 05/06/19) clavulanic acid (Verified Allergy, Intermediate, WHEEZING, 05/06/19) hydromorphone (Verified Allergy, Intermediate, HIVES, 05/06/19) methotrexate (Verified Allergy, Intermediate, PNEUMONIA, 05/06/19) METALS (Verified Allergy, Unknown, RASH, 09/18/17) SEASONAL ALLERGIES (Verified Allergy, Unknown, 09/18/17) infliximab (Verified Allergy, Unknown, SYSTEMIC LUPUS, 05/06/19) ketorolac (Verified Adverse Reaction, Intermediate, BURNING, 05/06/19) Grjkecb-Vke-Cvl Reductase Inhibitor (Verified Adverse Reaction, Mild, MUSCLE PAIN, 10/16/19) Uncoded Allergies: LYSINE (Allergy, Intermediate, RASH, 05/06/19) KHALIDA SALINAS DO Oct 19, 2019 16:19
[2019-10-19] MEDS: traZODone 50 MG TAB PO SCH (21:25)
[2019-10-19 22:00] VITALS: BP 112/72
[2019-10-20 06:00] VITALS: BP 118/68
[2019-10-20 06:28] LABS: BASO % 0.2 % (0.0-1.0); EOS # 0.1 10^3/uL (0.0-0.5); EOS % 1.2 % (0.0-3.0); HEMATOCRIT 32.2 % (36.0-47.0); LYMPH # 0.3 10^3/uL (1.5-5.0); LYMPH % 7.9 % (24.0-44.0); MEAN CORPUSCULAR HEMOGLOBIN 29.9 pg (27.0-33.0); MEAN CORPUSCULAR HGB CONC 31.1 g/dl (32.0-36.5); MEAN CORPUSCULAR VOLUME 96.1 fl (80.0-96.0); MONO # 0.4 10^3/uL (0.0-0.8); MONO % 8.9 % (0.0-5.0); NEUTROPHILS # 3.3 10^3/uL (1.5-8.5); NEUTROPHILS % 77.4 % (36.0-66.0); PLATELET COUNT, AUTOMATED 180 10^3/uL (150-450); RED BLOOD COUNT 3.35 10^6/uL (4.00-5.40); WHITE BLOOD COUNT 4.3 10^3/uL (4.0-10.0)
[2019-10-20 06:59] LABS: CALCIUM LEVEL 9.3 MG/DL (8.8-10.2); CREATININE FOR GFR 1.06 MG/DL (0.55-1.30); GLOMERULAR FILTRATION RATE 55.7 (>45); POTASSIUM SERUM 3.7 MEQ/L (3.5-5.1)
[2019-10-20] MEDS ORDERED: CALCIUM/VITAMIN D 500 MG TAB PO SCH (09:24)
[2019-10-20] MEDS: HEPARIN SOD (PORCINE) 5000 UNITS/ML VIAL (J1644 PER 1000UNITS) SQ SCH ×2 (09:59→21:19)
[2019-10-20] MEDS: ATOVAQUONE SUSP 750MG/5ML 210 ML BTL PO SCH (09:59)
[2019-10-20] MEDS: [UNRECOGNIZED DRUG - OTHER] PO SCH ×3 (09:59→21:18)
[2019-10-20] MEDS: LACOSAMIDE 50 MG TAB (VIMPAT) PO SCH ×2 (10:00→21:19)
[2019-10-20] MEDS: FAMOTIDINE 20 MG TAB PO SCH (10:00)
[2019-10-20] MEDS: MULTIVITAMINS/MINERALS THERAP 1 TAB PO SCH (10:00)
[2019-10-20] MEDS: CYANOCOBALAMIN 500 MCG TAB PO SCH (10:00)
[2019-10-20] MEDS: ASPIRIN 81 MG ENTERIC TAB PO SCH (10:00)
[2019-10-20] MEDS: predniSONE 20 MG TAB PO SCH (10:00)
[2019-10-20] MEDS: FLUCONAZOLE 100 MG TAB PO SCH (10:01)
[2019-10-20] MEDS: POTASSIUM CHLORIDE 10 MEQ SR TABLET PO SCH (10:01)
[2019-10-20] MEDS: CALCIUM/VITAMIN D 500 MG TAB PO SCH ×2 (10:02→10:09)
[2019-10-20] MEDS: PENTOSAN POLYSULFATE SODIUM 100 MG CAP (ELMIRON) PO SCH ×2 (10:20→21:19)
--- NOTE | 2019-10-20 11:17 | IPNPDOC ---
Subjective Date Seen The patient was seen on 10/20/19. Subjective Chief Complaint/HPI Seen and examined at bedside, no specific complaints noted. General: Reports: Normal Appetite; Denies: Chills, Night Sweats, Fatigue, Malaise Constitutional: Denies: Chills, Fever, Night Sweats Eyes: Denies: Pain, Vision change ENT: Denies: Head Aches, Ear Pain, Dysphagia Skin: Denies: Rash, Lesions, Breakdown Pulmonary: Denies: Dyspnea, Cough Cardiovascular: Denies: Chest Pain, Palpitations, Orthopnea, Paroxysmal Noc. Dyspnea, Lt Headedness Gastrointestinal: Denies: Nausea, Vomiting, Abdominal Pain, Diarrhea, Constipation Genitourinary: Denies: Dysuria, Frequency, Incontinence, Retention Hematologic: Denies: Bruising, Bleeding Excessively Musculoskeletal: Denies: Neck Pain, Back Pain, Joint Pain, Muscle Pain, Spasms Neurological: Denies: Weakness, Numbness, Change in speech, Confusion Psych: Reports: Mood Normal; Denies: Depression, Memory Issues Objective Physical Examination General Exam: Positive: Cooperative, No Acute Distress, Other (somnolent but easily arousable) Eye Exam: Positive: PERRLA, Conjunctiva & lids normal, EOMI; Negative: Sclera icteric ENT Exam: Positive: Atraumatic, Mucous membr. moist/pink, Pharynx Normal Neck Exam: Positive: Supple; Negative: JVD, thyromegaly Chest Exam: Positive: Clear to auscultation, Normal air movement Heart Exam: Positive: Rate Normal, Regular Rhythm, Normal S1, Normal S2; Negative: Murmurs, Rubs Telemetry: Positive: No significant arrhythmia Abdomen Exam: Positive: Normal bowel sounds, Soft, Other (stoma present); Negative: Tenderness, Hepatospenomegaly Female Exam: Positive: Nl Ext Genitalia; Negative: Lesions, Discharge, Odor, Tenderness Extremity Exam: Negative: Clubbing, Cyanosis, Edema Skin Exam: Positive: Other skin issue Neuro Exam: Positive: Normal Gait, Normal Speech, Cranial Nerves 3-12 NL, Reflexes 2+ Psych Exam: Positive: Memory Intact, Oriented x 3 Assessment /Plan Assessment 1. depression with suicidal thoughts - awaiting final psychiatry recommendations. - 1:1 sitter discontinued by psychiatry. 2. 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 - secondary to nephrotoxicity from amphotericin and poor oral intake. - encouraged to continue with PO liquids. 3. SLE - continue prednisone, atovaquone. - rituximab every 6 months. 4. cryptococcus infection - continue fluconazole. - daily dressing changes. - superficial ulcer noted on inner aspect of R thigh. - seen by wound care nurse, dressing changes. 5. seizures - continue vimpat. Plan/VTE VTE Prophylaxis Ordered?: Yes VS, I&O, 24H, Fishbone Vital Signs/I&O Vital Signs Date Time Temp Pulse Resp B/P (MAP) Pulse Ox O2 Delivery O2 Flow Rate FiO2 10/20/19 06:00 99.3 81 18 118/68 (85) 91 Room Air I&O- Last 24 Hours up to 6 AM 10/20/19 06:00 Intake Total 240 ml Output Total 700 ml Balance -460 ml Laboratory Data 24H LABS Laboratory Tests 2 10/20/19 06:13: Immature Granulocyte % (Auto) 4.4H, Neutrophils (%) (Auto) 77.4H, Lymphocytes (%) (Auto) 7.9L, Monocytes (%) (Auto) 8.9H, Eosinophils (%) (Auto) 1.2, Basophils (%) (Auto) 0.2, Neutrophils # (Auto) 3.3, Lymphocytes # (Auto) 0.3L, Monocytes # (Auto) 0.4, Eosinophils # (Auto) 0.1, Basophils # (Auto) 0.0, Nucleated Red Blood Cells % (auto) 1.4H, Anion Gap 6L, Glomerular Filtration Rate 55.7, Calcium Level 9.3 CBC/BMP Laboratory Tests 10/20/19 06:13 Microbiology Microbiology 10/18/19 Gram Stain - Final, Resulted 10/18/19 Wound Culture, Resulted Pending DEMETRIO TALYOR MD Oct 20, 2019 11:17
[2019-10-20 14:00] VITALS: BP 115/76
[2019-10-20] MEDS: traZODone 50 MG TAB PO SCH (21:19)
[2019-10-20 22:00] VITALS: BP 113/74
[2019-10-21 06:00] VITALS: BP 118/55
[2019-10-21 06:50] LABS: BASO % 0.4 % (0.0-1.0); EOS # 0.1 10^3/uL (0.0-0.5); EOS % 1.6 % (0.0-3.0); HEMATOCRIT 31.9 % (36.0-47.0); HEMOGLOBIN 9.7 g/dl (12.0-15.5); LYMPH # 0.5 10^3/uL (1.5-5.0); LYMPH % 10.9 % (24.0-44.0); MEAN CORPUSCULAR HEMOGLOBIN 29.6 pg (27.0-33.0); MEAN CORPUSCULAR HGB CONC 30.4 g/dl (32.0-36.5); MEAN CORPUSCULAR VOLUME 97.3 fl (80.0-96.0); MONO # 0.5 10^3/uL (0.0-0.8); NEUTROPHILS # 3.3 10^3/uL (1.5-8.5); NEUTROPHILS % 73.1 % (36.0-66.0); PLATELET COUNT, AUTOMATED 164 10^3/uL (150-450); RED BLOOD COUNT 3.28 10^6/uL (4.00-5.40); WHITE BLOOD COUNT 4.5 10^3/uL (4.0-10.0)
[2019-10-21 07:09] LABS: BLOOD UREA NITROGEN 15 MG/DL (7-18); CALCIUM LEVEL 8.8 MG/DL (8.8-10.2); CARBON DIOXIDE LEVEL 26 MEQ/L (21-32); CHLORIDE LEVEL 108 MEQ/L (98-107); CREATININE FOR GFR 0.94 MG/DL (0.55-1.30); GLOMERULAR FILTRATION RATE > 60.0 (>45); GLUCOSE, FASTING 83 MG/DL (70-100); SODIUM LEVEL 140 MEQ/L (136-145)
[2019-10-21] MEDS: POTASSIUM CHLORIDE 10 MEQ SR TABLET PO SCH (10:42)
[2019-10-21] MEDS: FAMOTIDINE 20 MG TAB PO SCH (10:44)
[2019-10-21] MEDS: ASPIRIN 81 MG ENTERIC TAB PO SCH (10:44)
[2019-10-21] MEDS: PENTOSAN POLYSULFATE SODIUM 100 MG CAP (ELMIRON) PO SCH (10:44)
[2019-10-21] MEDS: ATOVAQUONE SUSP 750MG/5ML 210 ML BTL PO SCH (10:44)
[2019-10-21] MEDS: predniSONE 20 MG TAB PO SCH (10:45)
[2019-10-21] MEDS: CALCIUM/VITAMIN D 500 MG TAB PO SCH (10:45)
[2019-10-21] MEDS: LACOSAMIDE 50 MG TAB (VIMPAT) PO SCH (10:45)
[2019-10-21] MEDS: CYANOCOBALAMIN 500 MCG TAB PO SCH (10:45)
[2019-10-21] MEDS: [UNRECOGNIZED DRUG - OTHER] PO SCH (10:45)
[2019-10-21] MEDS: MULTIVITAMINS/MINERALS THERAP 1 TAB PO SCH (10:45)
[2019-10-21] MEDS: FLUCONAZOLE 100 MG TAB PO SCH (10:45)
[2019-10-21] MEDS: HEPARIN SOD (PORCINE) 5000 UNITS/ML VIAL (J1644 PER 1000UNITS) SQ SCH (10:46)
[2019-10-21] MEDS: ACETAMINOPHEN TAB 650MG DOSE (2X325MG) PO PRN (10:50)
--- NOTE | 2019-10-21 11:17 | DS.PDOC ---
Discharge Summary General Date of Admission Oct 16, 2019 at 12:51 Date of Discharge 10/21/19 Discharge Summary PROCEDURES PERFORMED DURING STAY: [None]. ADMITTING DIAGNOSES: 1. depression 2. JUSTO on CKD (lupus nephritis) 3. SLE 4. cryptococcus infection 5. seizures DISCHARGE DIAGNOSES: 1. depression 2. JUSTO on CKD (lupus nephritis) 3. SLE 4. cryptococcus infection 5. seizures COMPLICATIONS/CHIEF COMPLAINT: AKD/SLE HISTORY OF PRESENT ILLNESS: Please refer to admission HP for detailed HPI. HOSPITAL COURSE: Patient was admitted to the hospital and treated for the following conditions: 1. JUSTO on CKD3 - started on IVF NS, SCr with slow improvement. - electrolytes repleted as needed. - patient encourage to increase PO fluid intake. - SCr now at baseline. 2. depression - seen by psychiatry. - patient initially with suicidal ideations/thoughts, 1:1 sitter placed, closely followed by psychiatry. - initial plan was for voluntary admission to psychiatric facility but patients mentation improved, ?hypoactive delirium secondary to dehydration. - patient subsequently declined admission, per psychiatry patient to follow up on Friday with Dr. Fair who specializes in psychiatric issues in lupus, is actively involved in patient care. 3. SLE - continue prednisone and atovaquone. - outpatient follow up. 4. Cryptococca infection - continue fluconazole. 5. Seizures - continue vimpat. DISCHARGE MEDICATIONS: Please see below. ALLERGIES: Please see below. PHYSICAL EXAMINATION ON DISCHARGE: GENERAL: AAO x 3, NAD. HEENT: NCAT, anicteric sclera, PERRLA/EOMI NECK: supple, no JVD, no thyromegaly CARDIOVASCULAR EXAMINATION: NS1S2, regular, no murmurs/rubs RESPIRATORY EXAMINATION: CTA b/l, no wheezing, rales, rhonchi. ABDOMINAL EXAMINATION: NT/ND, positive bowel sounds, no masses EXTREMITIES: no cyanosis, clubbing, edema SKIN: scattered echymotic lesions, inner R thigh with dressing, NEUROLOGICAL EXAMINATION: AAO x 3, no motor/sensory deficits, PSYCHIATRIC EXAMINATION: calm, cooperative, normal affectis. LABORATORY DATA: Please see below. PROGNOSIS: good ACTIVITY: [As tolerated]. DIET: regular DISCHARGE PLAN: home DISPOSITION: home DISCHARGE INSTRUCTIONS: 1. appointment with psychiatry Dr. Fair on 10/22/19. ITEMS TO FOLLOWUP ON ON OUTPATIENT: 1. none DISCHARGE CONDITION: [Stable]. TIME SPENT ON DISCHARGE: Greater than [30] minutes. Vital Signs/I&Os Vital Signs Date Time Temp Pulse Resp B/P (MAP) Pulse Ox O2 Delivery O2 Flow Rate FiO2 10/21/19 06:00 97.3 74 18 118/55 (76) 98 Room Air I&O- Last 24 Hours up to 6 AM 10/21/19 06:00 Intake Total 1060 ml Output Total 400 ml Balance 660 ml Laboratory Data Labs 24H Laboratory Tests 2 10/21/19 06:14: Immature Granulocyte % (Auto) 4.0H, Neutrophils (%) (Auto) 73.1H, Lymphocytes (%) (Auto) 10.9L, Monocytes (%) (Auto) 10.0H, Eosinophils (%) (Auto) 1.6, Basophils (%) (Auto) 0.4, Neutrophils # (Auto) 3.3, Lymphocytes # (Auto) 0.5L, Monocytes # (Auto) 0.5, Eosinophils # (Auto) 0.1, Basophils # (Auto) 0.0, Nucleated Red Blood Cells % (auto) 0.7H, Anion Gap 6L, Glomerular Filtration Rate > 60.0, Calcium Level 8.8 CBC/BMP Laboratory Tests 10/21/19 06:14 Microbiology Microbiology 10/18/19 Gram Stain - Final, Resulted 10/18/19 Wound Culture, Resulted Pending Discharge Medications Scheduled Antiox.mv No.10/Omeg3s/Lut/Dixie (I-Caps with Lutein-[place]ab[place] 3 Sfg) 1 Each Capsule, 2 CAP PO DAILY, (Reported) Aspirin (Aspir 81) 81 Mg Tab, 81 MG PO DAILY, (Reported) Atovaquone (Mepron) 750 Mg/5 Ml Oral.susp, 1,500 MG PO DAILY, (Reported) Biotin (Biotin) 1 Mg Capsule, 1 MG PO DAILY, (Reported) Calcium Carbonate/Vitamin D3 (Calcium 600 with Vit D Chew Tb) 1 Each Tab.chew, 1 CHW PO DAILY, (Reported) Cyanocobalamin (Vitamin B-12) (B-12) 500 Mcg Tab.rapdis, 500 MCG SL DAILY, (Reported) Famotidine (Famotidine) 20 Mg Tablet, 20 MG PO DAILY, (Reported) Fluconazole (Diflucan) 200 Mg Tablet, 400 MG PO DAILY, (Reported) Lacosamide (Vimpat) 100 Mg Tablet, 100 MG PO BID, (Reported) Multivitamin with Minerals (Multiple Vitamin) 1 Each Tablet, 1 TAB PO DAILY, (Reported) [place]-3/Dha/Epa/Fish Oil (Fish Oil Gummies) 1 Chw Chw, 2 CHW PO DAILY, (Reported) Pentosan Polysulfate Sodium (Elmiron) 100 Mg Capsule, 200 MG PO BID, (Reported) Prednisone (Prednisone) 20 Mg Tablet, 20 MG PO DAILY, (Reported) Rituximab (Rituxan) 10 Mg/1 Ml Vial, 100 MG IV ASDIRECTED, (Reported) Every 6 months Thiothixene (Thiothixene) 2 Mg Capsule, 2 MG PO TID, (Reported) Trazodone HCl (Trazodone HCl) 50 Mg Tablet, 50 MG PO QHS, (Reported) Scheduled PRN Acyclovir (Acyclovir) 5 % Oin, 1 APLCT TOP BID PRN for vulvar lesions, (Reported) Bismuth Subsalicylate (Pepto-Bismol) 262 Mg Tab, 262 MG PO for INDIGESTION, (Reported) Calcium Carbonate (Tums) 300 Mg Tab.chew, 750 MG PO DAILY PRN for INDIGESTION, (Reported) Lidocaine (Lidocaine) 5% Adh..patch, 1 PATCH TD DAILY PRN for PAIN, (Reported) On 12 hours, off 12 hours Ondansetron HCl (Zofran) 4 Mg Tab, 4 MG PO PRN PRN for NAUSEA, (Reported) Polyvinyl Alcohol (Artificial Tears) 15 Ml Drops, 1 DROP OU QID PRN for DRY EYES, (Reported) Tizanidine HCl (Tizanidine HCl) 4 Mg Tablet, 4 MG PO Q6H PRN for MUSCLE SPASMS, (Reported) Tramadol HCl (Tramadol HCl) 50 Mg Tab, 50 MG PO DAILY PRN for PAIN, (Reported) Allergies Coded Allergies: Echinacea (Verified Allergy, Intermediate, RASH, 05/06/19) amoxicillin (Verified Allergy, Intermediate, WHEEZING, 05/06/19) clavulanic acid (Verified Allergy, Intermediate, WHEEZING, 05/06/19) hydromorphone (Verified Allergy, Intermediate, HIVES, 05/06/19) methotrexate (Verified Allergy, Intermediate, PNEUMONIA, 05/06/19) METALS (Verified Allergy, Unknown, RASH, 1/18/18) SEASONAL ALLERGIES (Verified Allergy, Unknown, 09/18/17) infliximab (Verified Allergy, Unknown, SYSTEMIC LUPUS, 05/06/19) ketorolac (Verified Adverse Reaction, Intermediate, BURNING, 05/06/19) Sjavsjt-Efx-Xgl Reductase Inhibitor (Verified Adverse Reaction, Mild, MUSCLE PAIN, 10/16/19) Uncoded Allergies: LYSINE (Allergy, Intermediate, RASH, 05/06/19) DEMETRIO TAYLOR MD Oct 21, 2019 11:17
== END 2019-10-21 13:57 | disposition home or self-care (01) | DRG 469 ==
LOC: M ED 08:46 → M ED INP 12:51 → ENRESERV 13:25 → M MSPAV 14:00
PROVIDERS: ADMIT Internal Medicine Nephrology; ATTEND Internal Medicine
DX: N17.9 Acute kidney failure, unspecified (principal); B45.2 Cutaneous cryptococcosis; M32.0 Drug-induced systemic lupus erythematosus; L97.919 Non-pressure chronic ulcer of unspecified part of right lower leg with unspecified severity; K50.90 Crohn's disease, unspecified, without complications; T36.7X5A Adverse effect of antifungal antibiotics, systemically used, initial encounter; L97.929 Non-pressure chronic ulcer of unspecified part of left lower leg with unspecified severity; M32.14 Glomerular disease in systemic lupus erythematosus; R56.9 Unspecified convulsions; N30.10 Interstitial cystitis (chronic) without hematuria; Z93.2 Ileostomy status; Z79.82 Long term (current) use of aspirin; Z79.899 Other long term (current) drug therapy; Z88.1 Allergy status to other antibiotic agents; J31.0 Chronic rhinitis; Z91.048 Other nonmedicinal substance allergy status; Z88.8 Allergy status to other drugs, medicaments and biological substances; M79.7 Fibromyalgia; I12.9 Hypertensive chronic kidney disease with stage 1 through stage 4 chronic kidney disease, or unspecified chronic kidney disease; H35.30 Unspecified macular degeneration; Z79.52 Long term (current) use of systemic steroids; M81.0 Age-related osteoporosis without current pathological fracture; Z98.41 Cataract extraction status, right eye; Z98.42 Cataract extraction status, left eye; E86.0 Dehydration; R53.1 Weakness; E87.6 Hypokalemia; F32.9 Major depressive disorder, single episode, unspecified; N18.3 Chronic kidney disease, stage 3 (moderate); M32.19 Other organ or system involvement in systemic lupus erythematosus; M32.10 Systemic lupus erythematosus, organ or system involvement unspecified

== ENCOUNTER → 2019-11-09 | Outpatient (REF) | payer BC ==
[~2019-11-09] MED LIST changes: +AMLO10TA5 PO; +CALCCHW4 PO; +DIFL200T PO; +FAMO1TAB11 PO; +FAMO1TAB25 PO; +ICAPCAP3 PO; +LIDO1PAD TD; +MEPR750S PO; +POLYOPD OU; +PRED20TA PO; +RITU10VLL IV; +TIZA4TAB4 PO; +TORS20TA2 PO; +TRAZ-252 PO; +TUMS750C22 PO; +VIMP100T PO; +[UNRECOGNIZED DRUG - CODE] PO; +[UNRECOGNIZED DRUG - CODE] SL
[2019-11-09 13:21] LABS: BACTERIA, URINE AUTO 2+ (NEGATIVE); CALCIUM OXALATE CRYSTALS LARGE; MUCUS, URINE SMALL (NEGATIVE); RBC, URINE AUTO 25 /HPF (0-3); SQUAMOUS EPITHELIAL CELL UR AU 1 /HPF (0-6); WBC, URINE AUTO TNTC /HPF (0-3)
== END ==
LOC: M LAB REF 12:15
PROVIDERS: ATTEND Nurse Practitioner Adult Health
DX: R56.9 Unspecified convulsions (principal); R31.29 Other microscopic hematuria

== ENCOUNTER → 2020-02-18 | Outpatient (CLI) | payer BC ==
[~2020-02-18] MED LIST changes: -AMLO10TA5 PO; +AMLO1TAB25 PO; -ASPI81TA85 PO; +ASPI81TA86 PO; -CALC600T3 PO; +CALC600T86 PO; +PANT40TA29 PO; -PANT40TA3 PO
--- NOTE | 2020-02-18 15:27 | REP ---
REASON FOR EXAM: Followup. All priors were reviewed. The last two priors 07/13/2019 and 07/24/2019 are from an outside institution. No report accompanies those exams. The lack of intravenous contrast significantly decreases the sensitivity of the exam. There is no mediastinal or hilar adenopathy. There are no pleural or pericardial effusions. The imaged upper abdomen and imaged osseous structures appear stable. There are multiple bilateral healed rib fractures and the bones appear demineralized. Evaluation of the lung porter shows significant improvement in the previously present bibasilar opacities with air bronchograms. No new abnormal nodules, masses, or opacities have developed. IMPRESSION: Improvement as described above. Followup to resolution is suggested. Electronically Signed by Hunter Alvarenga DO 02/18/2020 03:37 P
== END ==
LOC: M RAD 13:47
PROVIDERS: ATTEND Internal Medicine Pulmonary Disease
DX: R91.8 Other nonspecific abnormal finding of lung field (principal)

== ENCOUNTER → 2020-03-30 | Outpatient (CLI) | payer BC ==
--- NOTE | 2020-05-02 11:10 | DEXA ---
AP SPINE L2 - L4 0.839 -2.9 -1.4 LT FEMUR TOTAL 0.742 -2.1 -1.0 LT NECK 0.816 -1.6 -0.2 RT FEMUR TOTAL 0.749 -2.1 -0.9 RT NECK 0.717 -2.3 -0.9 TOTAL BODY TOTAL OTHER COMMENTS: There is low bone density of the hips. There is Osteoporosis of the spine. The density of the spine has decreased 12.4% since the initial exam on 04/19/2014. The decreased 6.3% since the most recent exam on 11/17/2018. The density of the left hip has decreased 3.6% since the initial exam on 04/19/2014. The density of the left hip has increased 2.2% since the most recent exam on 11/17/2018. The density of the right hip has increased 0.4% since the initial exam on 10/09/2016. The density of the right hip has increased 1.2% since the most recent exam on 11/17/2018. FOLLOW-UP: Recommendation for the next bone density exam: 2 years. GARRY
--- NOTE | 2020-05-22 13:39 | REP ---
BILATERAL MAMMOGRAM There is delay in interpretation of this study due to catastrophic computer system failure at [facility] from a malware attack. FINDINGS: No family history of breast cancer. Tyrer-Cuzick lifetime risk of breast cancer at 9.3%. Comparison made with prior studies 11/17/2018 as well as other prior exams. MLO and CC views of both breasts were performed. Moderate scattered fibroglandular tissue is again seen bilaterally. There is no evidence of mass or architectural distortion. Metallic clip is again seen in the upper outer quadrant of the right breast from a prior benign ultrasound-guided biopsy in 2008. New somewhat linear calcifications are seen grouped together in the lower inner left breast. I would recommend magnification views to further evaluate. IMPRESSION: ACR 0 incomplete. New grouping of thin linear calcifications in the lower inner left breast. Recommend magnification views to further evaluate. BIRADS 0: BI-RADS/ACR category 0 mammogram. Incomplete: Need additional imaging evaluation and/or prior mammograms for comparison. This mammogram was interpreted with the aid of an FDA approved computer aided detection system. The patient states she has not had a clinical breast exam in over one year. Send letter 0. MTDD
== END ==
LOC: M WHC 12:30
PROVIDERS: ATTEND Nurse Practitioner Adult Health
DX: M81.8 Other osteoporosis without current pathological fracture (principal); Z12.31 Encounter for screening mammogram for malignant neoplasm of breast

== ENCOUNTER → 2020-04-18 | Outpatient (REF) | payer BC ==
[2020-06-05 21:33] LABS: INR 0.95; PROTHROMBIN TIME 12.9 SECONDS (12.5-14.3)
[2020-06-05 21:34] LABS: PARTIAL THROMBOPLASTIN TIME 26.4 SECONDS (24.2-38.5)
== END ==
LOC: M LAB REF 10:34
PROVIDERS: ATTEND Nurse Practitioner Adult Health
DX: Z01.818 Encounter for other preprocedural examination (principal)

== ENCOUNTER → 2020-05-12 | Outpatient (CLI) | payer BC ==
--- NOTE | 2020-06-02 09:47 | REP ---
DIAGNOSTIC MAMMOGRAM LEFT BREAST: FINDINGS: Multiple magnification views of the left breast are performed and correlated with the recent mammogram of 03/30/20. These magnification views confirm the present of clustered pleomorphic microcalcifications which are new in the lower inner left breast, mid-third. Stereotactic biopsy is recommended. IMPRESSION: ACR 4 suspicious. New cluster of pleomorphic microcalcifications lower inner left breast. Recommend stereotactic biopsy. Mammogram letter 4. MTDD
== END ==
LOC: M WHC 10:05
PROVIDERS: ATTEND Nurse Practitioner Adult Health
DX: N60.12 Diffuse cystic mastopathy of left breast (principal)

== ENCOUNTER → 2020-10-06 | Outpatient (REF) | payer BC, MEDICARE | LOC: M LAB REF 15:34 | PROVIDERS: ATTEND Physician Assistant | DX: S71.102D Unspecified open wound, left thigh, subsequent encounter (principal); W18.30XD Fall on same level, unspecified, subsequent encounter; Y92.009 Unspecified place in unspecified non-institutional (private) residence as the place of occurrence of the external cause ==

== ENCOUNTER → 2021-01-02 | Outpatient (CLI) | payer MEDICARE ==
[~2021-01-02] MED LIST changes: +GASTROGRAFIN SOLUTION 30ML (Q9963) As Ordered ONE
--- NOTE | 2021-01-03 08:53 | REP ---
INDICATION: RIGHT UPPER QUAD ABD PAIN, PARA HERNIA. Rule out parastomal hernia. Patient gives a surgical history of hysterectomy and colon resection. History provided with previous exams includes Crohn's disease. COMPARISON: Comparison CT enterography images January 30, 2018. Comparison is made with skeletal survey from 26 April 2019.. TECHNIQUE: Oral contrast is administered. Helical scanning is acquired and 3 mm axial images are re-formatted. Coronal and sagittal MPR images are provided. FINDINGS: Digital preliminary whiskey filterer radiograph demonstrates an unremarkable bowel gas pattern. There appear to be old fractures of the pubic rami bilaterally. There is bilateral lower lobe pleuroparenchymal linear fibrosis. No pleural effusion or upper abdominal ascites is seen. There is a 1 cm cyst in the right lobe of the liver which is unchanged from the 2018 prior study. No other focal liver lesion is seen. The spleen is unremarkable. No adrenal abnormality is seen. No abnormality is observed in the pancreas. Gallbladder is unremarkable. There is no evidence of hydronephrosis or intrarenal calculus. Both kidneys are slightly malrotated as previously seen. The appendix is surgically absent. There is a right lower quadrant ileostomy. The patient is apparently status post complete colon resection. Apparently including the rectum. No pelvic mass or adenopathy is observed. No retroperitoneal mass or adenopathy is seen. Small bowel loops are seen opacifying with orally administered contrast and oral contrast is seen extending into the ileostomy bag. There is no evidence to suggest parastomal hernia at the site of the right mid abdominal ileostomy. No other abdominal wall defect is seen. On bone window settings, there are sclerotic changes affecting the inferior and superior pubic rami bilaterally, left more extensively than right. There are healing fractures associated with these changes in the inferior and superior pubic rami on both sides however the sclerosis is mottled and little more geographic than would be expected from healing insufficiency fracture or traumatic fracture. There are mottled sclerotic changes in the right sacrum and bilateral iliac bones as well. There are multiple healing rib fractures with sclerotic changes bilaterally. These bony changes are new when compared with the January 30, [address] images however, skeletal survey images from April 26, 2019 demonstrates the bilateral pubic ramus findings and the right sacral sclerosis and the iliac bone sclerosis along with multiple healing rib fractures. The changes are apparently chronic and consistent with multiple insufficiency or old healed fractures. IMPRESSION: No CT evidence of parastomal hernia. Status post colectomy and hysterectomy. Diffuse osteoporosis and numerous healing rib fractures. Bilateral pubic ramus fractures and right sacral fractures are seen consistent with healing insufficiency fractures. <Electronically signed by Naren Archer > 01/03/21 0800
== END ==
LOC: M RAD 16:44
PROVIDERS: ATTEND Surgery Trauma Surgery
DX: K76.89 Other specified diseases of liver (principal); R10.11 Right upper quadrant pain; K43.5 Parastomal hernia without obstruction or gangrene
CPT/HCPCS: 74176; Q9963

== ENCOUNTER → 2021-05-11 | Outpatient (CLI) | payer MEDICARE ==
[~2021-05-11] MED LIST changes: +FAMO10TA50 PO; -FAMO1TAB25 PO; -GASTROGRAFIN SOLUTION 30ML (Q9963) As Ordered ONE; -OLOP0.2S OP; +OLOP2.5D7 OP; +PROHANCE 279.3MG/ML 15ML VIAL As Ordered ONE
[2021-05-11 15:46] LABS: CREATININE FOR GFR 1.17 MG/DL (0.55-1.30); GLOMERULAR FILTRATION RATE 49.4 (>45)
== END ==
LOC: M RAD 13:36 → M LAB 13:36
PROVIDERS: ATTEND Internal Medicine Gastroenterology
DX: K86.2 Cyst of pancreas (principal)
CPT/HCPCS: 36415; 82565; A9576

== ENCOUNTER → 2021-05-23 | Outpatient (CLI) | payer MEDICARE ==
--- NOTE | 2021-05-23 20:51 | REPVR ---
PROCEDURE INFORMATION: Exam: MR Abdomen Without and With Contrast Exam date and time: 05/23/2021 5:11 PM Age: 66 years old Clinical indication: Abdominal pain; Other: Pancreatic cyst/mrcp TECHNIQUE: Imaging protocol: MR of the abdomen without and with intravenous contrast. Contrast material: PROHANCE; Contrast volume: 6 ml; Contrast route: INTRAVENOUS (IV); COMPARISON: CT ABD/PEL W/PO CONTRAST ONLY 01/02/2021 6:26 PM FINDINGS: Liver: Liver measures 23 cm in craniocaudal span. There appears to be normal variant Dali's lobe of the liver. 9 mm simple cyst segment 8 of the liver. Gallbladder and bile ducts: Multiple gallstones present in the gallbladder. Common bile duct measures 4.2 mm the level of the pancreatic head. No intrahepatic ductal dilatation. No choledocholithiasis. No intrahepatic ductal dilatation. Pancreas: Rounded T2 hyperintense lesion measuring 1.6 x 0.8 0.9 cm contiguous with the inferior margin of the pancreatic body Spleen: The spleen measures 10.8 cm in craniocaudal span. Adrenal glands: Unremarkable. No mass. Kidneys and ureters: 7.5 mm simple cyst mid right kidney. Less than 3 mm simple cyst upper pole right kidney and mid right kidney. 5 mm simple cyst lower pole left kidney. Less than 3 mm simple mid left kidney and upper pole of the left kidney . 6.6 mm complex cyst lower pole right kidney. No hydronephrosis in either kidney. Stomach and bowel: Visualized stomach and intestines are unremarkable. Intraperitoneal space: No free fluid. Arteries: No abdominal aortic aneurysm. Bones/joints: Unremarkable. Soft tissues: Healed midline abdominal incision. In the right lower quadrant of the anterior abdominal wall. IMPRESSION: 1. Simple cyst contiguous with the inferior margin of the pancreatic body.. Simple epithelial cyst or pancreatic pseudocyst among the primary diagnostic considerations.Reimaging every 6 months for 2 years, then every 1 year for 2 years, then every 2 years for 6 years is recommended. Alternatively, endoscopic ultrasound with fine needle aspiration is recommended. (Reference: Swati, 2017) 2. Bilateral simple renal cysts. Complex cyst lower pole right kidney.Recommend CT without and with contrast or MR without and with contrast at 6 months and 12 months, then yearly for 5 years. 3. Cholelithiasis. No ductal dilatation. No choledocholithiasis. 4. Simple benign hepatic cyst. No follow-up indicated based on this finding. References: Swati FERRER, et al. Management of Incidental Pancreatic Cysts: A White Paper of the ACR Incidental Findings Committee. J Am Reid Radiol. 2017;14(7):911-923. COMMENTS: Consistent with the [employer]'s Incidental Findings Committee white paper (J Am Reid Radiol 2018): Any incidental renal lesion less than 1 cm or classified as too small to characterize, or any incidental cystic renal lesion characterized as simple-appearing, is likely benign. No follow-up imaging is recommended for these lesions per consensus recommendations based on imaging criteria. Electronically signed by: Sakshi Wahl On 05/23/2021 20:50:48 PM
== END ==
LOC: M RAD 16:10
PROVIDERS: ATTEND Internal Medicine Gastroenterology
DX: K86.2 Cyst of pancreas (principal)
CPT/HCPCS: 74183; A9576

== ENCOUNTER → 2021-09-06 | Outpatient (REF) | payer MEDICARE ==
[~2021-09-06] MED LIST changes: +LOSA25TA13 PO; -LOSA25TA14 PO; -PROHANCE 279.3MG/ML 15ML VIAL As Ordered ONE; +TIZA10TA PO; -TIZA4TAB4 PO
[2021-09-06 17:41] LABS: APPEARANCE, URINE TURBID (CLEAR); BACTERIA, URINE AUTO NEGATIVE (NEGATIVE); BILIRUBIN, URINE AUTO NEGATIVE (NEGATIVE); BLOOD, URINE BLOOD 3+ (NEGATIVE); COLOR, URINE AMBER (YELLOW); GLUCOSE, URINE (UA) AUTO NEGATIVE (NEGATIVE); KETONE, URINE AUTO TRACE mg/dL (NEGATIVE); LEUKOCYTE ESTERASE, URINE AUTO 3+ (NEGATIVE); NITRITE, URINE AUTO NEGATIVE (NEGATIVE); PROTEIN, URINE AUTO 2+ mg/dL (NEGATIVE); RBC, URINE AUTO TNTC /HPF (0-3); SPECIFIC GRAVITY URINE AUTO 1.015 (1.002-1.035); SQUAMOUS EPITHELIAL CELL UR AU 2 /HPF (0-6); UROBILINOGEN, URINE AUTO 0.2 mg/dL (0.0-2.0); WBC, URINE AUTO TNTC /HPF (0-3)
== END ==
LOC: M LAB REF 17:13
PROVIDERS: ATTEND Nurse Practitioner Adult Health
DX: R31.9 Hematuria, unspecified (principal)

== ENCOUNTER → 2021-09-17 | Outpatient (CLI) | payer MEDICARE | LOC: M RAD 12:41 | PROVIDERS: ATTEND Physician Assistant | DX: R06.02 Shortness of breath (principal) ==

== ENCOUNTER → 2021-09-27 | Outpatient (REF) | payer MEDICARE | LOC: M LAB REF 16:36 | PROVIDERS: ATTEND Dermatology | DX: K50.918 Crohn's disease, unspecified, with other complication (principal) ==

== ENCOUNTER → 2022-01-29 | Outpatient (REF) | payer MEDICARE ==
[~2022-01-29] MED LIST changes: +[UNRECOGNIZED DRUG - CODE] PO; -[UNRECOGNIZED DRUG - CODE] PO
== END ==
LOC: M LAB REF 16:28
PROVIDERS: ATTEND Internal Medicine
DX: E78.2 Mixed hyperlipidemia (principal)

== ENCOUNTER → 2022-03-12 | Outpatient (CLI) | payer MEDICARE | LOC: M WHC 10:31 | PROVIDERS: ATTEND Nurse Practitioner Adult Health | DX: Z12.31 Encounter for screening mammogram for malignant neoplasm of breast (principal); M81.0 Age-related osteoporosis without current pathological fracture ==

== ENCOUNTER → 2022-04-03 | Outpatient (REF) | payer MEDICARE ==
[2022-04-06 04:07] LABS: LDL DIRECT 153 mg/dL (0-99)
== END ==
LOC: M LAB REF 16:20
PROVIDERS: ATTEND Nurse Practitioner Adult Health
DX: E78.2 Mixed hyperlipidemia (principal)

== ENCOUNTER 2022-08-15 19:03 | Emergency (ER) | payer MEDICARE ==
[~2022-08-15] VITALS: Ht 154.9 cm; Wt 75.5 kg
[2022-08-15 19:53] LABS: BASO % 0.3 % (0.0-1.0); EOS % 0.1 % (0.0-3.0); HEMATOCRIT 38.6 % (36.0-47.0); LYMPH # 0.3 10^3/uL (1.5-5.0); MEAN CORPUSCULAR HEMOGLOBIN 31.5 pg (27.0-33.0); MEAN CORPUSCULAR HGB CONC 31.1 g/dl (32.0-36.5); MEAN CORPUSCULAR VOLUME 101.3 fl (80.0-96.0); MONO # 0.5 10^3/uL (0.0-0.8); MONO % 6.4 % (2.0-8.0); NEUTROPHILS # 6.2 10^3/uL (1.5-8.5); NEUTROPHILS % 85.6 % (36.0-66.0); PLATELET COUNT, AUTOMATED 148 10^3/uL (150-450); RED BLOOD COUNT 3.81 10^6/uL (4.00-5.40); WHITE BLOOD COUNT 7.2 10^3/uL (4.0-10.0)
[2022-08-15 20:14] LABS: INR 0.93; PROTHROMBIN TIME 12.7 SECONDS (12.5-14.5)
[2022-08-15 20:15] LABS: CK-MB VALUE MASS 3.5 NG/ML (<3.6); LIPASE 97 U/L (12-53)
[2022-08-15 20:17] LABS: BILIRUBIN,DIRECT 0.2 MG/DL (<0.4)
[2022-08-15 20:19] LABS: ALBUMIN 3.4 G/DL (3.2-5.2); ALKALINE PHOSPHATASE 99 U/L (46-116); ALT/SGPT 37 U/L (7.0-40); AST/SGOT 25 U/L (<34); BILIRUBIN,TOTAL 0.7 MG/DL (0.3-1.2); BLOOD UREA NITROGEN 26 MG/DL (9-23); CALCIUM LEVEL 9.1 MG/DL (8.3-10.6); CARBON DIOXIDE LEVEL 19 MMOL/L (20-31); CHLORIDE LEVEL 107 MMOL/L (98-107); CPK CREATINE PHOSPHOKINASE 69 U/L (34-145); CREATININE FOR GFR 0.85 MG/DL (0.55-1.30); GLOMERULAR FILTRATION RATE > 60.0 (>45); GLUCOSE, FASTING 130 MG/DL (74-106); MB/CK RELATIVE INDEX 5.07 (< OR =4); POTASSIUM SERUM 4.6 MMOL/L (3.5-5.1); SODIUM LEVEL 141 MMOL/L (136-145); THYROID STIMULATING HORMONE 0.422 uIU/ML (0.55-4.78); TOTAL PROTEIN 6.2 G/DL (5.7-8.2)
[2022-08-15 20:29] LABS: RSV AMPLIFICATION NEGATIVE (NEGATIVE)
[2022-08-15 20:34] LABS: D-DIMER QUANT 1481.71 ng/ml (<500)
[2022-08-15] MEDS ORDERED: ACETAMINOPHEN 325 MG TAB PO ONE (20:45)
[2022-08-15] MEDS ORDERED: NS 1,000 ML IV ONE (20:55)
[2022-08-15] MEDS ORDERED: ISOVUE-370 76% 100ML VIAL As Ordered ONE (20:58)
[2022-08-15 22:09] LABS: CK-MB VALUE MASS 2.9 NG/ML (<3.6)
[2022-08-15 22:11] LABS: MB/CK RELATIVE INDEX 4.39 (< OR =4)
[2022-08-15 22:33] VITALS: BP 121/67
== END 2022-08-15 22:59 | disposition home or self-care (01) ==
LOC: M ED 19:03
DX: R07.89 Other chest pain (principal); E78.5 Hyperlipidemia, unspecified; K21.9 Gastro-esophageal reflux disease without esophagitis; J30.2 Other seasonal allergic rhinitis; M32.9 Systemic lupus erythematosus, unspecified; Z90.49 Acquired absence of other specified parts of digestive tract; Z79.82 Long term (current) use of aspirin; Z79.899 Other long term (current) drug therapy; Z88.0 Allergy status to penicillin; Z88.1 Allergy status to other antibiotic agents; Z88.8 Allergy status to other drugs, medicaments and biological substances; Z88.5 Allergy status to narcotic agent
CPT/HCPCS: 71045; 71275; 80048; 80076; 82550; 82553; 83690; 84443; 84484; 85025; 85379; 85610; 85730; 87631; 93005; 93041; 94760; 96360; 99285; Q9967

== ENCOUNTER → 2022-08-15 | Outpatient (CLI) | payer MEDICARE | LOC: M PLAIMG 12:53 | PROVIDERS: ATTEND Internal Medicine Pulmonary Disease | DX: J84.9 Interstitial pulmonary disease, unspecified (principal) ==

== ENCOUNTER 2022-08-22 10:49 | Emergency (ER) | payer MEDICARE ==
[~2022-08-22] VITALS: Ht 154.9 cm; Wt 73.0 kg
[2022-08-22 12:19] LABS: BASO % 0.5 % (0.0-1.0); EOS % 0.3 % (0.0-3.0); HEMOGLOBIN 12.2 g/dl (12.0-15.5); LYMPH # 0.3 10^3/uL (1.5-5.0); LYMPH % 3.6 % (24.0-44.0); MEAN CORPUSCULAR HEMOGLOBIN 31.4 pg (27.0-33.0); MEAN CORPUSCULAR HGB CONC 31.3 g/dl (32.0-36.5); MEAN CORPUSCULAR VOLUME 100.3 fl (80.0-96.0); MONO # 0.6 10^3/uL (0.0-0.8); MONO % 7.8 % (2.0-8.0); NEUTROPHILS # 6.5 10^3/uL (1.5-8.5); NEUTROPHILS % 83.7 % (36.0-66.0); PLATELET COUNT, AUTOMATED 164 10^3/uL (150-450); RED BLOOD COUNT 3.89 10^6/uL (4.00-5.40); WHITE BLOOD COUNT 7.8 10^3/uL (4.0-10.0)
[2022-08-22 12:37] LABS: INR 0.96; PARTIAL THROMBOPLASTIN TIME 22.3 SECONDS (24.8-34.2)
[2022-08-22 12:58] LABS: RSV AMPLIFICATION NEGATIVE (NEGATIVE)
[2022-08-22 13:03] LABS: MAGNESIUM LEVEL 1.9 MG/DL (1.8-2.4)
[2022-08-22 13:04] LABS: BLOOD UREA NITROGEN 37 MG/DL (9-23); CALCIUM LEVEL 9.3 MG/DL (8.3-10.6); CARBON DIOXIDE LEVEL 22 MMOL/L (20-31); CHLORIDE LEVEL 104 MMOL/L (98-107); CREATININE FOR GFR 0.87 MG/DL (0.55-1.30); GLOMERULAR FILTRATION RATE > 60.0 (>45); GLUCOSE, FASTING 117 MG/DL (74-106); POTASSIUM SERUM 3.9 MMOL/L (3.5-5.1); SODIUM LEVEL 141 MMOL/L (136-145)
[2022-08-22 13:07] LABS: FREE T4 1.09 NG/DL (0.89-1.76); THYROID STIMULATING HORMONE 0.642 uIU/ML (0.55-4.78)
[2022-08-22] MEDS ORDERED: ISOVUE-370 76% 100ML VIAL As Ordered ONE (13:46)
[2022-08-22] MEDS ORDERED: ACETAMINOPHEN 1000MG 100ML IV BAG IV ONE (13:50)
[2022-08-22 15:15] VITALS: BP 182/109
== END 2022-08-22 15:51 | disposition home or self-care (01) ==
LOC: M ED 10:49
DX: R55 Syncope and collapse (principal); I95.1 Orthostatic hypotension; S00.03XA Contusion of scalp, initial encounter; K86.2 Cyst of pancreas; Z90.49 Acquired absence of other specified parts of digestive tract; K50.90 Crohn's disease, unspecified, without complications; K80.20 Calculus of gallbladder without cholecystitis without obstruction; M32.9 Systemic lupus erythematosus, unspecified; K76.0 Fatty (change of) liver, not elsewhere classified; Z87.81 Personal history of (healed) traumatic fracture; Z79.82 Long term (current) use of aspirin; Z79.899 Other long term (current) drug therapy; Z88.8 Allergy status to other drugs, medicaments and biological substances; J30.2 Other seasonal allergic rhinitis; Z88.1 Allergy status to other antibiotic agents; Z88.5 Allergy status to narcotic agent
CPT/HCPCS: 70450; 71260; 72125; 74177; 80048; 83605; 83735; 84439; 84443; 85025; 85610; 85730; 87631; 93005; 93041; 94760; 96374; 99285; J0131; Q9967

== ENCOUNTER → 2022-11-22 | Outpatient (CLI) | payer MEDICARE | LOC: M PLAIMG 11:46 | PROVIDERS: ATTEND Internal Medicine Pulmonary Disease | DX: J84.9 Interstitial pulmonary disease, unspecified (principal); R94.2 Abnormal results of pulmonary function studies ==

== ENCOUNTER 2023-04-30 19:33 | Observation (INO) | payer MEDICARE ==
[~2023-04-30] VITALS: Ht 154.9 cm; Wt 71.5 kg
[~2023-04-30 19:33] MED LIST changes: +ARTIDRO4 OU; -POLYOPD OU
[2023-04-30 22:29] LABS: BASO % 0.4 % (0.0-1.0); EOS # 0.1 10^3/uL (0.0-0.5); EOS % 0.5 % (0.0-3.0); HEMATOCRIT 40.4 % (36.0-47.0); HEMOGLOBIN 12.9 g/dl (12.0-15.5); LYMPH # 0.5 10^3/uL (1.5-5.0); MEAN CORPUSCULAR HEMOGLOBIN 31.8 pg (27.0-33.0); MEAN CORPUSCULAR HGB CONC 31.9 g/dl (32.0-36.5); MEAN CORPUSCULAR VOLUME 99.5 fl (80.0-96.0); MONO # 0.7 10^3/uL (0.0-0.8); MONO % 7.2 % (2.0-8.0); NEUTROPHILS # 8.1 10^3/uL (1.5-8.5); NEUTROPHILS % 86.2 % (36.0-66.0); PLATELET COUNT, AUTOMATED 148 10^3/uL (150-450); RED BLOOD COUNT 4.06 10^6/uL (4.00-5.40); WHITE BLOOD COUNT 9.4 10^3/uL (4.0-10.0)
[2023-04-30 22:39] LABS: ERYTHROCYTE SEDIMENTATION RATE 61 mm/hr (0-30)
[2023-04-30] MEDS ORDERED: VANCOMYCIN HCL 1,000 MG, VIAL MATE ADAPTER 1 EACH in D5W 250 ML IV ONE (22:55)
[2023-04-30 22:56] LABS: CALCIUM LEVEL 9.5 MG/DL (8.3-10.6); CREATININE FOR GFR 1.08 MG/DL (0.55-1.30); GLOMERULAR FILTRATION RATE 53.9 (>45)
[2023-04-30 23:08] LABS: RSV AMPLIFICATION NEGATIVE (NEGATIVE)
[2023-04-30 23:26] LABS: C REACTIVE PROTEIN QUANTITATIV 28.8 MG/DL (<1.0)
[2023-05-01] MEDS ORDERED: APIXABAN 5 MG TAB (ELIQUIS) PO ONE (00:25)
[2023-05-01 01:23] LABS: INR 1.48; PROTHROMBIN TIME 17.5 SECONDS (12.5-14.5)
[2023-05-01 01:24] LABS: PARTIAL THROMBOPLASTIN TIME 32.5 SECONDS (24.8-34.2)
[2023-05-01] MEDS ORDERED: GLUCAGON INJ 1MG VIAL SC PRN (04:20)
[2023-05-01] MEDS ORDERED: DEXTROSE 50% 50ML SYRINGE IV PRN (04:20)
[2023-05-01] MEDS ORDERED: GLUCOSE 4GM CHEW TABLET PO PRN (04:20)
[2023-05-01] MEDS ORDERED: ACETAMINOPHEN TAB 650MG DOSE (2X325MG) PO PRN (04:20)
[2023-05-01] MEDS ORDERED: PRED5TA PO (06:47)
[2023-05-01] MEDS ORDERED: DULO30CA9 PO (06:47)
[2023-05-01] MEDS ORDERED: DEXI60CA2 PO (06:47)
[2023-05-01] MEDS ORDERED: MYFO360T PO (06:47)
[2023-05-01] MEDS ORDERED: PRAV40TA2 PO (06:47)
[2023-05-01] MEDS ORDERED: URSO1TAB8 PO (06:47)
[2023-05-01] MEDS ORDERED: HYDR12CA PO (06:47)
[2023-05-01] MEDS ORDERED: ASPI-161 PO (06:47)
[2023-05-01] MEDS ORDERED: [UNRECOGNIZED DRUG - CODE] PO (06:47)
[2023-05-01] MEDS ORDERED: MODA100T13 PO (06:47)
[2023-05-01] MEDS ORDERED: GINK60CA2 PO (06:47)
[2023-05-01] MEDS ORDERED: INGR80CA PO (06:47)
[2023-05-01] MEDS ORDERED: ZOLP1.752 SL (06:47)
[2023-05-01] MEDS ORDERED: B-121TAB3 PO (06:47)
[2023-05-01] MEDS ORDERED: NITR4TASL SL (06:47)
[2023-05-01] MEDS ORDERED: POTA10TA67 PO (06:47)
[2023-05-01] MEDS ORDERED: MYRB50TA PO (06:47)
[2023-05-01] MEDS ORDERED: VITMTA PO (06:47)
[2023-05-01] MEDS ORDERED: LYRI200C PO (06:47)
[2023-05-01] MEDS ORDERED: PRES10CA2 PO (06:47)
[2023-05-01] MEDS ORDERED: DAPS10TA PO (06:47)
[2023-05-01] MEDS ORDERED: OYST500T91 PO (06:47)
[2023-05-01] MEDS ORDERED: ALBU2.5V10 INH (06:47)
[2023-05-01] MEDS ORDERED: PRED1TABL PO (06:47)
[2023-05-01] MEDS ORDERED: HOME MED LIST COMPLETE! XX SCH (06:50)
[2023-05-01 07:46] LABS: HEMATOCRIT 36.6 % (36.0-47.0); HEMOGLOBIN 11.7 g/dl (12.0-15.5); MEAN CORPUSCULAR HEMOGLOBIN 31.8 pg (27.0-33.0); MEAN CORPUSCULAR VOLUME 99.5 fl (80.0-96.0); PLATELET COUNT, AUTOMATED 142 10^3/uL (150-450); RED BLOOD COUNT 3.68 10^6/uL (4.00-5.40); WHITE BLOOD COUNT 7.7 10^3/uL (4.0-10.0)
[2023-05-01] MEDS: ULTRACET TAB PO PRN ×2 (08:13→21:33)
[2023-05-01 08:15] LABS: CALCIUM LEVEL 9.2 MG/DL (8.3-10.6); GLOMERULAR FILTRATION RATE 58.9 (>45); POTASSIUM SERUM 4.2 MMOL/L (3.5-5.1)
[2023-05-01] MEDS: INSULIN LISPRO (NovoLOG) PER UNIT SC SCH ×3 (08:26→17:30)
[2023-05-01 08:40] VITALS: BP 144/80; TEMP 96.7; O2SAT 97
[2023-05-01] MEDS ORDERED: URSODIOL 500 MG PO SCH (09:00)
[2023-05-01] MEDS ORDERED: DOXYCYCLINE HYCLATE 100MG TABLET PO SCH (09:00)
[2023-05-01] MEDS: INGREZZA 80 MG PO SCH (09:00)
[2023-05-01] MEDS ORDERED: MIRABEGRON 50 MG PO SCH (09:00)
[2023-05-01 09:15] VITALS: BP 144/80; TEMP 96.7; O2SAT 97
[2023-05-01 09:51] LABS: DRVV SCREEN 158.5 SECONDS
[2023-05-01] MEDS ORDERED: MODAFINIL 100 MG TABLET PO PRN (10:00)
[2023-05-01] MEDS ORDERED: POLYVINYL ALCOHOL OPHTH SOLN 15ML (LIQUITEARS) OU PRN (10:00)
[2023-05-01] MEDS ORDERED: ALBUTEROL SULFATE 2.5MG/0.5ML INH NEB SOLN INH PRN (10:00)
[2023-05-01 10:03] LABS: PTT LUPUS TYPE ANTICOAG SCREEN 4.05 (0-1.20)
[2023-05-01 10:11] LABS: DRVV CONFIRM 120.5 SECONDS; LUPUS CONFIRM RATIO 3.15
[2023-05-01 10:17] LABS: NORMALIZED RATIO 1.28 (0.00-1.20)
[2023-05-01] MEDS: ALBUTEROL SULFATE 2.5MG/0.5ML INH NEB SOLN INH SCH ×3 (11:33→19:04)
[2023-05-01] MEDS ORDERED: VANCOMYCIN HCL 1,000 MG, VIAL MATE ADAPTER 1 EACH in D5W 250 ML IV SCH (11:45)
[2023-05-01] MEDS: hydroCHLOROthiazide 12.5 MG CAPSULE PO SCH (13:14)
[2023-05-01] MEDS: CALCIUM/VITAMIN D 500 MG TAB PO SCH (13:14)
[2023-05-01] MEDS: DULoxetine 30MG CAPSULE (CYMBALTA) PO SCH (13:14)
[2023-05-01] MEDS: MULTIVITAMINS/MINERALS THERAP 1 TAB PO SCH (13:14)
[2023-05-01] MEDS: FLUCONAZOLE 100 MG TAB PO SCH (13:15)
[2023-05-01] MEDS: PREGABALIN 100 MG CAP (LYRICA) PO SCH ×2 (13:15→21:34)
[2023-05-01] MEDS: APIXABAN 5 MG TAB (ELIQUIS) PO SCH ×2 (13:15→21:34)
[2023-05-01] MEDS: ASPIRIN 81MG ENTERIC TABLET PO SCH (13:15)
[2023-05-01] MEDS: POTASSIUM CHLORIDE 10MEQ SR TABLET PO SCH (13:16)
[2023-05-01] MEDS: predniSONE 5 MG TAB PO SCH (13:16)
[2023-05-01] MEDS: predniSONE 1 MG TAB PO SCH (13:16)
[2023-05-01] MEDS: MODAFINIL 100 MG TABLET PO SCH (13:16)
[2023-05-01] MEDS: FAMOTIDINE 20 MG TAB PO SCH ×2 (13:16→21:34)
[2023-05-01 14:00] VITALS: BP 138/78; TEMP 97.2; O2SAT 96
[2023-05-01] MEDS: VANCOMYCIN HCL 750 MG, VIAL MATE ADAPTER 1 EACH in D5W 250 ML IV SCH (14:35)
[2023-05-01 18:15] VITALS: BP 120/85; TEMP 97.3; O2SAT 96
[2023-05-01] MEDS ORDERED: PRAVASTATIN 20 MG TAB PO SCH (21:00)
[2023-05-01] MEDS ORDERED: DAPSONE 100 MG TAB PO SCH (21:00)
[2023-05-01 21:12] VITALS: BP 121/83; TEMP 98.1; O2SAT 96
[2023-05-01] MEDS: MYCOPHENOLIC ACID 360 MG PO SCH (21:35)
[2023-05-02] MEDS: VANCOMYCIN HCL 750 MG, VIAL MATE ADAPTER 1 EACH in D5W 250 ML IV SCH (00:34)
[2023-05-02 06:24] VITALS: BP 115/73; TEMP 97.7; O2SAT 97
[2023-05-02] MEDS: INSULIN LISPRO (NovoLOG) PER UNIT SC SCH ×2 (07:30→13:32)
[2023-05-02] MEDS: ALBUTEROL SULFATE 2.5MG/0.5ML INH NEB SOLN INH SCH ×2 (07:35→12:00)
[2023-05-02 07:54] LABS: HEMATOCRIT 35.4 % (36.0-47.0); MEAN CORPUSCULAR HEMOGLOBIN 30.9 pg (27.0-33.0); MEAN CORPUSCULAR HGB CONC 31.1 g/dl (32.0-36.5); MEAN CORPUSCULAR VOLUME 99.4 fl (80.0-96.0); PLATELET COUNT, AUTOMATED 154 10^3/uL (150-450); RED BLOOD COUNT 3.56 10^6/uL (4.00-5.40); WHITE BLOOD COUNT 7.1 10^3/uL (4.0-10.0)
[2023-05-02 08:17] LABS: BLOOD UREA NITROGEN 13 MG/DL (9-23); CALCIUM LEVEL 8.6 MG/DL (8.3-10.6); CARBON DIOXIDE LEVEL 26 MMOL/L (20-31); CHLORIDE LEVEL 102 MMOL/L (98-107); GLOMERULAR FILTRATION RATE > 60.0 (>45); GLUCOSE, FASTING 92 MG/DL (74-106); MAGNESIUM LEVEL 1.8 MG/DL (1.8-2.4); POTASSIUM SERUM 3.8 MMOL/L (3.5-5.1); SODIUM LEVEL 139 MMOL/L (136-145)
[2023-05-02] MEDS ORDERED: ELIQ5TAB PO (09:00)
[2023-05-02] MEDS: INGREZZA 80 MG PO SCH (09:00)
[2023-05-02] MEDS: MYCOPHENOLIC ACID 360 MG PO SCH (09:00)
[2023-05-02] MEDS: POTASSIUM CHLORIDE 10MEQ SR TABLET PO SCH (10:16)
[2023-05-02] MEDS: predniSONE 5 MG TAB PO SCH (10:16)
[2023-05-02] MEDS: predniSONE 1 MG TAB PO SCH (10:17)
[2023-05-02] MEDS: MULTIVITAMINS/MINERALS THERAP 1 TAB PO SCH (10:17)
[2023-05-02] MEDS: FLUCONAZOLE 100 MG TAB PO SCH (10:18)
[2023-05-02] MEDS: PREGABALIN 100 MG CAP (LYRICA) PO SCH (10:18)
[2023-05-02] MEDS: CALCIUM/VITAMIN D 500 MG TAB PO SCH (10:19)
[2023-05-02] MEDS: hydroCHLOROthiazide 12.5 MG CAPSULE PO SCH (10:19)
[2023-05-02] MEDS: ASPIRIN 81MG ENTERIC TABLET PO SCH (10:19)
[2023-05-02] MEDS: FAMOTIDINE 20 MG TAB PO SCH (10:19)
[2023-05-02] MEDS: APIXABAN 5 MG TAB (ELIQUIS) PO SCH (10:20)
[2023-05-02] MEDS: DULoxetine 30MG CAPSULE (CYMBALTA) PO SCH (10:22)
[2023-05-02] MEDS: MODAFINIL 100 MG TABLET PO SCH (10:23)
[2023-05-02] MEDS ORDERED: CEPH500C PO (10:41)
[2023-05-02] MEDS ORDERED: CEPHALEXIN 500 MG CAP PO SCH (13:00)
[2023-05-02 14:00] VITALS: BP 121/72; TEMP 97.9; O2SAT 91
[2023-05-02] MEDS ORDERED: diphenhydrAMINE 25MG CAP PO ONE (15:45)
[2023-05-02] MEDS ORDERED: DOXY-444 PO (15:48)
[2023-05-02 16:08] LABS: CARDIOLIPIN IGA ANTIBODY <9 APL U/mL (0-11); CARDIOLIPIN IGG ANTIBODY <9 GPL U/mL (0-14); CARDIOLIPIN IGM ANTIBODY <9 MPL U/mL (0-12)
[2023-05-03 17:08] LABS: HEXAGONAL PHASE PHOSPHOLIPID 9 sec (0-11)
[2023-05-06 17:08] LABS: BETA-2 GLYCOPROTEIN I ABY IGA <9 (0-25); BETA-2 GLYCOPROTEIN I ABY IGG <9 (0-20); BETA-2 GLYCOPROTEIN I ABY IGM <9 (0-32)
[2023-05-07] MEDS ORDERED: APIXABAN 5 MG TAB (ELIQUIS) PO SCH (21:00)
[2023-05-12 13:07] LABS: ANTI THROMBIN 3 ANTIGEN IMMUNO 109 % (72-124); ANTI THROMBIN 3 FUNCT ACTIVITY 186 % (75-135); F8 ACTIVITY FOR F8 PANEL 281 % (56-140); F8 ACTIVITY vWB FOR F8 PANEL 321 % (50-200); F8 ANTIGEN FOR F8 PANEL 354 % (50-200); PROTEIN C ANTIGEN 154 % (60-150); PROTEIN S ANTIGEN FREE 133 % (61-136); PROTEIN S ANTIGEN TOTAL 137 % (60-150)
== END 2023-05-02 16:30 | disposition home or self-care (01) ==
LOC: M ED 19:33 → M ED INP 19:34 → M MS4PR 05-01 08:53 → M MS5PR 05-01 18:10
PROVIDERS: ADMIT Internal Medicine; ATTEND Internal Medicine
DX: I82.812 Embolism and thrombosis of superficial veins of left lower extremity (principal); I82.412 Acute embolism and thrombosis of left femoral vein; M32.9 Systemic lupus erythematosus, unspecified; J96.10 Chronic respiratory failure, unspecified whether with hypoxia or hypercapnia; K58.9 Irritable bowel syndrome, unspecified; Z90.49 Acquired absence of other specified parts of digestive tract; Z93.2 Ileostomy status; I25.10 Atherosclerotic heart disease of native coronary artery without angina pectoris; I25.2 Old myocardial infarction; M79.7 Fibromyalgia; D50.9 Iron deficiency anemia, unspecified; Z86.718 Personal history of other venous thrombosis and embolism; M79.89 Other specified soft tissue disorders; R11.0 Nausea; J43.9 Emphysema, unspecified; J30.1 Allergic rhinitis due to pollen; G40.909 Epilepsy, unspecified, not intractable, without status epilepticus; Z79.899 Other long term (current) drug therapy; Z79.52 Long term (current) use of systemic steroids; Z79.82 Long term (current) use of aspirin; Z88.0 Allergy status to penicillin; Z88.8 Allergy status to other drugs, medicaments and biological substances; Z88.5 Allergy status to narcotic agent; Z91.048 Other nonmedicinal substance allergy status
CPT/HCPCS: 36415; 80048; 81240; 81241; 83090; 83605; 83735; 85025; 85027; 85230; 85240; 85245; 85246; 85300; 85301; 85302; 85305; 85306; 85307; 85598; 85610; 85613; 85652; 85730; 86140; 86146; 86147; 87040; 87631; 87641; 93041; 93971; 94640; 94760; 96365; 96375; 96376; 97161; 97165; 97530; 99285; G0378; J1815; J7512

== ENCOUNTER → 2023-05-20 | Outpatient (REF) | payer MEDICARE ==
[~2023-05-20] MED LIST changes: +ALBU2.5V10 INH; +ASPI-161 PO; +B-121TAB3 PO; +CEPH500C PO; +DAPS10TA PO; +DOXY-444 PO; +DULO30CA9 PO; +ELIQ5TAB PO; +GINK60CA2 PO; +HYDR12CA PO; +INGR80CA PO; +LYRI200C PO; +MODA100T13 PO; +MYFO360T PO; +MYRB50TA PO; +NITR4TASL SL; +OYST500T91 PO; +POTA10TA67 PO; +PRAV40TA2 PO; +PRED5TA PO; +PRES10CA2 PO; +URSO1TAB8 PO; +VITMTA PO; +ZOLP1.752 SL; +[UNRECOGNIZED DRUG - CODE] PO
== END ==
LOC: M LAB REF 17:00
PROVIDERS: ATTEND Internal Medicine
DX: E78.2 Mixed hyperlipidemia (principal)

== ENCOUNTER → 2023-07-01 | Outpatient (CLI) | payer MEDICARE | LOC: M WHC 12:30 | PROVIDERS: ATTEND Internal Medicine | DX: Z12.31 Encounter for screening mammogram for malignant neoplasm of breast (principal) ==

== ENCOUNTER → 2023-07-23 | Outpatient (CLI) | payer MEDICARE | LOC: M RAD 11:37 | PROVIDERS: ATTEND Internal Medicine | DX: Z86.718 Personal history of other venous thrombosis and embolism (principal) ==

== ENCOUNTER → 2023-07-28 | Outpatient (CLI) | payer MEDICARE | LOC: M PLAIMG 10:41 | PROVIDERS: ATTEND Internal Medicine Pulmonary Disease | DX: J84.9 Interstitial pulmonary disease, unspecified (principal) ==

== ENCOUNTER → 2023-11-14 | Outpatient (REF) | payer MEDICARE ==
[~2023-11-14] MED LIST changes: -ASPI-161 PO; +ASPI-615 PO
[2023-11-16 08:10] LABS: LDL DIRECT 104 mg/dL (0-99)
== END ==
LOC: M LAB REF 16:11
PROVIDERS: ATTEND Internal Medicine
DX: E78.00 Pure hypercholesterolemia, unspecified (principal)

== ENCOUNTER → 2024-02-09 | Outpatient (REF) | payer MEDICARE ==
[~2024-02-09] MED LIST changes: +DAPS100T22 PO; -DAPS10TA PO; +DOXY-440 PO; -DOXY-444 PO
[2024-02-11 11:59] LABS: DRVV SCREEN 55.1 SECONDS
[2024-02-11 12:05] LABS: PTT LUPUS TYPE ANTICOAG SCREEN 1.39 (0-1.20)
[2024-02-11 12:13] LABS: DRVV CONFIRM 53.6 SECONDS; LUPUS CONFIRM RATIO 1.39
[2024-02-12 13:08] LABS: HOMOCYST(E)INE SERUM 8.4 umol/L (0.0-17.2); PROTEIN C FUNCTIONAL ACTIVITY 190 % (73-180); PROTEIN S FUNCTIONAL ACTIVITY 77 % (63-140)
== END ==
LOC: M LAB REF 12:24
PROVIDERS: ATTEND Internal Medicine
DX: D61.818 Other pancytopenia (principal)

== ENCOUNTER 2024-06-28 10:46 | Emergency (ER) | payer MEDICARE ==
[~2024-06-28] VITALS: Ht 154.9 cm; Wt 67.0 kg
[2024-06-28] MEDS: NS 1,000 ML IV ONE ×2 (11:20→17:20)
[2024-06-28] MEDS ORDERED: ANIF300V IV (11:20)
[2024-06-28] MEDS ORDERED: CELE1CAP99 PO (11:20)
[2024-06-28] MEDS ORDERED: ELIQ2.5T PO (11:20)
[2024-06-28] MEDS ORDERED: [UNRECOGNIZED DRUG - CODE] SC (11:21)
[2024-06-28 11:59] LABS: HEMATOCRIT 44.3 % (36.0-47.0); MEAN CORPUSCULAR HEMOGLOBIN 29.7 pg (27.0-33.0); MEAN CORPUSCULAR HGB CONC 31.6 g/dl (32.0-36.5); MEAN CORPUSCULAR VOLUME 94.1 fl (80.0-96.0); PLATELET COUNT, AUTOMATED 364 10^3/uL (150-450); RED BLOOD COUNT 4.71 10^6/uL (4.00-5.40); WHITE BLOOD COUNT 6.4 10^3/uL (4.0-10.0)
[2024-06-28 12:10] LABS: INR 1.42; PARTIAL THROMBOPLASTIN TIME 35.3 SECONDS (24.8-34.2); PROTHROMBIN TIME 17.7 SECONDS (12.5-14.5)
[2024-06-28] MEDS: NS 2,010 ML in IV 1 EA IV ONE (12:30)
[2024-06-28 12:41] LABS: ATYPICAL LYMPH 8 % (0-5); BASOPHILS 1 % (0-1); LYMPHOCYTES 9 % (16-44); METAMYELOCYTES 1 % (0-0); MONOCYTES 20 % (0-5); NEUTROPHILS 36 % (28-66)
[2024-06-28 12:42] LABS: ANISOCYTOSIS 1+; PLATELET ESTIMATE NORMAL (NORMAL)
[2024-06-28 12:49] LABS: ALBUMIN 4.1 G/DL (3.2-5.2); BILIRUBIN,DIRECT 0.2 MG/DL (<0.4); BILIRUBIN,TOTAL 0.6 MG/DL (0.3-1.2); CALCIUM LEVEL 11.6 MG/DL (8.3-10.6); CK-MB VALUE MASS 4.3 NG/ML (<3.6); CREATININE FOR GFR 3.54 MG/DL (0.55-1.30); GLOMERULAR FILTRATION RATE 13.6 (>45); POTASSIUM SERUM 6.5 MMOL/L (3.5-5.1); TOTAL PROTEIN 7.9 G/DL (5.7-8.2)
[2024-06-28 14:03] LABS: VENOUS BASE EXCESS -12.7 (-2.0-2.0); VENOUS HCO3 16.3 MMOL/L (23.0-27.0); VENOUS O2 SATURATION 90.6 % (60.0-80.0); VENOUS PARTIAL PRESSURE CO2 49.5 mmHg (38.0-50.0); VENOUS PARTIAL PRESSURE O2 76.8 mmHg (30.0-50.0); VENOUS PH 7.135 UNITS (7.330-7.430); VENOUS STANDARD HCO3 14.6 MMOL/L; VENOUS TOTAL CO2 17.8 MMOL/L (24.0-28.0)
[2024-06-28] MEDS: PIPERACILLIN/TAZOBACTAM SOD 4.5 GM in DEXTROSE 5% (D5W) ADV/MINI-BAG 50 ML IV ONE (15:27)
[2024-06-28 16:15] VITALS: TEMP 97.8
[2024-06-28 18:15] LABS: VENOUS BASE EXCESS -9.5 (-2.0-2.0); VENOUS HCO3 17.7 MMOL/L (23.0-27.0); VENOUS O2 SATURATION 69.8 % (60.0-80.0); VENOUS PARTIAL PRESSURE CO2 43.3 mmHg (38.0-50.0); VENOUS PARTIAL PRESSURE O2 42.2 mmHg (30.0-50.0); VENOUS PH 7.229 UNITS (7.330-7.430); VENOUS STANDARD HCO3 16.4 MMOL/L
[2024-06-28 18:46] LABS: CALCIUM LEVEL 9.1 MG/DL (8.3-10.6); CREATININE FOR GFR 2.64 MG/DL (0.55-1.30); GLOMERULAR FILTRATION RATE 19.1 (>45); POTASSIUM SERUM 5.4 MMOL/L (3.5-5.1)
[2024-06-28] MEDS ORDERED: LYRI225C PO (19:56)
[2024-06-28] MEDS ORDERED: CYCL5TAB PO (19:56)
[2024-06-28] MEDS ORDERED: MODA200T15 PO (19:56)
[2024-06-28] MEDS ORDERED: VENTAER INH (19:56)
[2024-06-28] MEDS ORDERED: MULT-40 PO (19:56)
[2024-06-28] MEDS ORDERED: HOME MED LIST COMPLETE! XX SCH (20:00)
[2024-06-28 20:45] VITALS: BP 111/64; O2SAT 94
== END 2024-06-28 20:54 | disposition short-term general hospital (02) ==
LOC: EDBD 10:46 → M ED 10:46
DX: K50.918 Crohn's disease, unspecified, with other complication (principal); N17.9 Acute kidney failure, unspecified; A41.9 Sepsis, unspecified organism; E87.5 Hyperkalemia; E86.0 Dehydration; I25.119 Atherosclerotic heart disease of native coronary artery with unspecified angina pectoris; I25.2 Old myocardial infarction; E78.5 Hyperlipidemia, unspecified; I10 Essential (primary) hypertension; Z88.5 Allergy status to narcotic agent; Z88.8 Allergy status to other drugs, medicaments and biological substances; Z91.09 Other allergy status, other than to drugs and biological substances; Z91.048 Other nonmedicinal substance allergy status; Z79.01 Long term (current) use of anticoagulants; Z79.51 Long term (current) use of inhaled steroids; Z79.52 Long term (current) use of systemic steroids; Z79.810 Long term (current) use of selective estrogen receptor modulators (SERMs); Z79.899 Other long term (current) drug therapy
CPT/HCPCS: 71045; 74176; 80047; 80048; 80076; 82550; 82553; 82803; 83605; 83690; 84484; 85025; 85610; 85730; 86850; 86900; 86901; 87040; 87486; 87507; 87581; 87633; 87798; 93005; 93041; 96360; 96361; 96365; 96366; 99285; J2543

== ENCOUNTER → 2024-09-07 | Outpatient (CLI) | payer MEDICARE ==
[~2024-09-07] MED LIST changes: +ANIF300V IV; +CELE1CAP99 PO; +CYCL5TAB4 PO; +ELIQ2.5T PO; +LYRI225C PO; +MODA200T15 PO; +MULT-40 PO; +VENTAER INH; +[UNRECOGNIZED DRUG - CODE] SC
== END ==
LOC: M WHC 13:52
PROVIDERS: ATTEND Internal Medicine
DX: Z12.31 Encounter for screening mammogram for malignant neoplasm of breast (principal); M81.0 Age-related osteoporosis without current pathological fracture

== ENCOUNTER → 2025-03-31 | Outpatient (REF) | payer MEDICARE ==
[~2025-03-31] MED LIST changes: +HYDR12.510 PO; -HYDR12CA PO; -PRAV40TA2 PO; +PRAV40TA85 PO; +PRED-1142 PO; -PRED1TABL PO; +URSO1TAB2 PO; -URSO1TAB8 PO
== END ==
LOC: M LAB REF 11:59
PROVIDERS: ATTEND Student in an Organized Health Care Education/Training Program
DX: R30.0 Dysuria (principal)